=== PATIENT | female | born 1965 | race Caucasian/White ===

== ENCOUNTER → 2020-07-10 11:01 | Outpatient (BNVA) | payer OTHER, SELFPAY | PROVIDERS: PCP Internal Medicine; Visit Provider Anesthesiology | DX: M79.18 Myalgia, other site (principal); M25.519 Pain in unspecified shoulder | CPT/HCPCS: 99202; Q3014 ==

== ENCOUNTER 2021-05-22 13:10 | Outpatient (REF) | payer OTHER, SELFPAY ==
--- NOTE | ~2021-05-22 | MM_ITS ---
EXAMINATION: MM SCREENING DIGITAL BREAST TOMOSYNTHESIS, BILATERAL CLINICAL INFORMATION: Screening. Asymptomatic. The lifetime risk of breast cancer based on the Tyrer-Cuzick Model is 6%. COMPARISON: Mammography: 10/26/2018, 06/26/2016, 05/24/2015 TECHNIQUE: Digital breast tomosynthesis is performed in both the craniocaudal and mediolateral oblique views along with computer-aided detection (CAD). Synthesized 2D images are generated from the tomosynthesis. FINDINGS: The breasts are heterogeneously dense, which may obscure small masses (ACR BI-RADS breast composition Category c). There are no significant masses, abnormal calcifications, or other abnormalities. There are shifting fibroglandular densities as expected related to positioning from year to year. No developing density. The axilla and skin contours are unremarkable. MM/MM tomosynthesis screening BI IMPRESSION: No significant changes from prior exams. ASSESSMENT: BI-RADS 1: Negative RECOMMENDATION: Routine annual mammography screening. This patient's information was entered into a reminder system with a target due date for their next mammogram.
== END 2021-05-22 13:11 | disposition home or self-care (01) ==
LOC: HO.MAMMO 13:10
PROVIDERS: Visit Provider Internal Medicine
DX: Z12.31 Encounter for screening mammogram for malignant neoplasm of breast (principal)
CPT/HCPCS: 77063; 77067

== ENCOUNTER 2021-08-14 09:58 | Outpatient (REF) | payer OTHER, SELFPAY ==
[2021-08-14 11:18] LABS: MANUAL DIFF FLAG NO
[2021-08-14 11:21] LABS: Basophils Percent Auto 0.5 % (0-2); Eosinophils Absolute Auto 0.4 X10*3/uL (0.0-0.4); Eosinophils Percent Auto 4.8 % (0-4); Hematocrit 36.3 % (37.0-47.0); Hemoglobin 11.7 g/dl (12.0-16.0); Imm Gran Abs Auto 0.02 X10*3/uL (0.00-0.03); Imm Gran Pct Auto 0.2 % (0.0-0.4); Lymphocytes Absolute Auto 3.5 X10*3/uL (1.2-4.9); Lymphocytes Percent Auto 41.2 % (20-40); Mean Corpuscular HGB Conc 32.2 g/dl (31.0-35.0); Mean Corpuscular Hemoglobin 30.2 pg (27.0-33.0); Mean Corpuscular Volume 93.8 fL (80.0-98.0); Mean Platelet Volume 10.5 fL (9.4-12.3); Monocytes Absolute Auto 0.9 X10*3/uL (0.1-1.2); Monocytes Percent Auto 10.6 % (2-11); Neutrophils Absolute Auto 3.7 x10*3/uL (2.0-8.3); Neutrophils Percent Auto 42.7 % (45-73); Platelet Count 236 X10*3/uL (160-400); Red Blood Count 3.87 X10*6/uL (4.20-5.50); Red Cell Distribution Width 13.5 % (11.0-16.0); White Blood Count 8.6 X10*3/uL (4.8-10.8)
[2021-08-14 11:54] LABS: Alanine Aminotransferase 16 U/L (0-31); Alkaline Phosphatase 80 U/L (39-117); Anion Gap 10 (12-20); Aspartate Amino Transferase 17 U/L (5-31); Bilirubin Total 0.5 mg/dL (0.0-1.0); Blood Urea Nitrogen 9 mg/dL (9-16); Calcium 10.1 mg/dL (8.4-10.2); Carbon Dioxide 30 mmol/L (22-29); Chloride 106 mmol/L (96-108); Estimated Glomerular Filt Rate > 60; Glucose Random 102 mg/dL (60-115); Potassium 4.1 mmol/L (3.3-5.1); Sodium 142 mmol/L (135-145); Total Protein 7.6 g/dL (6.5-8.0)
== END 2021-08-14 09:59 | disposition home or self-care (01) ==
LOC: HO.LAB 09:58
PROVIDERS: PCP Internal Medicine; Referring Provider Internal Medicine; Visit Provider Nurse Practitioner
DX: K21.9 Gastro-esophageal reflux disease without esophagitis (principal); Z12.11 Encounter for screening for malignant neoplasm of colon; Z83.71 Family history of colonic polyps
CPT/HCPCS: 36415; 80053; 85025; 99212

== ENCOUNTER 2022-04-30 16:19 | Outpatient (REF) | payer OTHER, SELFPAY ==
--- NOTE | ~2022-04-30 | XR_ITS ---
EXAMINATION:XR foot RT min 3V, XR ankle RT min 3V VIEWS ACQUIRED: Frontal lateral and oblique CLINICAL INFORMATION: Reason for Exam INJURY COMPARISON: None available at the time of this dictation. FINDINGS: Small osseous structure near the tip of the lateral malleolus could be a chip fracture versus accessory ossicle. Distal tibia and fibula are intact, tibial plafond and ankle mortise are normal. Talar dome is intact. No dislocation.. Intertarsal, tarsometatarsal, metatarsophalangeal and interphalangeal joints are intact. Surrounding soft tissues is normal. , Small posterior calcaneal spur. XR/XR foot RT min 3V IMPRESSION: Tiny 3 mm osseous structure near the tip of the lateral malleolus could be a chip fracture from the lateral aspect of the talus, alternatively small accessory ossicle. Please correlate with area of tenderness, MRI or CT scan could be utilized for further investigation if clinically indicated. No dislocation.
--- NOTE | ~2022-04-30 | XR_ITS ---
EXAMINATION:XR foot RT min 3V, XR ankle RT min 3V VIEWS ACQUIRED: Frontal lateral and oblique CLINICAL INFORMATION: Reason for Exam INJURY COMPARISON: None available at the time of this dictation. FINDINGS: Small osseous structure near the tip of the lateral malleolus could be a chip fracture versus accessory ossicle. Distal tibia and fibula are intact, tibial plafond and ankle mortise are normal. Talar dome is intact. No dislocation.. Intertarsal, tarsometatarsal, metatarsophalangeal and interphalangeal joints are intact. Surrounding soft tissues is normal. , Small posterior calcaneal spur. XR/XR ankle RT min 3V IMPRESSION: Tiny 3 mm osseous structure near the tip of the lateral malleolus could be a chip fracture from the lateral aspect of the talus, alternatively small accessory ossicle. Please correlate with area of tenderness, MRI or CT scan could be utilized for further investigation if clinically indicated. No dislocation.
== END 2022-04-30 16:20 | disposition home or self-care (01) ==
LOC: HO.XRAY 16:19
PROVIDERS: Visit Provider Emergency Medicine
DX: S99.911A Unspecified injury of right ankle, initial encounter (principal); S99.921A Unspecified injury of right foot, initial encounter
CPT/HCPCS: 73610; 73630

== ENCOUNTER → 2022-05-21 14:57 | Outpatient (BNVA) | payer OTHER, SELFPAY | PROVIDERS: PCP Internal Medicine; Visit Provider Physician Assistant | DX: S93.401A Sprain of unspecified ligament of right ankle, initial encounter (principal) | CPT/HCPCS: 99202 ==

== ENCOUNTER 2022-05-25 11:15 | Outpatient (REF) | payer OTHER, SELFPAY ==
--- NOTE | ~2022-05-25 | MM_ITS ---
EXAMINATION: MM SCREENING DIGITAL BREAST TOMOSYNTHESIS, BILATERAL CLINICAL INFORMATION: Screening. Asymptomatic. The lifetime risk of breast cancer based on the Tyrer-Cuzick Model is 4%. COMPARISON: Mammography: 05/22/2021, 05/28/2019, 06/26/2016 TECHNIQUE: Digital breast tomosynthesis is performed in both the craniocaudal and mediolateral oblique views along with computer-aided detection (CAD). Synthesized 2D images are generated from the tomosynthesis. FINDINGS: There are scattered areas of fibroglandular density (ACR BI-RADS breast composition Category b). There are no significant masses, abnormal calcifications, or other abnormalities. Parenchymal pattern is similar to prior studies. No architectural abnormality. The axilla are unremarkable. No significant changes. MM/MM tomosynthesis screening BI IMPRESSION: No mammographic evidence of malignancy. ASSESSMENT: BI-RADS 1: Negative RECOMMENDATION: Routine annual mammography screening. This patient's information was entered into a reminder system with a target due date for their next mammogram.
== END 2022-05-25 11:16 | disposition home or self-care (01) ==
LOC: HO.MAMMO 11:15
PROVIDERS: Visit Provider Internal Medicine
DX: Z12.31 Encounter for screening mammogram for malignant neoplasm of breast (principal)
CPT/HCPCS: 77063; 77067

== ENCOUNTER 2022-07-09 11:20 | Outpatient (REF) | payer OTHER, SELFPAY ==
--- NOTE | ~2022-07-09 | XR_ITS ---
EXAMINATION: XR ANKLE, RIGHT CLINICAL INFORMATION: Pain COMPARISON: None TECHNIQUE: AP, lateral, and mortise views of the right ankle. FINDINGS: Normal bony mineralization. No fracture, dislocation, destructive process, or visible ankle capsular effusion. The ankle mortise is symmetric. No visible osteochondral lesion talar dome. Subtalar joint unremarkable. The retrocalcaneal recess is preserved. There is a small corticated ossicle adjacent to lateral talar neck just distal to the tip lateral malleolus. There is a bulky posterior calcaneal spur and borderline plantar calcaneal spur. Base fifth metatarsal intact. XR/XR ankle RT min 3V IMPRESSION: -Bulky posterior calcaneal spur. Borderline plantar calcaneal spur. -Tiny corticated ossicle adjacent to lateral talar neck just distal to lateral malleolus. -No fracture, destructive process, or visible ankle capsular effusion.
--- NOTE | ~2022-07-09 | XR_ITS ---
EXAMINATION: XR KNEE, RIGHT XR KNEE, LEFT CLINICAL INFORMATION: Bilateral knee pain COMPARISON: Left knee radiographs 05/30/2018 TECHNIQUE: Each knee is imaged in 4 views. There are a total of 8 views. FINDINGS: Right: Normal bony mineralization. No joint narrowing or erosive change or chondrocalcinosis. No suprapatellar effusion. Hoffa's fat pad appears normal. Axial patella shows no lateralization or tilting. Left: Normal bony mineralization. No joint narrowing or erosive change or chondrocalcinosis. No suprapatellar effusion. Hoffa's fat pad appears normal. Axial patella shows no lateralization or tilting. XR/XR knee LT 4V IMPRESSION: -Unremarkable bilateral knees.
--- NOTE | ~2022-07-09 | XR_ITS ---
EXAMINATION: XR WRIST, RIGHT XR WRIST, LEFT CLINICAL INFORMATION: Fall, pain COMPARISON: None TECHNIQUE: Each wrist is imaged in 4 views. There are a total of 8 views. FINDINGS: Right: No fracture, dislocation, destructive process. Ulnar variance is neutral. There is borderline dorsal bowing distal ulnar. Pronator quadratus fat pad appears normal. No joint narrowing or erosive change or chondrocalcinosis. Left: No fracture, dislocation, destructive process. Ulnar variance is neutral. Pronator quadratus fat pad appears normal. No joint narrowing or erosive change or chondrocalcinosis. XR/XR wrist LT min 3V IMPRESSION: 1. No fracture, dislocation, or arthropathy. 2. Borderline dorsal bowing right distal ulnar.
--- NOTE | ~2022-07-09 | XR_ITS ---
EXAMINATION: XR ELBOW, LEFT CLINICAL INFORMATION: Elbow pain COMPARISON: None TECHNIQUE: AP, lateral, and oblique views of the left elbow. FINDINGS: Normal bony mineralization. No fracture, dislocation, destructive process, or visible capsular effusion. There are 2 punctate ossifications adjacent to the coronoid process and small lateral epicondylar spur. No joint narrowing or erosive change. XR/XR elbow LT min 3V IMPRESSION: -Small lateral epicondylar spur. -2 punctate ossifications adjacent to coronoid process. -No joint narrowing, erosive change, or visible capsular effusion.
--- NOTE | ~2022-07-09 | XR_ITS ---
EXAMINATION: XR WRIST, RIGHT XR WRIST, LEFT CLINICAL INFORMATION: Fall, pain COMPARISON: None TECHNIQUE: Each wrist is imaged in 4 views. There are a total of 8 views. FINDINGS: Right: No fracture, dislocation, destructive process. Ulnar variance is neutral. There is borderline dorsal bowing distal ulnar. Pronator quadratus fat pad appears normal. No joint narrowing or erosive change or chondrocalcinosis. Left: No fracture, dislocation, destructive process. Ulnar variance is neutral. Pronator quadratus fat pad appears normal. No joint narrowing or erosive change or chondrocalcinosis. XR/XR wrist RT min 3V IMPRESSION: 1. No fracture, dislocation, or arthropathy. 2. Borderline dorsal bowing right distal ulnar.
--- NOTE | ~2022-07-09 | XR_ITS ---
EXAMINATION: XR KNEE, RIGHT XR KNEE, LEFT CLINICAL INFORMATION: Bilateral knee pain COMPARISON: Left knee radiographs 05/30/2018 TECHNIQUE: Each knee is imaged in 4 views. There are a total of 8 views. FINDINGS: Right: Normal bony mineralization. No joint narrowing or erosive change or chondrocalcinosis. No suprapatellar effusion. Hoffa's fat pad appears normal. Axial patella shows no lateralization or tilting. Left: Normal bony mineralization. No joint narrowing or erosive change or chondrocalcinosis. No suprapatellar effusion. Hoffa's fat pad appears normal. Axial patella shows no lateralization or tilting. XR/XR knee RT 4V IMPRESSION: -Unremarkable bilateral knees.
== END 2022-07-09 11:21 | disposition home or self-care (01) ==
LOC: HO.XRAY 11:20
PROVIDERS: PCP Internal Medicine; Visit Provider Registered Nurse
DX: M25.571 Pain in right ankle and joints of right foot (principal); M25.531 Pain in right wrist; M25.532 Pain in left wrist; M25.562 Pain in left knee; M25.561 Pain in right knee; M25.522 Pain in left elbow; W10.8XXD Fall (on) (from) other stairs and steps, subsequent encounter
CPT/HCPCS: 73080; 73110; 73564; 73610

== ENCOUNTER 2022-07-13 14:00 | Outpatient (RCR) | payer OTHER, SELFPAY ==
--- NOTE | 2022-06-23 16:17 | MHC.PT.EP ---
[facility] [place] Office [place] Office [place] Office [address] Diana Skaggs [address] [phone] F: [phone] F: [phone] F: [phone] F: [phone] Physical Therapy Plan of Care Date of Evaluation: Date of Surgery: NA Diagnosis: R ANKLE SPRAIN Assessment: Pt IS 56 YO F REFERRED TO PT FROM ORTHO ([facility]) WITH 1.5 MONTH HX OF R ANKLE SPRAIN. Pt WAS STANDING FROM SIT WITH PAIN IN L KNEE (OPP SIDE) AND R LE NUMB (BACK ISSUES) AND TWISTED R ANKLE AND FELL. XRAY NEG DISLOC BUT +SMALL(3MM) BONE CHIP ANT TO LAT MALLEOLUS. Pt PRESENTS WITH MIN GENERALIZED SWELLING R ANKLE, LIMP (NO AD OR ANKLE SUPPORT), DECREASED ANKLE ROM AND STRENGTH. SHOULD BENEFIT FROM PT TO ADDRESS THESE ISSUES. OF NOTE, Pt HAS BACK ISSUES (3 DISCS) AND HAS BEEN RECOMMENDED SURGERY. R LE PARESTHESIA Frequency and Duration: The patient will be seen 2X/WK X 8 WKS Short Term Goals: 1. INCREASED AWARENESS ANKLE CARE 2. I HEP WITH DC EX PLAN 3. IMPROVED GT PATTERN WITH LRAD/NO DEVICE Panel Edge Sealer Goals: 1. INCREASED R ANKLE ROM 5-10 DEGREES T/O 2. DECREASED R ANKLE PAIN AT LEAST 50% WITH ADLS 3. IMPROVED LEFI (0 AT SOC) Treatment Plan: Modalities to reduce pain, spasms and effusion. Manual therapy to restore motion and function. Therapeutic exercise to improve strength and flexibility. Neuromuscular re-education for posture and balance. Therapeutic activities to return to functional activities of daily living. Electronically signed by: ANNABELLE JACKMAN PT Please sign and return to therapist. Thank you for your referral.
--- NOTE | 2022-08-12 09:27 | MHC.PT.DC ---
[facility] [place] Office [place] Office [place] Office [address] Diana Skaggs [address] [phone] F: [phone] F: [phone] F: [phone] F: [phone] Physical Therapy Discharge Report Diagnosis: R ANKLE SPRAIN Date of Surgery: NA Date of Evaluation: 06/23/22 Date of Discharge: 08/12/22 Treatments to Date: 4 Cancellations to Date: 3 No Shows to Date: 2 Discharge Status: Patient Elected to Stop Recommend MD Follow-up Visit Non-compliance Discharge Summary: Pt SEEN FOR INIT EVAL AND 3 VISITS (THE LAST 07/13/22) WITHOUT SIGNIF RELIEF. Pt THEN CANCELLED NEXT 3 VISITS AWAITING XRAYS THEN NO SHOW X 2 WITHOUT FURTHER APPTS SCHEDULED. WILL DC AT THIS TIME Electronically signed by: ANNABELLE JACKMAN PT Please sign and return to therapist. Thank you for your referral.
== END 2022-08-12 09:28 | disposition home or self-care (01) ==
LOC: HO.PT 14:00
PROVIDERS: PCP Internal Medicine; Visit Provider Physician Assistant
DX: S93.401A Sprain of unspecified ligament of right ankle, initial encounter (principal)
CPT/HCPCS: 97110; 97162; 97530; 97535

== ENCOUNTER → 2022-09-09 13:38 | Outpatient (BNVA) | payer OTHER, SELFPAY | PROVIDERS: Visit Provider Physician Assistant | DX: S93.401D Sprain of unspecified ligament of right ankle, subsequent encounter (principal) | CPT/HCPCS: 99212 ==

== ENCOUNTER 2022-10-22 13:40 | Outpatient (REF) | payer OTHER, SELFPAY ==
--- NOTE | 2022-10-22 11:00 | EMG_ITS ---
Right tibial and peroneal motor studies were performed. Right sural and superficial sensory studies were performed. Tibial H-reflex was obtained, and needle examination was performed. IMPRESSION: Right lower lumbar radiculopathy. MD ARMOND Boyer/TALHA / [id number]
== END 2022-10-22 13:41 | disposition home or self-care (01) ==
LOC: HO.NEURO 13:40
PROVIDERS: PCP Internal Medicine; Visit Provider Internal Medicine
DX: M51.16 Intervertebral disc disorders with radiculopathy, lumbar region (principal)
CPT/HCPCS: 95886; 95909

== ENCOUNTER 2023-03-17 13:49 | Outpatient (AMB) | payer OTHER, SELFPAY ==
[2023-03-17 14:01] VITALS: BP 124/60; PULSE 74; RESP 14; O2SAT 98; BMI 24.0
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
== END 2023-03-17 14:23 | disposition home or self-care (01) ==
PROVIDERS: PCP Internal Medicine; Visit Provider Registered Nurse Emergency
DX: M54.16 Radiculopathy, lumbar region (principal); M47.816 Spondylosis without myelopathy or radiculopathy, lumbar region
CPT/HCPCS: 99214

== ENCOUNTER → 2023-03-17 13:49 | Outpatient (BNVA) | payer OTHER, SELFPAY | PROVIDERS: PCP Internal Medicine; Visit Provider Registered Nurse Emergency | DX: M54.16 Radiculopathy, lumbar region (principal); M47.816 Spondylosis without myelopathy or radiculopathy, lumbar region | CPT/HCPCS: 99212 ==

== ENCOUNTER 2023-05-17 12:54 | Outpatient (REF) | payer OTHER, SELFPAY | END 2023-05-17 12:55 | disposition home or self-care (01) | LOC: HO.MRI 12:54 | PROVIDERS: PCP Internal Medicine; Visit Provider Registered Nurse Emergency | DX: M54.16 Radiculopathy, lumbar region (principal); M47.816 Spondylosis without myelopathy or radiculopathy, lumbar region | CPT/HCPCS: 72148 ==

== ENCOUNTER 2023-05-31 10:19 | Outpatient (REF) | payer OTHER, SELFPAY ==
--- NOTE | ~2023-05-31 | MM_ITS ---
EXAMINATION: MM SCREENING DIGITAL BREAST TOMOSYNTHESIS, BILATERAL CLINICAL INFORMATION: Screening. Asymptomatic. COMPARISON: Mammography: This study is compared with prior exams dating back to 2016. TECHNIQUE: Digital breast tomosynthesis is performed in both the craniocaudal and mediolateral oblique views along with computer-aided detection (CAD). Synthesized 2D images are generated from the tomosynthesis. FINDINGS: There are scattered areas of fibroglandular density (ACR BI-RADS breast composition Category b). There are no significant masses, abnormal calcifications, or other abnormalities. MM/MM tomosynthesis screening BI IMPRESSION: No mammographic evidence of malignancy. ASSESSMENT: BI-RADS BI-RADS 1 - Negative RECOMMENDATION: Routine annual mammography screening. 1 year F/U This examination should not preclude the clinical evaluation of a suspicious palpable abnormality. This patient's information was entered into a reminder system with a target due date for their next mammogram.
== END 2023-05-31 10:20 | disposition home or self-care (01) ==
LOC: HO.MAMMO 10:19
PROVIDERS: PCP Internal Medicine; Visit Provider Internal Medicine
DX: Z12.31 Encounter for screening mammogram for malignant neoplasm of breast (principal)
CPT/HCPCS: 77063; 77067

== ENCOUNTER → 2023-05-31 10:45 | Outpatient (BNV) | payer OTHER, SELFPAY | PROVIDERS: PCP Internal Medicine; Visit Provider Radiology Diagnostic Radiology | DX: Z12.31 Encounter for screening mammogram for malignant neoplasm of breast (principal) | CPT/HCPCS: 77063; 77067 ==

== ENCOUNTER 2023-08-04 14:54 | Outpatient (AMB) | payer OTHER, SELFPAY ==
[2023-08-04 14:55] VITALS: BP 142/65; PULSE 97; O2SAT 97; BMI 26.9
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
== END 2023-08-04 15:27 | disposition home or self-care (01) ==
PROVIDERS: PCP Internal Medicine; Visit Provider Registered Nurse Emergency
DX: M54.16 Radiculopathy, lumbar region (principal); M47.816 Spondylosis without myelopathy or radiculopathy, lumbar region; M62.830 Muscle spasm of back
CPT/HCPCS: 99214

== ENCOUNTER → 2023-08-04 14:54 | Outpatient (BNVA) | payer OTHER, SELFPAY | PROVIDERS: PCP Internal Medicine; Visit Provider Registered Nurse Emergency | DX: M54.16 Radiculopathy, lumbar region (principal); M47.816 Spondylosis without myelopathy or radiculopathy, lumbar region; M62.830 Muscle spasm of back | CPT/HCPCS: 99212 ==

== ENCOUNTER 2023-12-12 11:55 | Emergency (ER) | payer OTHER, SELFPAY ==
--- NOTE | ~2023-12-12 | CT_ITS ---
EXAMINATION: CT head/brain wo IV con CLINICAL INFORMATION: dizziness, gait disturbance COMPARISON: Noncontrast head CT 08/15/2018. TECHNIQUE: Contiguous axial imaging was performed from the skull base to vertex without intravenous contrast. Sagittal and coronal reformatted images were obtained. This CT examination was performed using dose optimization techniques as appropriate, variously including the following: * Automated exposure control * Adjustment of mA and/or kV according to patient size (this includes techniques or standardized protocols for targeted exams where dose is matched to indication/reason for exam; i.e. extremities or head) Use of iterative reconstruction technique DLP: 637 mGy-cm FINDINGS: No acute osseous or soft tissue abnormality. The mastoid air cells and visualized portions of the paranasal sinuses are well aerated. There is no evidence of acute intracranial hemorrhage or territorial infarction. No abnormal mass effect or midline shift is seen. Salazar to white matter differentiation is well preserved. No extra-axial fluid collections are identified. No hydrocephalus. No significant volume loss. There is no abnormal attenuation within the brain parenchyma. CT/CT head/brain wo IV con IMPRESSION: No acute intracranial abnormality including hemorrhage, mass effect, hydrocephalus, or acute territorial edematous infarction.
[2023-12-12 12:20] VITALS: BP 158/77; PULSE 96; RESP 20; TEMP 36.6; O2SAT 99; BMI 26.8
--- NOTE | 2023-12-12 12:21 | ED.DIZZY ---
HPI - Dizziness General Chief Complaint: Dizziness Stated Complaint: lightheaded, blurry vision Time Seen by Provider: 12/12/23 12:53 Source: patient Mode of arrival: ambulatory Limitations: no limitations History of Present Illness HPI Narrative: 58 yo female with history of PTSD, depression, anxiety who presents to the ER for evaluation of dizziness and balance issues that started when she woke up this morning. Patient states the soon as she woke up she noticed that she was dizzy upon sitting up. She states she was walking to 1 side and swaying when she walked down the hallway. She reports symptoms are worse with ambulation and position changes. She reports intermittent blurry vision, none at present. No weakness, numbness, tingling. No nausea or vomiting. Symptoms have been waxing and waning. No history of vertigo. No headache. MD elicited complaint: dizziness Onset (ago): hour(s) Timing: sudden onset Severity: moderate Description: lightheadedness, off-balance and difficulty walking Context: change in body position Exacerbating factors: movement/ambulation, change in body position and standing Relieving factors: remaining still and lying down Associated neuro symptoms: vision changes Related Data Home Medications ?Medication ?Instructions ?Recorded ?Confirmed loratadine 10 mg tablet (Allergy 10 mg PO DAILY 07/10/20 09/09/22 Relief (loratadine)) lorazepam 0.5 mg tablet (Ativan) 0.5 mg PO BID PRN 07/10/20 09/09/22 lorazepam 1 mg/0.5 mL oral syringe 1 mg PO BID PRN 07/10/20 09/09/22 (FOR ORAL USE ONLY) naloxone 4 mg/actuation nasal 4 mg intranasal Q2M PRN 07/10/20 09/09/22 spray (Narcan) oxycodone 10 mg tablet 10 mg PO Q6H PRN 07/10/20 09/09/22 zolpidem 10 mg tablet 10 mg PO BEDTIME PRN 07/10/20 09/09/22 diclofenac sodium 1 % topical gel 1 ea topical QID 05/21/22 09/09/22 ibuprofen 400 mg tablet 800 mg PO Q8H PRN pain 05/21/22 09/09/22 zolpidem 5 mg tablet (Ambien) 5 mg PO BEDTIME PRN 05/21/22 09/09/22 Previous Rx's ?Medication ?Instructions ?Recorded tizanidine 4 mg capsule 4 mg PO TID PRN muscle spasticity 04/09/21 30 days #90 caps peg 3350-electrolytes 236 240 ml PO Q10M 1 day #4,000 mL 08/14/21 gram-22.74 gram-6.74 gram-5.86 gram solution (Golytely) lidocaine 5 % topical patch 1 patch topical DAILY pain #30 ea 03/17/23 ibuprofen 800 mg tablet 800 mg PO Q8H PRN for pain #90 tabs 06/02/23 tizanidine 2 mg tablet 2 mg PO TID PRN muscle spasticity 10/11/23 #90 tabs meclizine 50 mg tablet 50 mg PO BID PRN dizziness #14 tabs 12/12/23 Allergies Allergy/AdvReac Type Severity Reaction Status Date / Time morphine [MORPHINE] Allergy Intermediate RASH Verified 12/12/23 12:22 Review of Systems Review of Systems: Yes all other systems are reviewed and are negative [facility] Past Medical History Medical History Acute shoulder pain Anxiety Myofascial pain syndrome Surgical History H/O excision of dermoid cyst H/O shoulder surgery History of cholecystectomy History of tubal ligation Social History Social History Alcohol intake: former Smoked in Last 30 Days: No Use of substances other than those prescribed or required for medical reasons: No Advance Directives: No Advance Directives Information Provided: No Do you have a plan to hurt others: No Plan Current occupational status: disabled Current occupation: left hand Physical Exam Vital Signs: Vital Signs: Last Vital Signs Temp 98.1 F 12/12/23 15:40 Pulse 90 12/12/23 15:40 Resp 18 12/12/23 15:40 BP 117/77 12/12/23 15:40 Pulse Ox 98 12/12/23 15:40 O2 Del Method Room Air 12/12/23 15:40 BMI result Body Mass Index 26.8 Appearance: Alert. Oriented X3. No acute distress. Head: normocephalic, atraumatic. Eyes: Pupils equal, round and reactive to light. Horizontal nystagmus ENT: Pharynx normal. No tonsillar swelling or exudate. Neck: Normal inspection. Neck supple. CVS: Normal heart rate and rhythm. Pulses normal. Respiratory: No respiratory distress. Breath sounds normal. Abdomen: Soft and nontender. +BS x4 Skin: Skin warm and dry. Normal skin color. Normal skin turgor. No rashes. Extremities: No lower extremity edema. No joint swelling. Neuro/psych: Oriented X 3. No motor deficit. No sensory deficit. CN II-XII intact. Normal speech and cognition. Normal heel to jackson and finger to nose bilaterally. Course Course Course Narrative: This is an RME performed by Milena Murphy, SURVEILLANCE SYSTEMS ENGINEER: Additional HPI, ROS, PE not included below will be deferred to primary provider. Patient is a 58 y.o. old female who presents emergency department for evaluation reporting she Awoke this morning with dizziness lightheadedness and blurred vision. She states when getting out of bed she almost fell into the wall. She feels like she is having difficulty walking straight, feels as though she is being pulled to the left and right side. She reports feeling well before going to bed last night. Denies any history of similar symptoms in the past. Currently denies headache, neck pain, chest pain, shortness of breath, difficulty breathing, nausea, vomiting numbness or tingling of the extremities, symptoms. Denies any recent fall or injury. Plan: Labs, EKG Medications Administered Discontinued Medications Generic Name Dose Route Start Last Admin Trade Name Freq PRN Reason Stop Dose Admin Meclizine HCl 50 mg 12/12/23 13:46 12/12/23 14:07 Meclizine Hcl 25 Mg Tablet PO 12/12/23 13:47 50 mg ONCE ONE Administration Oxycodone HCl 10 mg 12/12/23 15:28 12/12/23 15:34 Oxycodone Hcl Immed Release 5 Mg Tablet PO 12/12/23 15:29 10 mg ONCE ONE Administration Medical Decision Making Medical Decision Making [facility] Narrative: 58-year-old female presents to the ER for evaluation of acute onset of dizziness and gait instability that started when she woke up this morning. NIH is 0 with no visual field deficits, normal cerebellar function on exam. Initial concern for posterior CVA, out of any treatment window for TNK Lab work is unremarkable. CT scan of the head is unremarkable. Orthostatics are negative. She was treated with 50 mg of meclizine with significant improvement in her symptoms. Most likely BPPV. She is on chronic oxycodone 10 mg every 6 hours, asking for her next dose. At this time patient is stable for discharge home with p.r.n. meclizine. She was given strict return precautions. Differential Diagnosis Differential Diagnoses: The differential diagnosis associated with the presentation includes BPPV, posterior CVA, orthostatic hypotension, TIA Admission/Observation Consideration of admission/observation: Escalation of care including admission/observation considered Lab Data MDM Lab Attestation statement: I reviewed the patient's lab results. no metabolic abnormality 12/12/23 12:35 12/12/23 12:35 Labs: Lab Results 12/12/23 Range/Units 12:35 WBC 7.7 (4.8-10.8) X10*3/uL RBC 4.07 L (4.20-5.50) X10*6/uL Hgb 12.4 (12.0-16.0) g/dl Hct 38.2 (37.0-47.0) % MCV 93.9 (80.0-98.0) fL MCH 30.5 (27.0-33.0) pg MCHC 32.5 (31.0-35.0) g/dl RDW 12.8 (11.0-16.0) % Plt Count 280 (160-400) X10*3/uL MPV 10.6 (9.4-12.3) fL Immature Gran % (Auto) 0.3 (0.0-0.4) % Neut % (Auto) 54.1 (45-73) % Lymph % (Auto) 34.4 (20-40) % Baxter % (Auto) 8.5 (2-11) % Eos % (Auto) 2.3 (0-4) % Baso % (Auto) 0.4 (0-2) % Lymph # (Auto) 2.6 (1.2-4.9) X10*3/uL Baxter # (Auto) 0.7 (0.1-1.2) X10*3/uL Eos # (Auto) 0.2 (0.0-0.4) X10*3/uL Baso # (Auto) 0.0 (0.0-0.2) X10*3/uL Abs Immat Gran (auto) 0.02 (0.00-0.03) X10*3/uL Absolute Neuts (auto) 4.2 (2.0-8.3) x10*3/uL Absolute Nucleated RBC 0.000 (0.0-0.012) X10*3/uL Nucleated RBC % (auto) 0.0 (0.0-0.2) /100WBC Sodium 140 (135-145) mmol/L Potassium 3.9 (3.3-5.1) mmol/L Chloride 107 (96-108) mmol/L Carbon Dioxide 25 (22-29) mmol/L Anion Gap 12 (12-20) BUN 12 (9-16) mg/dL Creatinine 0.71 (0.5-1.4) mg/dL Estim Creat Clear Calc 72.4 Estimated GFR > 60 Random Glucose 91 (60-115) mg/dL Calcium 9.6 (8.4-10.2) mg/dL Magnesium 1.9 (1.6-2.6) mg/dL Total Bilirubin 0.4 (0.0-1.0) mg/dL AST 17 (5-31) U/L ALT 14 (0-31) U/L Alkaline Phosphatase 96 (39-117) U/L Troponin I High Sens < 2.7 (<3.5-17.0) ng/L Total Protein 7.7 (6.5-8.0) g/dL Albumin 3.8 (3.5-5.0) g/dL Influenza Type A (PCR) NEGATIVE (Negative) Influenza Type B (PCR) NEGATIVE (Negative) RSV RNA Qual (PCR) NEGATIVE (Negative) SARS-CoV-2 RNA (RT-PCR) NEGATIVE (Negative) Independent Interpretation I performed an independent interpretation of an: EKG and CT Scan Interpretation: EKG with normal sinus rhythm, ventricular rate 78 beats per minute, normal CA interval, normal QTC, no ST segment elevations or depressions, no change from prior CT without acute bleed or edema Radiology Impression Discussion of test interpretation with radiology: I have reviewed the radiologist's reading. Radiologist Impression: EXAMINATION: CT head/brain wo IV con CLINICAL INFORMATION: dizziness, gait disturbance COMPARISON: Noncontrast head CT 08/15/2018. TECHNIQUE: Contiguous axial imaging was performed from the skull base to vertex without intravenous contrast. Sagittal and coronal reformatted images were obtained. This CT examination was performed using dose optimization techniques as appropriate, variously including the following: * Automated exposure control * Adjustment of mA and/or kV according to patient size (this includes techniques or standardized protocols for targeted exams where dose is matched to indication/reason for exam; i.e. extremities or head) Use of iterative reconstruction technique DLP: 637 mGy-cm FINDINGS: No acute osseous or soft tissue abnormality. The mastoid air cells and visualized portions of the paranasal sinuses are well aerated. There is no evidence of acute intracranial hemorrhage or territorial infarction. No abnormal mass effect or midline shift is seen. Salazar to white matter differentiation is well preserved. No extra-axial fluid collections are identified. No hydrocephalus. No significant volume loss. There is no abnormal attenuation within the brain parenchyma. CT/CT head/brain wo IV con IMPRESSION: No acute intracranial abnormality including hemorrhage, mass effect, hydrocephalus, or acute territorial edematous infarction. External Record Review External record reviewed: Outpatient record Tests considered The following testing was considered but not selected: Considered MRI Prescription Management I considered prescription management with: Other (Meclizine) Chronic Conditions Patient?s care impacted by: Other (Chronic pain on chronic opiates) Critical Care Time Critical Care Time Critical Care Time: No Discharge Plan Discharge Clinical Impression: Dizziness Patient Disposition: Home, Self-Care Instructions: Dizziness (ED) Additional Instructions: Your lab workup, EKG and CT head were all unremarkable today. You improved with treatment for vertigo. Take the prescribed medication as needed for ongoing dizziness. Rest and stay hydrated. When changing positions do so slowly. If you develop new or worsening symptoms call 911 or come back to the ER for further evaluation. Prescriptions: New meclizine 50 mg tablet 50 mg PO BID PRN (Reason: dizziness) Qty: 14 0RF No Action tizanidine 4 mg capsule 4 mg PO TID PRN (Reason: muscle spasticity) 30 Days Qty: 90 8RF ibuprofen 800 mg tablet 800 mg PO Q8H PRN (Reason: for pain) Qty: 90 3RF tizanidine 2 mg tablet 2 mg PO TID PRN (Reason: muscle spasticity) Qty: 90 1RF lorazepam 1 mg/0.5 mL syringe 1 mg PO BID PRN Narcan 4 mg/actuation spray,non-aerosol 4 mg intranasal Q2M PRN Rx Instructions: spray 1 dose into ONE nostril; alternate nostrils w each dose until help arrives oxycodone 10 mg tablet 10 mg PO Q6H PRN lorazepam [Ativan] 0.5 mg tablet 0.5 mg PO BID PRN zolpidem 10 mg tablet 10 mg PO BEDTIME PRN loratadine [Allergy Relief (loratadine)] 10 mg tablet 10 mg PO DAILY peg 3350-electrolytes [Golytely] 236-22.74-6.74 -5.86 gram recon soln 240 ml PO Q10M 1 Days Qty: 4000 0RF Rx Instructions: until fecal effluent is clear; do not exceed a total volume of 2,000 mL diclofenac sodium 1 % gel 1 ea topical QID zolpidem [Ambien] 5 mg tablet 5 mg PO BEDTIME PRN ibuprofen 400 mg tablet 800 mg PO Q8H PRN (Reason: pain) lidocaine 5 % adhesive patch,medicated 1 patch topical DAILY Qty: 30 0RF Rx Instructions: leave on most painful area for up to 12 hrs Referrals: Laney Kirkpatrick MD [Primary Care Provider] - Interventions: ED Discharge Assessment Last Done: 12/12/23 15:40 Discharge Date/Time: 12/12/23 15:54 Print Language: Albanian
--- NOTE | 2023-12-12 12:23 | ECG_ITS ---
Test Reason : DIZZINESS Blood Pressure : / mmHG Vent. Rate : 078 BPM Atrial Rate : 078 BPM P-R Int : 136 ms QRS Dur : 090 ms QT Int : 366 ms P-R-T Axes : 049 022 026 degrees QTc Int : 417 ms Normal sinus rhythm Normal ECG When compared with ECG of 17-DEC-2015 13:06, No significant change was found Referred By: Raina Murphy Electronically Signed By:Samy Dye
[2023-12-12 12:50] LABS: MANUAL DIFF FLAG NO
[2023-12-12 12:52] LABS: Basophils Percent Auto 0.4 % (0-2); Eosinophils Absolute Auto 0.2 X10*3/uL (0.0-0.4); Eosinophils Percent Auto 2.3 % (0-4); Hematocrit 38.2 % (37.0-47.0); Hemoglobin 12.4 g/dl (12.0-16.0); Imm Gran Abs Auto 0.02 X10*3/uL (0.00-0.03); Imm Gran Pct Auto 0.3 % (0.0-0.4); Lymphocytes Absolute Auto 2.6 X10*3/uL (1.2-4.9); Lymphocytes Percent Auto 34.4 % (20-40); Mean Corpuscular HGB Conc 32.5 g/dl (31.0-35.0); Mean Corpuscular Hemoglobin 30.5 pg (27.0-33.0); Mean Corpuscular Volume 93.9 fL (80.0-98.0); Mean Platelet Volume 10.6 fL (9.4-12.3); Monocytes Absolute Auto 0.7 X10*3/uL (0.1-1.2); Monocytes Percent Auto 8.5 % (2-11); Neutrophils Absolute Auto 4.2 x10*3/uL (2.0-8.3); Neutrophils Percent Auto 54.1 % (45-73); Platelet Count 280 X10*3/uL (160-400); Red Blood Count 4.07 X10*6/uL (4.20-5.50); Red Cell Distribution Width 12.8 % (11.0-16.0); White Blood Count 7.7 X10*3/uL (4.8-10.8)
[2023-12-12 13:04] VITALS: BP 112/79; PULSE 70; RESP 18; TEMP 36.7; O2SAT 99
[2023-12-12 13:13] LABS: Alanine Aminotransferase 14 U/L (0-31); Albumin Level 3.8 g/dL (3.5-5.0); Alkaline Phosphatase 96 U/L (39-117); Anion Gap 12 (12-20); Aspartate Amino Transferase 17 U/L (5-31); Bilirubin Total 0.4 mg/dL (0.0-1.0); Blood Urea Nitrogen 12 mg/dL (9-16); Calcium 9.6 mg/dL (8.4-10.2); Carbon Dioxide 25 mmol/L (22-29); Chloride 107 mmol/L (96-108); Creatinine Clr Calc Pharmacy 72.4; Estimated Glomerular Filt Rate > 60; Glucose Random 91 mg/dL (60-115); Magnesium 1.9 mg/dL (1.6-2.6); Potassium 3.9 mmol/L (3.3-5.1); Sodium 140 mmol/L (135-145); Total Protein 7.7 g/dL (6.5-8.0)
[2023-12-12 13:29] LABS: Troponin-I High Sensitivity < 2.7 ng/L (<3.5-17.0)
[2023-12-12 13:41] VITALS: BP 116/77; PULSE 80
[2023-12-12 13:44] LABS: Influenza A PCR NEGATIVE (Negative); Influenza B PCR NEGATIVE (Negative); Resp Syncy Virus RNA Qual PCR NEGATIVE (Negative); SARS COV2 PCR INHOUSE NEGATIVE (Negative)
[2023-12-12 13:46] VITALS: BP 119/76; PULSE 80
[2023-12-12 13:47] VITALS: BP 117/77; PULSE 81
[2023-12-12] MEDS: Meclizine HCl 25 MG TABLET 50 MG PO (14:07)
[2023-12-12] MEDS: oxyCODONE HCl Immed Release 5 MG TABLET 10 MG PO (15:34)
[2023-12-12 15:40] VITALS: BP 117/77; PULSE 90; RESP 18; TEMP 36.7; O2SAT 98
== END 2023-12-12 15:54 | disposition home or self-care (01) ==
PROVIDERS: Nurse Practitioner Family; Emergency Provider Emergency Medicine; PCP Internal Medicine
DX: R42 Dizziness and giddiness (principal); Z03.818 Encounter for observation for suspected exposure to other biological agents ruled out
CPT/HCPCS: 0241U; 36415; 70450; 80053; 83735; 84484; 85025; 93005; 99284; 99285

== ENCOUNTER → 2023-12-12 12:23 | Outpatient (BNV) | payer OTHER, SELFPAY | PROVIDERS: Emergency Provider Emergency Medicine; PCP Internal Medicine; Visit Provider Internal Medicine Cardiovascular Disease | DX: R42 Dizziness and giddiness (principal) | CPT/HCPCS: 93010 ==

== ENCOUNTER 2024-04-13 13:12 | Outpatient (REF) | payer OTHER, SELFPAY ==
[2024-04-13 16:50] LABS: Alanine Aminotransferase 24 U/L (0-31); Albumin Level 3.9 g/dL (3.5-5.0); Alkaline Phosphatase 99 U/L (39-117); Aspartate Amino Transferase 29 U/L (5-31); Bilirubin Direct 0.2 mg/dL (0.0-0.5); Bilirubin Total 0.5 mg/dL (0.0-1.0); Total Protein 7.8 g/dL (6.5-8.0)
[2024-04-13 17:07] LABS: TSH reflex Free T4 0.98 uIU/mL (0.32-4.0)
[2024-04-14 10:37] LABS: Syphilis Screen Nonreactive (Nonreactive)
[2024-04-14 11:16] LABS: HBS Num1 > 1000.00 mIU/mL (0-7.99); HBc Num1 5.13 S/CO (0.00-0.79); HBsAGNum1 0.23 S/CO (0.00-0.99); HIV AB/AG Nonreactive (Nonreactive); HIV Num 1 0.05 S/CO (0.00-0.99); Hepatitis A Antibody IgM 0.19 Index (0-0.79); Hepatitis B Surface Antigen Negative (Negative); ~HepC Num1 0.14 S/CO (0.00-0.79); ~Hepatitis A Antibody IgM Nonreactive (Nonreactive); ~Hepatitis B Surface Antibody REACTIVE (Nonreactive); ~Hepatitis C Antibody Nonreactive (Nonreactive)
[2024-04-14 14:15] LABS: HBc Num2 5.19 S/CO; Hepatitis B Core Antibody Reactive (Nonreactive)
== END 2024-04-13 13:13 | disposition home or self-care (01) ==
LOC: HO.HHCL 13:12
PROVIDERS: Visit Provider Internal Medicine
DX: F41.0 Panic disorder [episodic paroxysmal anxiety] (principal); M51.16 Intervertebral disc disorders with radiculopathy, lumbar region; E55.9 Vitamin D deficiency, unspecified
CPT/HCPCS: 36415; 80076; 82306; 84443; 86704; 86705; 86706; 86709; 86780; 86803; 87340; 87389

== ENCOUNTER 2024-05-03 13:38 | Outpatient (AMB) | payer OTHER, SELFPAY ==
[2024-05-03 13:58] VITALS: BP 115/55; PULSE 90; O2SAT 97
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
== END 2024-05-03 14:15 | disposition home or self-care (01) ==
PROVIDERS: PCP Internal Medicine; Visit Provider Registered Nurse Emergency
DX: M54.16 Radiculopathy, lumbar region (principal); M47.816 Spondylosis without myelopathy or radiculopathy, lumbar region; M62.830 Muscle spasm of back
CPT/HCPCS: 99214; G2211

== ENCOUNTER → 2024-05-03 13:38 | Outpatient (BNVA) | payer OTHER, SELFPAY | PROVIDERS: PCP Internal Medicine; Visit Provider Registered Nurse Emergency | DX: M54.16 Radiculopathy, lumbar region (principal); M47.816 Spondylosis without myelopathy or radiculopathy, lumbar region; M62.830 Muscle spasm of back | CPT/HCPCS: 99212 ==

== ENCOUNTER 2024-05-18 09:50 | Outpatient (REF) | payer OTHER, SELFPAY ==
[2024-05-22 07:37] LABS: RPR Rapid Plasma Reagin NON-REACTIVE (NON-REACTIVE)
== END 2024-05-18 09:51 | disposition home or self-care (01) ==
LOC: HO.HHCL 09:50
PROVIDERS: Visit Provider Family Medicine
DX: L30.9 Dermatitis, unspecified (principal)
CPT/HCPCS: 36415; 86592; 87255

== ENCOUNTER 2024-06-05 12:44 | Outpatient (REF) | payer OTHER, SELFPAY ==
--- NOTE | ~2024-06-05 | MM_ITS ---
EXAMINATION: MM SCREENING DIGITAL BREAST TOMOSYNTHESIS, BILATERAL CLINICAL INFORMATION: Screening. Asymptomatic. COMPARISON: Mammography: Comparison is made with available priors TECHNIQUE: Digital breast mammography with tomosynthesis is performed in both the craniocaudal and mediolateral oblique views along with computer-aided detection (CAD). FINDINGS: The breasts are heterogeneously dense, which may obscure small masses (ACR BI-RADS breast composition Category c). There are no significant masses, abnormal calcifications, or other abnormalities. MM/MM tomosynthesis screening BI IMPRESSION: No mammographic evidence of malignancy. ASSESSMENT: BI-RADS BI-RADS 1 - Negative RECOMMENDATION: Routine annual mammography screening. 1 year F/U This examination should not preclude the clinical evaluation of a suspicious palpable abnormality. This patient's information was entered into a reminder system with a target due date for their next mammogram. Electronically signed by: Eva Rosales DO 06/13/2024 03:09 PM [facility]MAN
== END 2024-06-05 12:45 | disposition home or self-care (01) ==
LOC: HO.MAMMO 12:44
PROVIDERS: PCP Internal Medicine; Visit Provider Internal Medicine
DX: Z12.31 Encounter for screening mammogram for malignant neoplasm of breast (principal)
CPT/HCPCS: 77063; 77067

== ENCOUNTER → 2024-06-05 13:00 | Outpatient (BNV) | payer OTHER, SELFPAY | PROVIDERS: PCP Internal Medicine; Visit Provider Internal Medicine | DX: Z12.31 Encounter for screening mammogram for malignant neoplasm of breast (principal) | CPT/HCPCS: 77063; 77067 ==

== ENCOUNTER 2024-10-18 13:23 | Outpatient (AMB) | payer OTHER, SELFPAY ==
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
[2024-10-18 13:42] VITALS: BP 150/70; PULSE 93; RESP 16; O2SAT 99; BMI 30.4
--- OUTSIDE RECORDS SUMMARY | 2024-10-18 15:44 | XMS_ITS | Encounter Summary ---
Author Organization [employer] Address [address] [facility] 7t [place] [address] Care Team Providers Care Hair Worker Name Role Phone Laney Kirkpatrick MD Primary Care Provider + Reason for Visit * Reason Comments Consult Encounter Details Date Type Department Care Team (Latest Contact Info) Description 09/20/2024 1:30 PM EST Office Visit [facility] [address] [place], [place] [phone] Pawel Pate DDS [address] [place] [address] Chronic periodontitis (Primary Dx); Dental abscess; Retained dental root Social History Tobacco Use Types Packs/Day Years Used Date Smoking Tobacco: Never Passive Smoke Exposure: Never Smokeless Tobacco: Never Alcohol Use Standard Drinks/Week Comments Never 0 (1 standard drink = 0.6 oz pur e alcohol) Depression Answer Date Recorded Patient Health Questionnaire-9 Score 7 11/09/2022 Housing Stability Answer Date Recorded What is your housing situation today? I have dionicio penningtno 09/04/[address] you li ve. Do you have problems with any of the following? None of the above 09/04/2024 Food Insecurity Answer Date Recorded Within the past 12 months, y ou worried that your food would run out before you got money to buy more: Never True 09/04/2024 Within the past 12 months,th e food you bought just didn't last and you didn't have enough money to get more: Never True Transportation Answer Date Recorded In the past 12 months, has l ack of transportation kept you from medical appts, meetings, work or from getting things needed for daily living? No 09/04/2024 Utilities Answer Date Recorded In the past 12 months, has t he electric, gas, oil or water company threatened to shut off services in your home? No 09/04/2024 Depression Answer Date Recorded Patient Health Questionnaire-2 Score 3 11/09/2022 Internet Access Answer Date Recorded Internet Access Q1 Yes 09/04/2024 Internet Access Q2 Not on file 09/04/2024 Comments No Sex and Gender Information Value Date Recorded Sex Assigned at Female 06/08/2022 10:15 AM EDT Legal Sex Female 10:15 AM EDT Gender Identity Female 06/08/2022 10:15 AM EDT Sexual Orientation Straight 06/08/2022 10 :15 AM EDT documented as of this encounter Last Filed Vital Signs Vital Sign Reading Time Taken Comments Blood Pressure 140/80 09/20/2024 1:36 PM EST Pulse - - Temperature - - Respiratory Rate - - Oxygen Saturation - - Inhaled Oxygen Concentration - - Weight - - Height - - Body Mass Index - - documented in this encounter Progress Notes * Pawel Pate DDS - 09/20/2024 1:30 PM EST Dental procedures in this visit [id number] - LIMITED ORAL EVALUATION - PROBLEM FOCUSED (Completed) Service provider: Pawel Pate DDS Billing provider: Pawel Pate DDS [id number] - ADJUNCTIVE GENERAL SERVICES - PROFESSIONAL VISITS - CASE PRESENTATION, SUBSEQUENT TO DETAILED AND EXTENSIVE TREATMENT PLANNING (Completed) Service provider: Pawel Pate DDS Billing provider: Pawel Pate DDS Patient ID: Ivett Carlson is a 59 y.o. female. Time Out: Timeout Date: 09/20/24, Timeout Time: 1337 (time out for consult) Location: [facility] Tooth: #18 and #20 Procedure: Emergency Verified the above with patient, tiler's assistant, and provider. Confirmed via patient's chart, intraorally and by radiographs. Special Education Case Manager: not applicable Chief Complaint Patient presents with Consult Medical Hx: Vitals: Blood pressure (!) 140/80. Past Medical History: Diagnosis Date Anxiety Diabetes mellitus ([facility]) Medications: Outpatient Encounter Medications as of 09/20/2024 Medication Sig Dispense Refill Blood Pressure Monitor kit Use as directed 3x/week 1 kit 0 chlorhexidine (Peridex) 0.12 % solution SWISH 15 ML MORNING AND NIGHT FOR 1 MINUTE. SPIT, DO NOT SWALLOW. DO NOT EAT OR DRINK FOR 30 MINUTES FOLLOWING USE. 473 mL 0 cyclobenzaprine (Flexeril) 10 MG tablet TAKE 1 TABLET BY MOUTH TWICE A DAY IF NEEDED FOR MUSCLE SPASMS 60 tablet 0 Diclofenac Sodium 1 % gel APPLY 2 GRAMS TO AFFECTED AREA 3 TIMES A DAY 100 g 0 diphenhydrAMINE (BENADryl) 25 MG capsule TAKE 1 TO 2 CAPSULES BY MOUTH EVERY 4 TO 6 HOURS [id number] capsule 0 DULoxetine (Cymbalta) [address] capsule TAKE 1 CAPSULE BY MOUTH EVERY DAY. DO NOT CRUSH OR CHEW. 30 capsule 2 loratadine (Claritin) 10 MG tablet TAKE 1 TABLET BY MOUTH EVERY DAY IN THE MORNING 90 tablet 1 LORazepam (Ativan) 0.5 MG tablet TAKE 1 TABLET BY MOUTH TWICE A DAY NEEDED IN THE MORNING AND ATBEDTIME FOR ANXIETY Do not start before September 05, 2024. 14 tablet 0 Misc. Devices (Pulse Oximeter Deluxe) misc use daily mometasone (Elocon) 0.1 % ointment Apply twice daily x 2 weeks 15 g 0 naloxone (Narcan) 4 mg/0.1 mL nasal spray Administer 1 spray (4 mg) into affected nostril(s) if needed for opioid reversal. 2 each 2 ondansetron (Zofran) 4 MG tablet Take 1 tablet by mouth in the morning and 1 tablet at noon and 1 tablet in the evening and 1 tablet before bedtime. oxyCODONE (Roxicodone) 10 MG immediate release tablet Take 1 tablet (10 mg) by mouth every 6 (six) hours if needed for severe pain for up to 28 days. Do not start before September 13, 2024. 112 tablet 0 Spacer/Aero-Holding Chambers (AeroChamber Mini Chamber) device use as directed triamcinolone (Kenalog) 0.1 % cream Apply topically if needed in the morning and at bedtime (pain and swelling). 30 g 2 zolpidem (Ambien) 10 MG tablet TAKE 1 TABLET BY MOUTH EVERYDAY AT BEDTIME 28 tablet 0 [DISCONTINUED] Acetaminophen Extra Strength 500 MG tablet TAKE 1 TABLET BY MOUTH EVERY 8 HOURS NEEDED FOR MILD PAIN 90 tablet 1 No facility-administered encounter medications on file as of 09/20/2024. Subjective: Pain: constant Duration: > 5 days Objective: Tooth: #18 and #20 Radiographs Taken: No Radiographic Findings: Decay, Fractured/Broken Tooth, Root Tip, and Dental abscess Clinical Findings: Mild Inflammation intra and extraoral Swelling: Extraoral swelling, Tenderness, and Intraoral swelling Endo Testing: N/A Perio: N/A Other Findings: Pt wants procedure under general anesthesia Diagnosis: Dental abscess Assessment/Plan: EOE Referral to [facility] Return for impressions after healed Prescriptions: Sent to [facility] on file Pt tolerated procedure well, all questions answered. Dismissed in good condition. NV: MATILDA Certified Genetic Counselor: Maliha Quintero Dentist: Pawel Pate DDS documented in this encounter Plan of Treatment Upcoming Encounters Date Type Department Care Team (Late st Contact Info) Description 11/08/2024 2:15 PM EDT Office Visit [facility] [address] [place] [phone] Laney Kirkpatrick MD [address] [place] [phone] 11/10/2024 1:30 PM EDT Office Visit [facility] [address] [place] [phone] Danis Yanez MD [address] [place] [address] 11/23/2024 10:00 AM EDT Office Visit [facility] OPTOM[facility]RY [address] [place] [phone] Ashley Espinal OD [address] [place] [address] 01/08/2025 1:00 PM EDT Clinical Support [facility] [address] [place] [phone] Marysol Tovar RN Scheduled Orders Name Type Priority Associated Diagnoses Orde r Schedule 2 2 EXTRACTION, ERUPTED TOOTH OR EXPOSED ROOT (ELEVATION AND/OR FORCEPS REMOVAL) Dental Routine 1 Occurrences s tarting 09/20/2024 3 3 EXTRACTION, ERUPTED TOOTH OR EXPOSED ROOT (ELEVATION AND/OR FORCEPS REMOVAL) Dental Routine 1 Occurrences s tarting 09/20/2024 4 4 EXTRACTION, ERUPTED TOOTH OR EXPOSED ROOT (ELEVATION AND/OR FORCEPS REMOVAL) Dental Routine 1 Occurrences s tarting 09/20/2024 5 5 EXTRACTION, ERUPTED TOOTH OR EXPOSED ROOT (ELEVATION AND/OR FORCEPS REMOVAL) Dental Routine 1 Occurrences s tarting 09/20/2024 8 8 EXTRACTION, ERUPTED TOOTH OR EXPOSED ROOT (ELEVATION AND/OR FORCEPS REMOVAL) Dental Routine 1 Occurrences s tarting 09/20/2024 9 9 EXTRACTION, ERUPTED TOOTH OR EXPOSED ROOT (ELEVATION AND/OR FORCEPS REMOVAL) Dental Routine 1 Occurrences s tarting 09/20/2024 29 29 EXTRACTION, ERUPTED TOOTH OR EXPOSED ROOT (ELEVATION AND/OR FORCEPS REMOVAL) Dental Routine 1 Occurrences s tarting 09/20/2024 28 28 EXTRACTION, ERUPTED TOOTH OR EXPOSED ROOT (ELEVATION AND/OR FORCEPS REMOVAL) Dental Routine 1 Occurrences s tarting 09/20/2024 13 13 EXTRACTION, ERUPTED TOOTH OR EXPOSED ROOT (ELEVATION AND/OR FORCEPS REMOVAL) Dental Routine 1 Occurrences s tarting 09/20/2024 14 14 EXTRACTION, ERUPTED TOOTH OR EXPOSED ROOT (ELEVATION AND/OR FORCEPS REMOVAL) Dental Routine 1 Occurrences s tarting 09/20/2024 15 15 EXTRACTION, ERUPTED TOOTH OR EXPOSED ROOT (ELEVATION AND/OR FORCEPS REMOVAL) Dental Routine 1 Occurrences s tarting 09/20/2024 18 18 EXTRACTION, ERUPTED TOOTH OR EXPOSED ROOT (ELEVATION AND/OR FORCEPS REMOVAL) Dental Routine 1 Occurrences s tarting 09/20/2024 20 20 EXTRACTION, ERUPTED TOOTH OR EXPOSED ROOT (ELEVATION AND/OR FORCEPS REMOVAL) Dental Routine 1 Occurrences s tarting 09/20/2024 21 21 EXTRACTION, ERUPTED TOOTH OR EXPOSED ROOT (ELEVATION AND/OR FORCEPS REMOVAL) Dental Routine 1 Occurrences s tarting 09/20/2024 22 22 EXTRACTION, ERUPTED TOOTH OR EXPOSED ROOT (ELEVATION AND/OR FORCEPS REMOVAL) Dental Routine 1 Occurrences s tarting 09/20/2024 23 23 EXTRACTION, ERUPTED TOOTH OR EXPOSED ROOT (ELEVATION AND/OR FORCEPS REMOVAL) Dental Routine 1 Occurrences s tarting 09/20/2024 24 24 EXTRACTION, ERUPTED TOOTH OR EXPOSED ROOT (ELEVATION AND/OR FORCEPS REMOVAL) Dental Routine 1 Occurrences s tarting 09/20/2024 25 25 EXTRACTION, ERUPTED TOOTH OR EXPOSED ROOT (ELEVATION AND/OR FORCEPS REMOVAL) Dental Routine 1 Occurrences s tarting 09/20/2024 26 26 EXTRACTION, ERUPTED TOOTH OR EXPOSED ROOT (ELEVATION AND/OR FORCEPS REMOVAL) Dental Routine 1 Occurrences s tarting 09/20/2024 27 27 EXTRACTION, ERUPTED TOOTH OR EXPOSED ROOT (ELEVATION AND/OR FORCEPS REMOVAL) Dental Routine 1 Occurrences s tarting 09/20/2024 documented as of this encounter Procedures Procedure Name Priority Date/Time Associated Diagnosis Comments LIMITED ORAL EVALUATION - PROBLEM FOCUSED Routine 09/20/2024 1:30 PM EST CASE PRESENTATION, DETAILED AND EXTENSIVE TREATMENT PLANNING Routine 09/20/2024 1:30 PM EST documented in this encounter Visit Diagnoses Diagnosis Chronic periodontitis- Primary Chronic periodontitis, unspecified Dental abscess Periapical abscess without sinus Retained dental root documented in this encounter Additional Health Concerns Assessment Noted Time PHQ-9 Depression Total Score: 7 11/10/19 23 3:56 PM EDT documented as of this encounter Care Teams Hair Worker Relationship Specialty Start Date End Date Laney Kirkpatrick MD [address] [place] [phone] PCP - General Family Medicine 11/25/17 documented as of this encounter
--- OUTSIDE RECORDS SUMMARY | 2024-10-18 15:44 | XMS_ITS | Encounter Summary ---
Author Organization [employer] Address [address] [facility] 7t [place] [address] Care Team Providers Care Quality Assurance Calibrator Name Role Phone Laney Kirkpatrick MD Primary Care Provider + Reason for Visit * Reason Onset Date Comments Med Refill 09/06/2024 Encounter Details Date Type Department Care Team ([facility] Contact Info) Description 09/06/2024 Telephone [facility] [address] [place], [place] [phone] Laney Kirkpatrick MD [address] [place], [place] [phone] Med Refill Social History Tobacco Use Types Packs/Day Years Used Date Smoking Tobacco: Never Passive Smoke Exposure: Never Smokeless Tobacco: Never Alcohol Use Standard Drinks/Week Comments Never 0 (1 standard drink = 0.6 oz pur e alcohol) Depression Answer Date Recorded Patient Health Questionnaire-9 Score 7 11/09/2022 Housing Stability Answer Date Recorded What is your housing situation today? I have dionicio pennington 09/04/[address] you li [...] AM EDT documented as of this encounter Miscellaneous Notes * Telephone Encounter - Shadia Perodmo LPN - 09/06/2024 9:36 AM EST Medication should have 2 refills left. * Telephone Encounter - Reny Olvera - 09/06/2024 9:31 AM EST TC from pt requesting medication refill. Medications needing refill : naloxone (Narcan) 4 mg/0.1 mL nasal spray To be sent to: [facility]/pharmacy #[id number] [place] [address] documented in this encounter Plan of Treatment Upcoming Encounters Date Type Department Care Team (Late st Contact Info) Description 11/08/2024 2:15 PM EDT Office Visit [facility] [address] [place] [address] [phone] Laney Kirkpatrick MD [address] [place], [place] [phone] 11/10/2024 1:30 PM EDT Office Visit [facility] [address] [place] [address] [phone] Danis Yanez MD [address] [place], [place] [phone] 11/23/2024 10:00 AM EDT Office Visit [facility] OPTOMETRY [address] [place] [address] Ashley Espinal, OD [address] [place] [address] 01/08/2025 1:00 PM EDT Clinical Support [facility] [address] [place] [address] Marysol Tovar, HAWK documented as of this encounter Visit Diagnoses Diagnosis Cervical radiculopathy due to degenerative joint disease of spine documented in this encounter Additional Health Concerns Assessment Noted Time PHQ-9 Depression Total Score: 7 11/10/19 23 3:56 PM EDT documented as of this encounter Care Teams Quality Assurance Calibrator Relationship Specialty Start Date End Date Laney Kirkpatrick MD [address] [place] [address] PCP - General Family Medicine 11/25/17 documented as of this encounter
--- OUTSIDE RECORDS SUMMARY | 2024-10-18 15:44 | XMS_ITS | Encounter Summary ---
Author Organization [email or web address] Address [address] [place] [address] 7t [place] [address] Care Team Providers Care National Dedicated Truck Driver Name Role Phone Laney Kirkpatrick MD Primary Care Provider + Encounter Details Date Type Department Care Team ([facility] Contact Info) Description 03/12/2023 Orders Only [facility] MED[facility] [address] [place] [address] [phone] Laney Kirkpatrick MD [address] [place] [address] [phone] Social History Tobacco Use Types Packs/Day Years Used Date Smoking Tobacco: Never Passive Smoke Exposure: Never Smokeless Tobacco: Never Alcohol Use Standard Drinks/Week Comments Never 0 (1 standard drink = 0.6 oz pur e alcohol) Depression Answer Date Recorded Patient Health Questionnaire-9 Score 7 11/09/2022 Depression Answer Date Recorded Patient Health Questionnaire-2 Score 3 11/09/2022 Comments Unknown Sex and Gender Information Value Date Recorded Sex Assigned at Female 06/08/2022 10:15 AM EDT Legal Sex Female 10:15 AM EDT Gender Identity Female 06/08/2022 10:15 AM EDT Sexual Orientation Straight 06/08/2022 10 :15 AM EDT documented as of this encounter Plan of Treatment Upcoming Encounters Date Type Department Care Team ([facility] Contact Info) Description 11/08/2024 2:15 PM EDT Office Visit [facility] [address] [place] [address] [phone] Laney Kirkpatrick MD [address] [place] [address] [phone] 11/10/2024 1:30 PM EDT Office Visit [facility] [address] [place] [address] Danis Yanez MD [address] [place] [address] 11/23/2024 10:00 AM EDT Office Visit [facility] OPT[facility] [address] [place] [address] Ashley Espinal, OD [address] [place] [address] 01/08/2025 1:00 PM EDT Clinical Support [facility] [address] [place] [address] Marysol Tovar, HAWK documented as of this encounter Visit Diagnoses Not on filedocumented in this encounter Additional Health Concerns Assessment Noted Time PHQ-9 Depression Total Score: 7 11/10/19 23 3:56 PM EDT documented as of this encounter Care Teams National Dedicated Truck Driver Relationship Specialty Start Date End Date Laney Kirkpatrick MD [address] [place] [address] [phone] PCP - General Family Medicine 11/25/17 documented as of this encounter
--- OUTSIDE RECORDS SUMMARY | 2024-10-18 15:44 | XMS_ITS | Encounter Summary ---
Author Organization [facility] Address [address] [facility] 7t [place] [address] Care Team Providers Care Line Ordering Clinician Name Role Phone Laney Kirkpatrick MD Primary Care Provider + Encounter Details Date Type Department Care Team ([facility] Contact Info) Description 12/18/2022 Orders Only [facility] MED[facility] [address] [place] [phone] Laney Kirkpatrick MD [address] [place] [phone] Social History Tobacco Use Types Packs/Day Years [...] Orientation Straight 06/08/2022 10 :15 AM EDT COVID-19 Exposure Response Date Recorded In the last 10 days, have yo u been in contact with someone who was confirmed or suspected to have Coronavirus/COVID-19? No / Unsure 12/16/2022 2:00 PM EDT documented as of this encounter Plan of Treatment Upcoming Encounters Date Type Department Care Team ([facility] Contact Info) Description 11/08/2024 2:15 PM EDT Office Visit [facility] [address] [place] [phone] Laney Kirkpatrick MD [address] [place] [address] 11/10/2024 1:30 PM EDT Office Visit [facility] [address] [place] [address] Danis Yanez MD [address] [place] [address] 11/23/2024 10:00 AM EDT Office Visit [facility] OPTOMETRY [address] [place] [address] Ashley Espinal OD [address] [place] [address] 01/08/2025 1:00 PM EDT Clinical Support [facility] [address] [place] [phone] Marysol Tovar, RN documented as of this encounter Visit Diagnoses Not on filedocumented in this encounter Additional Health Concerns Assessment Noted Time PHQ-9 Depression Total Score: 7 11/10/19 23 3:56 PM EDT documented as of this encounter Care Teams Line Ordering Clinician Relationship Specialty Start Date End Date Laney Kirkpatrick MD [address] [place] [phone] PCP - General Family Medicine 11/25/17 documented as of this encounter
--- OUTSIDE RECORDS SUMMARY | 2024-10-18 15:44 | XMS_ITS | Encounter Summary ---
Author Organization [employer] Address [address] [facility] 7t [place] [address] Care Team Providers Care Water Quality Control Engineer Name Role Phone Laney Kirkpatrick MD Primary Care Provider + Reason for Visit * Reason Onset Date Comments Med Refill 01/14/2023 Encounter Details Date Type Department Care Team ([facility] Contact Info) Description 01/14/2023 Telephone [facility] [address] [place], [place] [phone] Laney Kirkpatrick MD [address] [place] [address] Med Refill Social History Tobacco Use Types [...] PM EDT documented as of this encounter Miscellaneous Notes * Telephone Encounter - Melissa Moya - 01/14/2023 10:07 AM EDT Tc from pt requesting med refill for medication oxyCODONE (Roxicodone) 10 MG immediate release tablet. documented in this encounter Plan of Treatment Upcoming Encounters Date Type Department Care Team (Late st Contact Info) Description 11/08/2024 2:15 PM EDT Office Visit [facility] [address] [place] [address] Laney Kirkpatrick MD [address] [place] [address] 11/10/2024 1:30 PM EDT Office Visit [facility] [address] [place] [address] Danis Yanez MD [address] [place] [address] 11/23/2024 10:00 AM EDT Office Visit [facility] OPTOMETRY [address] [place] [address] Ashley Espinal, OD [address] [place] [address] 01/08/2025 1:00 PM EDT Clinical Support [facility] [address] [place] [address] Marysol Tovar, RN documented as of this encounter Visit Diagnoses Not on filedocumented in this encounter Additional Health Concerns Assessment Noted Time PHQ-9 Depression Total Score: 7 11/10/19 23 3:56 PM EDT documented as of this encounter Care Teams Water Quality Control Engineer Relationship Specialty Start Date End Date Laney Kirkpatrick MD [address] [place] [address] PCP - General Family Medicine 11/25/17 documented as of this encounter
--- OUTSIDE RECORDS SUMMARY | 2024-10-18 15:44 | XMS_ITS | Encounter Summary ---
Author Organization [employer] [facility] Address [address] [place] [address] 7 [place] [address] Care Team Providers Care Tuckpointer Cleaner Caulker Name Role Phone Laney Kirkpatrick MD Primary Care Provider + Reason for Visit * Reason Comments Med Refill Encounter Details Date Type Department Care Team ([facility] Contact Info) Description 03/11/[address] [facility] [address] [place] [address] [phone] Laney Kirkpatrick MD [address] [place] [address] [phone] Anxiety state Social History Tobacco Use Types Packs/Day Years [...] Upcoming Encounters Date Type Department Care Team ([facility] Contact Info) Description 11/08/2024 2:15 PM EDT Office Visit [facility] [address] [place] [phone] Laney Kirkpatrick MD [address] [place] [address] [phone] 11/10/2024 1:30 PM EDT Office Visit [facility] [address] [place] [address] Danis Yanez MD [address] [place], [place] 11/23/2024 10:00 AM EDT Office Visit [facility] OPTOMETRY [address] [place], [place] [phone] Ashley Espinal, OD [address] [place] [address] 01/08/2025 1:00 PM EDT Clinical Support [facility] [address] [place] [phone] Marysol Tovar, HAWK documented as of this encounter Visit Diagnoses Diagnosis Anxiety state Anxiety state, unspecified documented in this encounter Additional Health Concerns Assessment Noted Time PHQ-9 Depression Total Score: 7 11/10/19 23 3:56 PM EDT documented as of this encounter Care Teams Tuckpointer Cleaner Caulker Relationship Specialty Start Date End Date Laney Kirkpatrick MD [address] [place] [address] [phone] PCP - General Family Medicine 11/25/17 documented as of this encounter
--- OUTSIDE RECORDS SUMMARY | 2024-10-18 15:44 | XMS_ITS | Encounter Summary ---
Author Organization [employer] [facility] Address [address] [place] [address] [address]t [place] [address] Care Team Providers Care Recharger Name Role Phone Laney Kirkpatrick MD Primary Care Provider + Reason for Visit * Reason Comments Med Refill Encounter Details Date Type Department Care Team ([facility] Contact Info) Description 03/12/[address] [facility] MED[facility]INE [address] [place] [address] [phone] Laney Kirkpatrick MD [address] [place], [place] [phone] Cervical radiculopathy due to degenerative joint disease of spine; Anxiety state Social History Tobacco Use Types [...] Upcoming Encounters Date Type Department Care Team ([facility] Contact Info) Description 11/08/2024 2:15 PM EDT Office Visit [facility] MED[facility]INE [address] [place] [address] [phone] Laney Kirkpatrick MD [address] [place] [address] 11/10/2024 1:30 PM EDT Office Visit [facility] [address] [place] [address] Danis Yanez MD [address] [place] [address] 11/23/2024 10:00 AM EDT Office Visit [facility] OPTOMETRY [address] [place] [address] Ashley Espinal, OD [address] [place] [address] 01/08/2025 1:00 PM EDT Clinical Support [facility]INE [address] [place] [address] Marysol Tovar RN documented as of this encounter Visit Diagnoses Diagnosis Cervical radiculopathy due to degenerative joint disease of spine Anxiety state Anxiety state, unspecified documented in this encounter Additional Health Concerns Assessment Noted Time PHQ-9 Depression Total Score: 7 11/10/19 23 3:56 PM EDT documented as of this encounter Care Teams Recharger Relationship Specialty Start Date End Date Laney Kirkpatrick MD [address] [place] [phone] PCP - General Family Medicine 11/25/17 documented as of this encounter
--- OUTSIDE RECORDS SUMMARY | 2024-10-18 15:44 | XMS_ITS | Encounter Summary ---
Author Organization [employer] [facility] Address [address] [place] [address] 7t [place] [address] Care Team Providers Care Workers Compensation Adjuster Name Role Phone Laney Kirkpatrick MD Primary Care Provider + Reason for Visit * Reason Comments Med Refill Encounter Details Date Type Department Care Team ([facility] Contact Info) Description 03/02/2023 Refill [facility] [address] [place] [address] [phone] Adrienne Hernandez MD [address] [place] [address] [phone] Anxiety state Social History Tobacco Use Types [...] Upcoming Encounters Date Type Department Care Team ([facility] Contact Info) Description 11/08/2024 2:15 PM EDT Office Visit [facility] [address] [place] [address] [phone] Laney Kirkpatrick MD [address] [place], [place] [phone] 11/10/2024 1:30 PM EDT Office Visit [facility] [address] [place] [address] Danis Yanez MD [address] [place] [address] 11/23/2024 10:00 AM EDT Office Visit [facility] OPTOMETRY [address] [place] [address] Ashley Espinal, OD [address] [place] [address] 01/08/2025 1:00 PM EDT Clinical Support [facility] [address] [place] [address] Marysol Tovar, HAWK documented as of this encounter Visit Diagnoses Diagnosis Anxiety state Anxiety state, unspecified documented in this encounter Additional Health Concerns Assessment Noted Time PHQ-9 Depression Total Score: 7 11/10/19 23 3:56 PM EDT documented as of this encounter Care Teams Workers Compensation Adjuster Relationship Specialty Start Date End Date Laney Kirkpatrick MD [address] [place] [id number] PCP - General Family Medicine 11/25/17 documented as of this encounter
--- OUTSIDE RECORDS SUMMARY | 2024-10-18 15:44 | XMS_ITS | Encounter Summary ---
Author Organization [employer] Address [address] [place] [address] Care Team Providers Care [employer] Developer Name Role Phone Laney Kirkpatrick MD Primary Care Provider + Reason for Visit * Reason Onset Date Comments Med Refill 08/07/2024 Encounter Details Date Type Department Care Team ([facility] Contact Info) Description 08/07/2024 Telephone [facility] [address] [place], [place] [phone] Laney Kirkpatrick MD [address] [place] [address] Med Refill Social History Tobacco Use Types Packs/Day Years Used Date Smoking Tobacco: Never Passive Smoke Exposure: Never Smokeless Tobacco: Never Alcohol Use Standard Drinks/Week Comments Never 0 (1 standard drink = 0.6 oz pur e alcohol) Depression Answer Date Recorded Patient Health Questionnaire-9 Score 7 11/09/2022 Housing Stability Answer Date Recorded What is your housing situation today? I have dionic[place] 05/27/[address] you li ve. Do you have problems with any of the following? None of the above 05/27/2023 Food Insecurity Answer Date Recorded Within the past 12 months, y ou worried that your food would run out before you got money to buy more: Never True 05/27/2023 Within the past 12 months,th e food you bought just didn't last and you didn't have enough money to get more: Never True Transportation Answer Date Recorded In the past 12 months, has l ack of transportation kept you from medical appts, meetings, work or from getting things needed for daily living? No 05/27/2023 Utilities Answer Date Recorded In the past 12 months, has t he electric, gas, oil or water company threatened to shut off services in your home? No 05/27/2023 Depression Answer Date Recorded Patient Health Questionnaire-2 Score 3 11/09/2022 Comments No Sex and Gender Information Value Date Recorded Sex Assigned at Female 06/08/2022 10:15 AM EDT Legal Sex Female 10:15 AM EDT Gender Identity Female 06/08/2022 10:15 AM EDT Sexual Orientation Straight 06/08/2022 10 :15 AM EDT documented as of this encounter Miscellaneous Notes * Telephone Encounter - Shadia Perdomo LPN - 08/07/2024 2:44 PM EST Medication pended to PCP. * Telephone Encounter - Viridiana Ambrose - 08/07/2024 2:30 PM EST TC from pt requesting medication refill. Medications needing refill : cyclobenzaprine (Flexeril) 10 MG tablet To be sent to: [facility]/pharmacy #[id number] [place] [address] - [address] [place] [address] documented in this encounter Plan of Treatment Upcoming Encounters Date Type Department Care Team (Late st Contact Info) Description 11/08/2024 2:15 PM EDT Office Visit [facility] [address] [place] [address] Laney Kirkpatrick MD [address] [place] [address] 11/10/2024 1:30 PM EDT Office Visit [facility] [address] [place] [address] Danis Yanez MD [address] [place] [address] 11/23/2024 10:00 AM EDT Office Visit [facility] OPTOMETRY [address] [place] [phone] Ashley Espinal, OD [address] [place] [address] 01/08/2025 1:00 PM EDT Clinical Support [facility] [address] [place] [address] Marysol Tovar RN documented as of this encounter Visit Diagnoses Not on filedocumented in this encounter Additional Health Concerns Assessment Noted Time PHQ-9 Depression Total Score: 7 11/10/19 23 3:56 PM EDT documented as of this encounter Care Teams [employer] Developer Relationship Specialty Start Date End Date Laney Kirkpatrick MD [address] [place] [address] PCP - General Family Medicine 11/25/17 documented as of this encounter
--- OUTSIDE RECORDS SUMMARY | 2024-10-18 15:45 | XMS_ITS | Clinical Summary ---
Author Organization [employer] Address [address] [place] [address] Care Team Providers Care Insurance Manager Name Role Phone Laney Kirkpatrick MD Primary Care Provider + Allergies Active Allergy Reactions Criticality Noted Date Comments Morphine Rash Low 05/02/2013 Other reaction(s): vomiting Medications Misc. Devices (Pulse Oximeter Deluxe) misc use daily 04/29/20 20 Active Spacer/Aero-Hold ing Chambers (AeroChamber Mini Chamber) device use as directed 04/29/20 20 Active ondansetron (Zofran) 4 MG tablet Take 1 tablet by mouth in the morning and 1 tablet at noon and 1 tablet in the evening and 1 tablet before bedtime. 04/19/20 18 Active Blood Pressure Monitor kitIndications:B lood pressure elevated without history of HTN Use as directed 3x/week 1 kit 11/10/19 23 Active Diclofenac Sodium 1 % gelIndications:P ain APPLY 2 GRAMS TO AFFECTED AREA 3 TIMES A DAY 100 g 03/21/20 24 Active chlorhexidine (Peridex) 0.12 % solution SWISH 15 ML MORNING AND NIGHT FOR 1 MINUTE. SPIT, DO NOT SWALLOW. DO NOT EAT OR DRINK FOR 30 MINUTES FOLLOWING USE. 473 mL 03/20/20 24 Active triamcinolone (Kenalog) 0.1 % cream Apply topically if needed in the morning and at bedtime (pain and swelling). 30 g 2 04/13/20 24 Active mometasone (Elocon) 0.1 % ointmentIndicati ons:Hand dermatitis Apply twice daily x 2 weeks 15 g 05/05/20 24 Active DULoxetine (Cymbalta) [address] capsuleIndicatio ns:Panic disorder without agoraphobia TAKE 1 CAPSULE BY MOUTH EVERY DAY. DO NOT CRUSH OR CHEW. 30 capsule 2 06/14/20 24 Active naloxone (Narcan) 4 mg/0.1 mL nasal sprayIndications :Cervical radiculopathy due to degenerative joint disease of spine Administer 1 spray (4 mg) into affected nostril(s) if needed for opioid reversal. 2 each 2 06/14/20 24 Active diphenhydrAMINE (BENADryl) 25 MG capsule TAKE 1 TO 2 CAPSULES BY MOUTH EVERY 4 TO 6 HOURS NEEDED 30 capsule 09/04/19 25 Active LORazepam (Ativan) 0.5 MG tabletIndication s:Anxiety state TAKE 1 TABLET BY MOUTH TWICE A DAY NEEDED IN THE MORNING AND AT BEDTIME FOR ANXIETY Do not start before September 05, 2024. 14 tablet 09/05/19 25 Active acetaminophen (Tylenol) 500 MG tabletIndication s:Chronic periodontitis,De ntal abscess,Retained dental root Take 1 tablet (500 mg) by mouth every 6 (six) hours if needed for mild pain for up to 20 doses. 20 tablet 09/20/19 25 Active ibuprofen 600 MG tabletIndication s:Chronic periodontitis,De ntal abscess,Retained dental root Take 1 tablet (600 mg) by mouth every 6 (six) hours if needed for mild pain for up to 20 doses. 20 tablet 09/20/19 25 Active loratadine (Claritin) 10 MG tabletIndication s:Chronic rhinitis Take 1 tablet (10 mg) by mouth in the morning. 90 tablet 1 09/21/19 25 Active zolpidem (Ambien) 10 MG tabletIndication s:Other insomnia TAKE 1 TABLET BY MOUTH EVERYDAY AT BEDTIME 28 tablet 10/06/19 25 Active oxyCODONE (Roxicodone) 10 MG immediate release tabletIndication s:Cervical radiculopathy due to degenerative joint disease of spine Take 1 tablet (10 mg) by mouth every 6 (six) hours if needed for severe pain for up to 28 days. Do not start before October 11, 2024. 112 tablet 10/12/19 25 2024 Active cyclobenzaprine (Flexeril) 10 MG tabletIndication s:Left arm pain,Right hip pain TAKE 1 TABLET BY MOUTH TWICE A DAY IF NEEDED FOR MUSCLE SPASMS 60 tablet 10/11/19 25 Active Acetaminophen Extra Strength 500 MG tabletIndication s:Lumbar disc disease with radiculopathy TAKE 1 TABLET BY MOUTH EVERY 8 HOURS NEEDED FOR MILD PAIN 90 tablet 1 06/14/20 24 2024 Discontinued loratadine (Claritin) 10 MG tabletIndication s:Chronic rhinitis TAKE 1 TABLET BY MOUTH EVERY DAY IN THE MORNING 90 tablet 1 07/04/20 24 2024 Discontinued(R eorder (will not trigger notification to Pharmacy)) zolpidem (Ambien) 10 MG tabletIndication s:Other insomnia TAKE 1 TABLET BY MOUTH EVERYDAY AT BEDTIME 28 tablet 09/04/19 25 2024 Discontinued(R eorder (will not trigger notification to Pharmacy)) cyclobenzaprine (Flexeril) 10 MG tabletIndication s:Left arm pain,Right hip pain TAKE 1 TABLET BY MOUTH TWICE A DAY IF NEEDED FOR MUSCLE SPASMS 60 tablet 09/04/19 25 2024 Discontinued oxyCODONE (Roxicodone) 10 MG immediate release tabletIndication s:Cervical radiculopathy due to degenerative joint disease of spine Take 1 tablet (10 mg) by mouth every 6 (six) hours if needed for severe pain for up to 28 days. Do not start before September 13, 2024. 112 tablet 09/13/19 25 2024 Discontinued(R eorder (will not trigger notification to Pharmacy)) amoxicillin (Amoxil) 500 MG capsuleIndicatio ns:Chronic periodontitis,De ntal abscess,Retained dental root Take 1 capsule (500 mg) by mouth every 8 (eight) hours for 7 days. 21 capsule 09/20/19 25 2024 Active Problems Problem Noted Date Diagnosed Date Chronic periodontitis 09/20/2024 Dental abscess 09/20/2024 Hand dermatitis 05/18/2024 Assessment & Plan (05/18/2024 9:42 AM EDT): Reports rash x1 month. Has been seen twice for this rash on right palmar hand. Treated with Mometasone and Triamcinolone with reoccurrence. -ordered labs and sent culture 05/18/24 -referred to Dermatology 05/18/24 Flexural eczema 04/13/2024 Assessment & Plan (04/13/2024 2:04 PM EDT): On right hand. Use Triamcinolone BID. Retained dental root 03/16/2024 Open fracture of tooth 03/16/2024 Periodontal disease 03/16/2024 Severe dental caries 03/16/2024 Fall (on)(from) sidewalk curb, initial encounter 08/16/2023 Decreased vision in both eyes 03/24/2023 Screening for colorectal cancer 03/23/2023 Assessment & Plan (04/13/2024 2:05 PM EDT): Pt declined to be referred to Colonoscopy, agreed to Cologuard. Drug-induced constipation 03/23/2023 Other insomnia 03/23/2023 Pure hypercholesterolemia 11/09/2022 Assessment & Plan (11/09/2022 4:33 PM EDT): We discussed re rx options. She wants to be more strict with life style modifications. Recommended moderate amount of exercise and increased consumption of fruit, vegetables, fish and high fiber foods. We discussed about avoiding consumption of highly saturated fats or trans fats. Repeat lipids in 6 months Blood pressure elevated without history of HTN 0 11/09/2022 Assessment & Plan (11/09/2022 4:32 PM EDT): Check BP at home TIW and FU with me in 4 weeks. Counseled re low salt diet/increase moderate physical activity. Check home BP BIW and prn CP/WISE/SYKES Non smoking patient. Calcaneal spur of foot, right 09/23/2022 Assessment & Plan (09/23/2022 11:59 AM EST): They seem to be asymptomatic at this time. Will FU at this time. Overweight (BMI 25.0-29.9) 09/23/2022 Assessment & Plan (09/23/2022 11:57 AM EST): Order labs. Acute pain 07/09/2022 Arthritis of knee 07/09/2022 Fall 07/09/2022 Assessment & Plan (09/23/2022 11:58 AM EST): Most likely related to OA of spine and knees. R/O neuropathy, ordered NCS. Discussed with her regarding sedation properties of narcotics. Pt has DME suplies at home to prevent falls, including shower chair and hand rails in the bathroom. Grief 07/09/2022 Pneumonia of both lungs due to infectious organi sm 07/09/2022 Primary osteoarthritis of right hip 07/09/2022 Primary osteoarthritis of right shoulder 022 Tendinitis of left rotator cuff 07/09/2022 Visual impairment 07/09/2022 Allergic reaction 07/09/2022 Encounter for other screenin g for malignant neoplasm of breast 07/09/2022 Arachnoid cyst 09/09/2018 Cervical spondylosis without myelopathy 09/09/19 19 Spinal stenosis of lumbar region 02/11/2018 Assessment & Plan (11/09/2022 4:36 PM EDT): lumbar radiculopathy and claudication refer to pain clinic continue oxycodone and start duloxetine IFG (impaired fasting glucose) 12/08/2017 Assessment & Plan (11/09/2022 4:34 PM EDT): A1C is at goal. I have discussed with patient regarding increasing physicial activity and decrease calorie intake I'll check FBS with next set of labs. To check RBS at next visit. FU in 6 months Vitamin D deficiency 12/08/2017 Assessment & Plan (04/13/2024 2:03 PM EDT): Completed Vitamin D supplementation last year, recheck Vitamin D. Assessment & Plan (11/09/2022 4:37 PM EDT): Start vit D supplementation and FU levels in 6 months Lumbar disc disease with radiculopathy 8 Assessment & Plan (04/13/2024 2:03 PM EDT): Refer again to [facility] pain clinic. Continue Oxycodone 10 mg Q 6 hrs prn pain, advised to increase dose. We have done [employer] education re opiate side effects including dizziness, somnolence, constipation, urinary retention, dependance, etc. Patient is aware of the importance of avoiding any activity that requires vigilance while taking these meds including driving. We have discussed re avoiding diversion of medication, including giving pills to relatives. Patient is to keep medications in a safe place and is aware that rx will not be replaced if lost or stolen. Follow up with [employer] nurse, she is do for Oxycodone refill next week. 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 triggered by recent falls Order Xrays Take tylenol _+ flexeril, declined PT now, can reconsult prn and I will refer to PT FU in 3m Assessment & Plan (09/23/2022 11:57 AM EST): Pt has known disc disease of the spine. R/o neuropathy, order NCS. We have done [employer] education re opiate side effects including dizziness, somnolence, constipation, urinary retention, dependance, etc. Patient is aware of the importance of avoiding any activity that requires vigilance while taking these meds including driving. We have discussed re avoiding diversion of medication, including giving pills to relatives. Patient is to keep medications in a safe place and is aware that rx will not be replaced if lost or stolen. Depressive disorder 03/02/2012 Panic disorder without agoraphobia 03/02/2012 Assessment & Plan (06/14/2024 1:01 PM EST): Better controlled, pretty stable. Continue Duloxetine and lorazepam same dose. We discuss re side effects of lorazepam including sedation, altered MS (shouldn't drive or perform activities that require vigilance), respiratory depression etc. She feels safe at home and is able to reach out for safety FU in 6m Assessment & Plan (04/13/2024 2:05 PM EDT): Very controlled, however she continues to use Lorazepam daily, likely related to dependency. Discuss with Pt the importance of starting Duloxetine daily, follow up with me in 2 months. Assessment & Plan (11/09/2022 4:35 PM EDT): Exacerbated by not having lorazepam recently. I called pharmacy and they have it ready for her. No need for a new prescription Start duloxetine which will also help with pain and FU in 4 weeks. Hip pain 12/23/2011 Assessment & Plan (11/25/2023 10:18 AM EDT): It could be related to L-spine disease above vs hip OA or bursitis. Use tylenol tid x 5d then prn Take flexeril at bedtime x 5d then prn Order Xray and fu in 4-6w, she can call back prn if she wants to be referred to PT, declined at this time. Disorder of skeletal muscle 12/23/2011 Posttraumatic stress disorder 12/23/2011 Thoracic and lumbosacral neuritis 12/23/2011 Resolved Problems Problem Noted Date Diagnosed Date Resolved Date Lumbosacral radiculopathy 07/09/2022 Backache 07/09/2022 07/09/2022 Anxiety state 12/23/2011 04/13/2024 Assessment & Plan (09/23/2022 11:59 AM EST): Pt seems to be management well with family support, routines at home. She is able to reach out for safety and has crisis numbers Use lorazepam daily. Encounters Date Type Department Care Team Description 10/10/2024 Refill [facility] [address] [place] [address] Laney Kirkpatrick MD Left arm pain; Right hip pain 10/06/2024 Refill [facility] [address] [place] [address] Laney Kirkpatrick MD Other insomnia 10/06/2024 Refill [facility] [address], [place] [phone] Laney Kirkpatrick MD Cervical radiculopathy due to degenerative joint disease of spine 09/21/2024 9:30 AM EST Clinical Support [facility] [address] [facility] [place] [address] Marysol Tovar RN Chronic low back pain with sciatica, sciatica laterality unspecified, unspecified back pain laterality (Primary Dx) 09/21/2024 Refill [facility] [address] [place] [address] Marysol Tovar RN Chronic rhinitis 09/21/2024 Travel 09/20/2024 1:30 PM EST Office Visit [facility] [address] [place] [address] Pawel Pate DDS Chronic periodontitis (Primary Dx); Dental abscess; Retained dental root 09/15/2024 Telephone [facility] [address] [place] [address] Laney Kirkpatrick MD No Show 09/11/2024 Refill [facility] [address] [place] [phone] Laney Kirkpatrick MD Cervical radiculopathy due to degenerative joint disease of spine 09/06/2024 Telephone [facility] [address] [place] [phone] Laney Kirkpatrick MD Med Refill 09/04/2024 Refill [facility] [address] [place] [address] Laney Kirkpatrick MD Other insomnia; Left arm pain; Right hip pain 09/04/2024 Refill [facility] [address] [place] [address] Laney Kirkpatrick MD Cervical radiculopathy due to degenerative joint disease of spine; Anxiety state 09/04/2024 Patient Outreach [facility] [address] [place] [address] Laney Kirkpatrick MD Pre-visit Planning (SDOH screening negative and Tobacco screening negative) 08/16/2024 Telephone [facility] [address] [place] [phone] Laney Kirkpatrick MD Nurse Triage 08/07/2024 Telephone [facility] [address] [place] [phone] Laney Kirkpatrick MD Med Refill 08/07/2024 Refill [facility] [address] [place] [phone] Laney Kirkpatrick MD Other insomnia; Anxiety state 08/07/2024 Refill [facility] [address] [place] [address] Laney Kirkpatrick MD Cervical radiculopathy due to degenerative joint disease of spine; Left arm pain; Right hip pain 07/20/2024 Telephone [facility] [address] [place] [address] Marysol Tovar, RN NCNS [facility] [facility] RV today 07/20/2024 Telephone [facility] [address] [place] [address] Marysol Tovar RN Recommend [employer] Tier 2 from Last 3 Months Immunizations Name Administration Dates Next Due Pfizer Covid-19 Vaccine 12+ 12/25/2020, 1 TD (adult), 2 Lf tetanus tox oid, preservative free, adsorbed 12/07/2005 Tdap 05/23/2019 Social History Tobacco Use Types Packs/Day Years Used Date Smoking Tobacco: Never Passive Smoke Exposure: Never Smokeless Tobacco: Never Tobacco Cessation:Counseling Given: Not Answered Alcohol Use Standard Drinks/Week Comments Never 0 [...] Orientation Straight 06/08/2022 10 :15 AM EDT Last Filed Vital Signs Vital Sign Reading Time Taken Comments Blood Pressure 140/80 09/20/2024 1:36 PM EST Pulse 74 05/18/2024 9:30 AM EDT Temperature 36.1 ??C (97 ??F) 05/18/2024 9:30 AM EDT Respiratory Rate 18 05/18/2024 9:30 AM EDT Oxygen Saturation 99% 05/18/2024 9:30 AM EDT Inhaled Oxygen Concentration - - Weight 69.9 kg (154 lb) 05/18/2024 9:30 AM EDT Height 157.5 cm (5' 2 ) 05/18/2024 9:30 AM EDT Body Mass Index 28.17 05/18/2024 9:30 AM EDT Plan of Treatment Upcoming Encounters Date Type Department Care Team (Late st Contact Info) Description 11/08/2024 2:15 PM EDT Office Visit [facility] [address] [place] [address] Laney Kirkpatrick MD [address] [place] [address] 11/10/2024 1:30 PM EDT Office Visit [facility] [address] [place] [address] Danis Yanez MD [address] [place] [address] 11/23/2024 10:00 AM EDT Office Visit [facility] [address] [place] [address] Ashley Espinal, OD [address] [place] [address] 01/08/2025 1:00 PM EDT Clinical Support [address] [address] Marysol Tovar, RN Health Maintenance Due Date Last Done Comments CT Colonography 1965 Colonoscopy 1965 Colorectal Cancer Screening 1965 FIT DNA/Cologuard 1965 FIT 1965 FOBT 1965 Sigmoidoscopy 1965 Alcohol/Substance Use Screening 1975 Dental Oral Exam 08/26/2013 02/22/2013, , 07/10/2009 Dental Prophylaxis 09/03/2013 03/02/2013, 08/24/2012 Pneumococcal Vaccine: 50+ Years (1 of 1 - PCV) 2013 Zoster Vaccines (1 of 2) 2013 Dental X-Ray: Bitewings 02/23/2014 02/23/20 13, 06/22/2011, 07/10/2009, Additional history exists Depression Screening 11/10/2023 11/09/2022, 11/10/19 23 COVID-19 Vaccine ( season) 2024 12/25/2020, 12/04/2020 Influenza Vaccine (#1) 2024 Mammogram 06/05/2025 06/05/2024, 05/10, 05/25/2022, Additional history exists SDOH Screening 09/04/2025 09/04/2024 Tobacco Screening 09/20/2025 09/20/2024 HPV/Cotest 05/28/2026 05/28/2021 Pap Smear 05/28/2026 05/28/2021 Dental X-Ray: Full Mouth 03/17/2027 03/16/2024, 06/09 DTaP/Tdap/Td Vaccines (2 - Td or Tdap) 05/23/2029 05/23/2019, 12/07/2005 RSV Patients and Patients Aged 60 years or older (1 - 1-dose 75+ series) 2038 HIV Screening Completed 04/13/2024 Hepatitis C Screening Completed 04/13/2024 HIB Vaccines Aged Out No longer eligi ble based on patient's age to complete this topic HPV Vaccines Aged Out No longer eligi ble based on patient's age to complete this topic Hepatitis A Vaccines Aged Out No long er eligible based on patient's age to complete this topic Hepatitis B Vaccines Aged Out No long er eligible based on patient's age to complete this topic IPV Vaccines Aged Out No longer eligi ble based on patient's age to complete this topic Meningococcal Vaccine Aged Out No kirk joycelyn eligible based on patient's age to complete this topic RSV under 20 months Aged Out No longe r eligible based on patient's age to complete this topic Rotavirus Vaccines Aged Out No longer eligible based on patient's age to complete this topic Procedures Procedure Name Priority Date/Time Associated Diagnosis Comments POCT BAUDILIO-14 URINE DRUG SCREEN Routine 09/21/2024 9:53 AM EST Chronic low back pain with sciatica, sciatica laterality unspecified, unspecified back pain laterality CASE PRESENTATION, DETAILED AND EXTENSIVE TREATMENT PLANNING Routine 09/20/2024 1:30 PM EST LIMITED ORAL EVALUATION - PROBLEM FOCUSED Routine 09/20/2024 1:30 PM EST BI MAMMOGRAM SCREENING TOMOSYNTHESIS BILATERAL Routine 06/05/2024 1:00 PM EDT HEPATITIS PANEL, GENERAL Routine 04/13/2024 1:15 PM EDT Panic disorder without agoraphobia HIV 1/2 ANTIGEN/ANTIBODY, FOURTH GENERATION W/RFL Routine 04/13/2024 1:15 PM EDT Panic disorder without agoraphobia PANORAMIC RADIOGRAPHIC IMAGE Routine 03/16/2024 1:00 PM EDT THINPREP IMAGING PAP AND HPV MRNA E6/E7, WITH CT/NG, TRICHOMONAS Routine 05/28/2021 12:00 AM EDT PROPHYLAXIS - ADULT Routine 03/02/2013 1 2:00 AM EDT BITEWINGS - 4 RADIOGRAPHIC IMAGES Routine 02/22/2013 12:00 AM EDT PERIODIC ORAL EVALUATION - ESTABLISHED PATIENT Routine 02/22/2013 12:00 AM EDT from Last 3 Months or Most Recently Relevant to Health Maintenance Results * POCT BAUDILIO-14 Urine Drug Screen (09/21/2024 9:53 AM EST) Benzodiazepines Screen, Urine Positive TCA, Urine Positive Oxycodone Screen, Urine Positive Urine Urine specimen obtained by clean catch procedure / Unknown 09/21/2024 9:53 AM EST Narrative Eric Tovarelle, RN - 09/21/2024 9:53 AM EST UTOX cup Lot#[id number] Exp. 03/28/26 Internal Pass Control us Laney Kirkpatrick MD POINT OF CARE TEST ENTER /EDIT ORDERABLES Final Result * BI Mammogram Screening Tomosynthesis Bilateral (06/05/2024 1:00 PM EDT) Anatomical Region Laterality Modality Breast Bilateral Mammography 06/05/2024 1:00 PM EDT Narrative 06/13/2024 3:12 PM EST ? [facility] [place] ? [address] ?[place] [id number] ? Mammography Report ? Signed ? Patient: Aldo,Ivett Y ?MR#: [id number] ?? [id number] ? : 1965 ?Acct:[id number] ? Age/Sex: 58 / F ?ADM Date: //24 ? Loc: HO.MAMMO ? Attending Dr: Laney Kirkpatrick MD ? Ordering Physician: Laney Kirkpatrick MD ?Results: 1Ne ?? gative ? Date of Service: 06/05/24 ?Follow Up: 1 Year From Orig ?? inal Mammogram ? Procedure(s): MM tomosynthesis screening BI ?? Accession Number(s): [id number] ? cc: Laney Kirkpatrick MD ? EXAMINATION: ?? MM SCREENING DIGITAL BREAST TOMOSYNTHESIS, BILATERAL ? CLINICAL INFORMATION: ? Screening. Asymptomatic. ? COMPARISON: ?? Mammography: Comparison is made with available priors ? TECHNIQUE: ?? Digital breast mammography with tomosynthesis is performed in both the ?? craniocaudal and mediolateral oblique views along with computer-aided ?? detection (CAD). ? FINDINGS: ?? The breasts are heterogeneously dense, which may obscure small masses ?? (ACR BI-RADS breast composition Category c). ? There are no significant masses, abnormal calcifications, or other ?? abnormalities. ? MM/MM tomosynthesis screening BI ?? IMPRESSION: ?? No mammographic evidence of malignancy. ? ASSESSMENT: ? BI-RADS BI-RADS 1 - Negative ? RECOMMENDATION: ?? Routine annual mammography screening. ? 1 year F/U ? This examination should not preclude the clinical evaluation of a ?? suspicious palpable abnormality. ? This patient's information was entered into a reminder system with a ?? target due date for their next mammogram. ? Electronically signed by: ??Eva Rosales DO ??06/13/2024 03:09 PM EST ? Dictated By: ?Eva Rosales DO ? Signed By: ?<Electronically signed by Eva Rosales, DO in OV> ? 06/13/24 1509 ? DD/ 1300 ? TD/TT: 06/05/24 1315 ? Cath Laboratory Technician: ? Procedure Note Jerica Chin - 06/13/2024 [facility] [address] [place] [address] [place] [id number] Mammography Report Signed Patient: Ivett Carlson YMR#: [id number] : 1965Acct:[id number] Age/Sex: 58 / FADM Date: 06/05/24 Loc: HO.MAMMO Attending Dr: Laney Kirkpatrick MD Ordering Physician: Laney Kirkpatrick MDResults: 1Ne gatsmitha Date of Service: 06/05/24Follow Up: 1 Year From [facility]a Mammogram Procedure(s): MM tomosynthesis screening BI Accession Number(s): [id number] cc: Laney Kirkpatrick MD EXAMINATION: MM SCREENING DIGITAL BREAST TOMOSYNTHESIS, BILATERAL CLINICAL INFORMATION: Screening. Asymptomatic. COMPARISON: Mammography: Comparison is made with available priors TECHNIQUE: Digital breast mammography with tomosynthesis is performed in both the craniocaudal and mediolateral oblique views along with computer-aided detection (CAD). FINDINGS: The breasts are heterogeneously dense, which may obscure small masses (ACR BI-RADS breast composition Category c). There are no significant masses, abnormal calcifications, or other abnormalities. MM/MM tomosynthesis screening BI IMPRESSION: No mammographic evidence of malignancy. ASSESSMENT: BI-RADS BI-RADS 1 - Negative RECOMMENDATION: Routine annual mammography screening. 1 year F/U This examination should not preclude the clinical evaluation of a suspicious palpable abnormality. This patient's information was entered into a reminder system with a target due date for their next mammogram. Electronically signed by: Eva Rosales DO 06/13/2024 03:09 PM [facility] Dictated By: Eva Rosales DO Signed By: <Electronically signed by Eva Rosales DO in OV> 06/13/24 1509 DD/ 1300 TD/TT: 06/05/24 1315 Cath Laboratory Technician: us Laney Kirkpatrick MD IMG BI PROCEDURES Final Result * Hepatitis Panel, General (04/13/2024 1:15 PM EDT) Hepatitis A IgM Nonreactive Nonreactive [facility] Comment:IgM antibodies to WISE V not detected; does not exclude earlyacute or recovered HAV infection. ~Hepatitis B Surface Antibody REACTIVE Nonreactive [facility] Comment:REACTIVE: > 11.99 mI U/mL Hepatitis B Core Antibody Reactive Nonreactive [facility] Comment:Presumptive evidence of anti-HBc. Hepatitis C Antibody Nonreactive Nonreactive [facility] Comment:Antibodies to HCV no t detected; does not exclude early acuteHCV infection. Hepatitis B Surface Ag Negative Negative [facility] Blood 04/13/2024 1:15 PM EDT 04/13/2024 4:22 PM EDT Laney Kirkpatrick MD LAB BLOOD ORDERABLES Fin al Result Performing Organization Address [facility]/ZIP Co de Phone Number [facility] [address] [place] [address] [phone] * HIV-1/2 Antigen and Antibodies, Fourth Generation, with Reflexes (04/13/2024 1:15 PM EDT) HIV AB/AG Nonreactive Nonreactive [facility] Comment:HIV-1 p24 Ag and/or HIV-1/HIV-2 Ab not detected.A test result that is nonreactive does not exclude thepossibility of exposure to or infection with HIV-1 and/orHIV-2. Nonreactive results in this assay for individualswith prior exposure to HIV-1 and/or HIV-2 may be due toantigen and antibody levels that are below the limit ofdetection of this assay.The [employer] HIV Ag/Ab Combo assay result andsupplemental assay results should be interpreted inconjunction with the patient's clinical presentation,history and other laboratory results. If the results areinconsistent with clinical evidence, additional testing issuggested to confirm the result. Blood Venous blood specimen / Unknown 04/13/2024 1:15 PM EDT 04/13/2024 4:22 PM EDT Laney Kirkpatrick MD LAB BLOOD ORDERABLES Fin al Result Performing Organization Address [facility]/ZIP Co de Phone Number [facility] [address] [place] [address] [phone] * THINPREP TIS PAP AND HPV mRNA E6/E7, CT/NG, TRICH (05/28/2021 12:00 AM EDT) Chlamydia trachomatis RNA, TMA, Urogenital NOT DETECTED NOT DETECTED [facility] Clinical Information: None given [facility] COMMENT SEE COMMENT [facility] Comment: The analytical performance characteristics of this assay, when used to test SurePath(TM) specimens have been determined by [employer]. The modifications have not been cleared or approved by the FDA. This assay has been validated pursuant to the CLIA regulations and is used for clinical purposes. ?? For additional information, please refer to https://[employer].PromoteU/faq/HDG600 (This link is being provided for information/ educational purposes only.) ?? COMMENT SEE COMMENT [facility] Comment: EXPLANATORY NOTE: ? The Pap is a screening test for cervical cancer. It is ?? not a diagnostic test and is subject to false negative ?? and false positive results. It is most reliable when a ?? satisfactory sample, regularly obtained, is submitted ?? with relevant clinical findings and history, and when ?? the Pap result is evaluated along with historic and ?? current clinical information. ?? COMMENT: This Pap test has been evaluated with computer assisted technology. [facility] Industrial Equipment Wirer: SEE COMMENT [facility] Comment: RMKARISHMA Howard(ASCP) CT screening location: [address] ??[id number] HPV nRNA E6/E7 Not Detected Not Detected [facility] Comment: Methodology: Finishing Range Operator-Mediated Amplification This assay detects E6/E7 viral messenger RNA (mRNA) from 14 high-risk HPV types (16,18,31,33,35,39,45,51,52,56,58,59,66,68). ? The analytical performance characteristics of this assay have been determined by [employer]. The modifications have not been cleared or approved by the FDA. This assay has been validated pursuant to the CLIA regulations and is used for clinical purposes. ?? For additional information, please refer to http://[employer].PromoteU/faq/IME491o6 (This link if provided for information/ educational purposes only.) Interpretation/Res ult: SEE COMMENT [facility] Comment: Negative for intraepithelial lesion or malignancy. Atrophic pattern; predominantly parabasal cells LMP: NONE GIVEN [facility] Neisseria gonorrhoeae RNA, TMA, Urogenital NOT DETECTED NOT DETECTED [facility] Prev. BX: NONE GIVEN [facility] Prev. PAP: NONE GIVEN [facility] SOURCE: None given [facility] Statement Of Adequacy: SATISFACTORY FOR EVALUATION Partially obscuring inflammation [facility] Trichomonas vaginalis, QL, TMA, PAP Vial NOT DETECTED NOT DETECTED [facility] Comment: The analytical performance characteristics of this assay have been determined by [employer]. The modifications have not been cleared or approved by the FDA. This assay has been validated pursuant to the CLIA regulations and is used for clinical purposes. ?? For additional information, please refer to http://education.PromoteU/ faq/Trichomonastma (This link is being provided for information/ educational purposes only.) ?? 05/28/2021 Laney Kirkpatrick MD LAB PATHOLOGY ORDERABLES Final Result [facility] [address] from Last 3 Months or Most Recently Relevant to Health Maintenance Insurance [facility] Care Teams Insurance Manager Relationship Specialty Start Date End Date Laney Kirkpatrick MD [address] [place] [phone] PCP - General Family Medicine 11/25/17
--- OUTSIDE RECORDS SUMMARY | 2024-10-18 15:45 | XMS_ITS | Encounter Summary ---
Author Organization [employer] Address [address] [facility] 7t [place] [address] Care Team Providers Care Art Preparator Name Role Phone Laney Kirkpatrick MD Primary Care Provider + Encounter Details Date Type Department Care Team (Latest Contact Info) Description 09/21/2024 Travel Social History Tobacco Use Types Packs/Day Years Used Date Smoking Tobacco: Never Passive Smoke Exposure: Never Smokeless Tobacco: Never Alcohol Use Standard Drinks/Week Comments Never 0 (1 standard drink = 0.6 oz pur e alcohol) Depression Answer Date Recorded Patient Health Questionnaire-9 Score 7 11/09/2022 Housing Stability Answer Date Recorded What is your housing situation today? I have dionicioisaiah pennington 09/04/[address] you [...] Description 11/08/2024 2:15 PM EDT Office Visit [facility] [address] [place] [address] Laney Kirkpatrick MD [address] [place] [address] 11/10/2024 1:30 PM EDT Office Visit [facility] [address] [place] [phone] Danis Yanez MD [address] [place] [address] 11/23/2024 10:00 AM EDT Office Visit [facility] OPTOMETRY [address] [place] [address] Ashley Espinal OD [address] [place] [address] 01/08/2025 1:00 PM EDT Clinical Support [facility] [address] [place] [phone] Marysol Tovar RN documented as of this encounter Visit Diagnoses Not on filedocumented in this encounter Additional Health Concerns Assessment Noted Time PHQ-9 Depression Total Score: 7 11/10/19 23 3:56 PM EDT documented as of this encounter Care Teams Art Preparator Relationship Specialty Start Date End Date Laney Kirkpatrick MD [address] [place] [phone] PCP - General Family Medicine 11/25/17 documented as of this encounter
--- OUTSIDE RECORDS SUMMARY | 2024-10-18 15:45 | XMS_ITS | Encounter Summary ---
Author Organization [employer] Address [address] [facility] [address] 7t [place] [address] Care Team Providers Care Trackmobile Operator Name Role Phone Laney Kirkpatrick MD Primary Care Provider + Reason for Visit * Reason Onset Date Comments Med Refill 09/21/2024 BPI & BETTYE Scoring 09/21/2024 Encounter Details Date Type Department Care Team (Late st Contact Info) Description 09/21/2024 Refill [facility] [address] [place] [phone] Marysol Tovar RN Chronic rhinitis Social History Tobacco Use Types Packs/Day Years Used Date Smoking Tobacco: Never Passive Smoke Exposure: Never Smokeless Tobacco: Never Alcohol Use Standard Drinks/Week Comments Never 0 (1 standard drink = 0.6 oz pur e alcohol) Depression Answer Date Recorded Patient Health Questionnaire-9 Score 7 11/09/2022 Housing Stability Answer Date Recorded What is your housing situation today? I have dionicio aditi 09/04/[address] you li [...] the past 12 months, has t he [employer], gas, oil or water company threatened to [...] encounter Miscellaneous Notes * Telephone Encounter - Marysol Tovar RN - 09/21/2024 10:57 AM EST Pt had APPLIED PSYCHOLOGY TEACHER RV appt today Pt had 75 oxycodone pills at this time, 79 at least expected. Pt states she has taken 5 doses a daywhen her pain is more severe. Reviewed oxycodone order. Reminded she should only take 4 doses in a day and that if she takes more she will run out before her refill. Reminded to speak with her PCPbefore she takes her medication differently than ordered. BPI Pain severity score of 8.8, activity interference score of 9.9. Previous BPI completed 01/20/24 with pain severity score of 8, activity interference score of 10. BETTYE-7 pt scored a 5, previous BETTYE-7 completed 01/20/24 with a score of 4. Pt also requesting refill of her loratadine and would like her benadryl discontinued since she doesn't like to use it. documented in this encounter Plan of Treatment Upcoming Encounters Date Type Department Care Team (Late st Contact Info) Description 11/08/2024 2:15 PM EDT Office Visit [facility] [address] [place] [address] Laney Kirkpatrick MD [address] [place] [address] 11/10/2024 1:30 PM EDT Office Visit [facility]INE [address] [place] [phone] Danis Yanez MD [address] [place] [address] 11/23/2024 10:00 AM EDT Office Visit [facility] OPTOMETRY [address] [place] [address] Ashley Espinal, OD [address] [place] [address] 01/08/2025 1:00 PM EDT Clinical Support [facility] [address] [place] [address] Marysol Tovar RN documented as of this encounter Visit Diagnoses Diagnosis Chronic rhinitis documented in this encounter Additional Health Concerns Assessment Noted Time PHQ-9 Depression Total Score: 7 11/10/19 23 3:56 PM EDT documented as of this encounter Care Teams Trackmobile Operator Relationship Specialty Start Date End Date Laney Kirkpatrick MD [address] [place] [phone] PCP - General Family Medicine 11/25/17 documented as of this encounter
--- OUTSIDE RECORDS SUMMARY | 2024-10-18 15:45 | XMS_ITS | Encounter Summary ---
Author Organization [employer] Address [address] [facility] 7t [place] [address] Care Team Providers Care Land Sales Agent Name Role Phone Laney Kirkpatrick MD Primary Care Provider + Reason for Visit * Reason Comments Med Refill Encounter Details Date Type Department Care Team ([facility] st Contact Info) Description 10/10/2024 Refill [facility] [address] [place], [place] [phone] Laney Kirkpatrick MD [address] [place] [address] Left arm pain; Right hip pain Social History Tobacco Use Types Packs/Day Years Used Date Smoking Tobacco: Never Passive Smoke Exposure: Never Smokeless Tobacco: Never Alcohol Use Standard Drinks/Week Comments Never 0 (1 standard drink = 0.6 oz pur e alcohol) Depression Answer Date Recorded Patient Health Questionnaire-9 Score 7 11/09/2022 Housing Stability Answer Date Recorded What is your housing situation today? I have dioincio pennington 09/04/[address] you [...] Description 11/08/2024 2:15 PM EDT Office Visit [facility] [address] [place] [phone] Laney Kirkpatrick MD [address] [place] [phone] 11/10/2024 1:30 PM EDT Office Visit [facility] [address] [place] [phone] Danis Yanez MD [address] [place] [address] 11/23/2024 10:00 AM EDT Office Visit [facility] OPTOMETRY [address] [place] [address] Ashley Espinal OD [address] [place] [address] 01/08/2025 1:00 PM EDT Clinical Support [facility] [address] [place] [address] Marysol Tovar RN documented as of this encounter Visit Diagnoses Diagnosis Left arm pain Pain in soft tissues of limb Right hip pain Pain in joint, pelvic region and thigh documented in this encounter Additional Health Concerns Assessment Noted Time PHQ-9 Depression Total Score: 7 11/10/19 23 3:56 PM EDT documented as of this encounter Care Teams Land Sales Agent Relationship Specialty Start Date End Date Laney Kirkpatrick MD [address] [place] [address] PCP - General Family Medicine 11/25/17 documented as of this encounter
--- OUTSIDE RECORDS SUMMARY | 2024-10-18 15:45 | XMS_ITS | Encounter Summary ---
Author Organization [employer] [facility] Address [address] [place] [address] 7t [place] [address] Care Team Providers Care Business Process Specialist Name Role Phone Laney Kirkpatrick MD Primary Care Provider + Reason for Visit * Reason Comments Med Change Request Encounter Details Date Type Department Care Team ([facility] Contact Info) Description 04/08/2023 Refill [facility] [address] [place] [address] [phone] Laney Kirkpatrick MD [address] [place] [address] [phone] Lumbar disc disease with radiculopathy Social History Tobacco Use Types Packs/Day Years [...] Upcoming Encounters Date Type Department Care Team ([facility] Contact Info) Description 11/08/2024 2:15 PM EDT Office Visit [facility] [address] [place] [address] [phone] Laney Kirkpatrick MD [address] [place] [address] [phone] 11/10/2024 1:30 PM EDT Office Visit [facility] [address] [place] [address] Danis Yanez MD [address] [place] [address] 11/23/2024 10:00 AM EDT Office Visit [facility] OPTOMETRY [address] [place] [address] Ashley Espinal, OD [address] [place] [address] 01/08/2025 1:00 PM EDT Clinical Support [facility] [address] [place] [address] Marysol Tovar RN documented as of this encounter Visit Diagnoses Diagnosis Lumbar disc disease with radiculopathy documented in this encounter Additional Health Concerns Assessment Noted Time PHQ-9 Depression Total Score: 7 11/10/19 23 3:56 PM EDT documented as of this encounter Care Teams Business Process Specialist Relationship Specialty Start Date End Date Laney Kirkpatrick MD [address] [place] [phone] PCP - General Family Medicine 11/25/17 documented as of this encounter
--- OUTSIDE RECORDS SUMMARY | 2024-10-18 15:45 | XMS_ITS | Encounter Summary ---
Author Organization [employer] Address [address] [facility] 7t [place] [address] Care Team Providers Care Physical Education Department Chair Name Role Phone Laney Kirkpatrick MD Primary Care Provider + Reason for Visit * Reason Onset Date Comments Med Refill 10/06/2024 Encounter Details Date Type Department Care Team ([facility] st Contact Info) Description 10/06/2024 Refill [facility] [address] [place] [address] Laney Kirkpatrick MD [address] [place] [address] Cervical radiculopathy due to degenerative joint disease of spine Social History Tobacco Use Types Packs/Day Years [...] encounter Miscellaneous Notes * Telephone Encounter - Nery Lim RN - 10/06/2024 1:15 PM EST Medication refill too early. Patient last p/u medication on 09/13/24 for a 28 day supply. Medication is not due until 10/11/24. * Telephone Encounter - Reny Olvera - 10/06/2024 12:57 PM EST TC from pt requesting medication refill. Medications needing refill : oxyCODONE (Roxicodone) 10 MG immediate release tablet To be sent to: [facility]/pharmacy #[id number] documented in this encounter Plan of Treatment Upcoming Encounters Date Type Department Care Team (Late st Contact Info) Description 11/08/2024 2:15 PM EDT Office Visit [facility] [address] [place] [address] [phone] Laney Kirkpatrick MD [address] [place] [phone] 11/10/2024 1:30 PM EDT Office Visit [facility] [address] [place] [address] Danis Yanez MD [address] [place] [address] 11/23/2024 10:00 AM EDT Office Visit [facility] OPTOMETRY [address] [place] [address] Ashley Espinal, OD [address] [place] [address] 01/08/2025 1:00 PM EDT Clinical Support [facility] [address] [place] [address] Marysol Tovar RN documented as of this encounter Visit Diagnoses Diagnosis Cervical radiculopathy due to degenerative joint disease of spine documented in this encounter Additional Health Concerns Assessment Noted Time PHQ-9 Depression Total Score: 7 11/10/19 23 3:56 PM EDT documented as of this encounter Care Teams Physical Education Department Chair Relationship Specialty Start Date End Date Laney Kirkpatrick MD [address] [place] [phone] PCP - General Family Medicine 11/25/17 documented as of this encounter
--- OUTSIDE RECORDS SUMMARY | 2024-10-18 15:45 | XMS_ITS | Encounter Summary ---
Author Organization [employer] [facility] Address [address] [facility] 7t [place] [address] Care Team Providers Care Chair And Couch Maker Name Role Phone Laney Kirkpatrick MD Primary Care Provider + Encounter Details Date Type Department Care Team (Late st Contact Info) Description 07/09/2022 Abstract [facility] MEDICINE [address] [place] [phone] ProviderDina MD Social History Tobacco Use Types Packs/Day Years Used Date Smoking Tobacco: Never Assessed Comments Unknown Sex and Gender Information Value [...] suspected to have Coronavirus/COVID-19? No / Unsure 07/09/2022 9:23 AM EST documented as of this encounter Plan of Treatment Upcoming Encounters Date Type Department Care Team (Late st Contact Info) Description 11/08/2024 2:15 PM EDT Office Visit [facility] MED[facility]INE [address] [place] [phone] Laney Kirkpatrick MD [address] [place] [address] 11/10/2024 1:30 PM EDT Office Visit [facility] MED[facility]INE [address] [place] [address] Danis Yanez MD [address] [place] [address] [place] [address] 11/23/2024 10:00 AM EDT Office Visit [facility] OPTOMETRY [address] [place], [place] [phone] Ashley Espinal, OD [address] [place] [address] 01/08/2025 1:00 PM EDT Clinical Support [facility] MEDICINE [address] [place] [address] Marysol Tovar, HAWK documented as of this encounter Visit Diagnoses Not on filedocumented in this encounter Care Teams Chair And Couch Maker Relationship Specialty Start Date End Date Laney Kirkpatrick MD [address] [place] [address] [phone] PCP - General Family Medicine 11/25/17 documented as of this encounter
--- OUTSIDE RECORDS SUMMARY | 2024-10-18 15:45 | XMS_ITS | Encounter Summary ---
Author Organization [employer] [facility] Address [address] [facility] 7t [place] [address] Care Team Providers Care Sports Nutritionist Name Role Phone Laney Kirkpatrick MD Primary Care Provider + Encounter Details Date Type Department Care Team (Late st Contact Info) Description 07/09/2022 Abstract [facility] MED[facility]INE [address] [place] [phone] ProviderDina MD Social History Tobacco Use Types [...] Description 11/08/2024 2:15 PM EDT Office Visit [facility] [address] [place] [address] Laney Kirkpatrick MD [address] [place] [address] 11/10/2024 1:30 PM EDT Office Visit [facility] [address] [place] [phone] Danis Yanez MD [address] [place] [address] [place] [address] 11/23/2024 10:00 AM EDT Office Visit [facility] OPTOMETRY [address] [place], [place] [phone] Ashley Espinal, OD [address] [place] [address] 01/08/2025 1:00 PM EDT Clinical Support [facility] [address] [place] [address] Marysol Tovar, HAWK documented as of this encounter Visit Diagnoses Not on filedocumented in this encounter Care Teams Sports Nutritionist Relationship Specialty Start Date End Date Laney Kirkpatrick MD [address] [place] [address] [phone] PCP - General Family Medicine 11/25/17 documented as of this encounter
--- OUTSIDE RECORDS SUMMARY | 2024-10-18 15:45 | XMS_ITS | Encounter Summary ---
Author Organization [employer] Address [address] [facility] 7t [place] [address] Care Team Providers Care Paid Search Specialist Name Role Phone Laney Kirkpatrick MD Primary Care Provider + Reason for Visit * Reason Comments Med Change Request Encounter Details Date Type Department Care Team ([facility] st Contact Info) Description 07/18/2023 Refill [facility] [address] [place], [place] [phone] Shadia Nieves DO [address] [place] [address] Panic disorder without agoraphobia Social History Tobacco Use Types Packs/Day Years Used Date Smoking Tobacco: Never Passive Smoke Exposure: Never Smokeless Tobacco: Never Alcohol Use Standard Drinks/Week Comments Never 0 (1 standard drink = 0.6 oz pur e alcohol) Depression Answer Date Recorded Patient Health Questionnaire-9 Score 7 11/09/2022 Housing Stability Answer Date Recorded What is your housing situation today? I have idonicio pennington 05/27/[address] you [...] EDT Office Visit [facility] [address] [place] [address] Laney Kirkpatrick MD [address] [place] [address] 11/10/2024 1:30 PM EDT Office Visit [facility] [address] [place] [phone] Danis Yanez MD [address] [place] [address] 11/23/2024 10:00 AM EDT Office Visit [facility] OPTOMETRY [address] [place] [address] Ashley Espinal, OD [address] [place] [address] 01/08/2025 1:00 PM EDT Clinical Support [facility] [address] [place] [phone] Marysol Tovar RN documented as of this encounter Visit Diagnoses Diagnosis Panic disorder without agoraphobia documented in this encounter Additional Health Concerns Assessment Noted Time PHQ-9 Depression Total Score: 7 11/10/19 23 3:56 PM EDT documented as of this encounter Care Teams Paid Search Specialist Relationship Specialty Start Date End Date Laney Kirkpatrick MD [address] [place] [phone] PCP - General Family Medicine 11/25/17 documented as of this encounter
--- OUTSIDE RECORDS SUMMARY | 2024-10-18 15:45 | XMS_ITS | Encounter Summary ---
Author Organization [employer] Address [address] [facility] 7t [place] [address] Care Team Providers Care Analytics Architect Name Role Phone Laney Kirkpatrick MD Primary Care Provider + Reason for Visit * Reason Onset Date Comments Med Refill 07/09/2022 Encounter Details Date Type Department Care Team ([facility] Contact Info) Description 07/09/2022 Telephone [facility] MED[facility]INE [address] [place], [place] [phone] Laney Kirkpatrick MD [address] [place] [address] Med Refill Social History Tobacco Use Types [...] AM EST documented as of this encounter Miscellaneous Notes * Telephone Encounter - Mame De Guzman - 07/09/2022 1:19 PM EST TC from pt requesting a refill for Oxycodone [address] Kirkpatrick documented in this encounter Plan of Treatment Upcoming Encounters Date Type Department Care Team (Late st Contact Info) Description 11/08/2024 2:15 PM EDT Office Visit [facility] MED[facility] [address] [place] [address] Laney Kirkpatrick MD [address] [place] [address] 11/10/2024 1:30 PM EDT Office Visit [facility] MED[facility]INE [address] [place] [address] Danis Yanez MD [address] [place] [address] 11/23/2024 10:00 AM EDT Office Visit [facility] OPTOMETRY [address] [place] [address] Ashley Espinal, OD [address] [place] [address] 01/08/2025 1:00 PM EDT Clinical Support [facility] MED[facility]INE [address] [place] [address] Marysol Tovar, HAWK documented as of this encounter Visit Diagnoses Not on filedocumented in this encounter Care Teams Analytics Architect Relationship Specialty Start Date End Date Laney Kirkpatrick MD [address] [place] [phone] PCP - General Family Medicine 11/25/17 documented as of this encounter
--- OUTSIDE RECORDS SUMMARY | 2024-10-18 15:45 | XMS_ITS | Encounter Summary ---
Author Organization [employer] Address [address] [facility] 7t [place] [address] Care Team Providers Care Speed Reading Teacher Name Role Phone Laney Kirkpatrick MD Primary Care Provider + Reason for Visit * Reason Onset Date Comments Med Refill 10/06/2024 Encounter Details Date Type Department Care Team ([facility] st Contact Info) Description 10/06/2024 Refill [facility] [address] [place] [address] Laney Kirkpatrick MD [address] [place] [address] Other insomnia Social History Tobacco Use Types Packs/Day Years [...] Telephone Encounter - Shadia Perdomo LPN - 10/06/2024 1:03 PM EST ELECTRICIAN MACHINE SHOP checked on 10/06/24. Next appointment 11/08/24. * Telephone Encounter - Reny Olvera - 10/06/2024 12:59 PM EST TC from pt requesting medication refill. Medications needing refill : Zolpidem (Ambien) 10 MG tablet To be sent to: [facility]/pharmacy #[id number] documented in this encounter Plan of Treatment Upcoming Encounters Date Type Department Care Team (Late st Contact Info) Description 11/08/2024 2:15 PM EDT Office Visit [facility] [address] [place] [phone] Laney Kirkpatrick MD [address] [place] [address] 11/10/2024 1:30 PM EDT Office Visit [facility] [address] [place] [address] Danis Yanez MD [address] [place] [address] 11/23/2024 10:00 AM EDT Office Visit [facility] [address] [place] [address] Ashley Espinal, OD [address] [place] [address] 01/08/2025 1:00 PM EDT Clinical Support [facility] [address] [place] [address] Marysol Tovar, HAWK documented as of this encounter Visit Diagnoses Diagnosis Other insomnia documented in this encounter Additional Health Concerns Assessment Noted Time PHQ-9 Depression Total Score: 7 11/10/19 23 3:56 PM EDT documented as of this encounter Care Teams Speed Reading Teacher Relationship Specialty Start Date End Date Laney Kirkpatrick MD [address] [place] [address] PCP - General Family Medicine 11/25/17 documented as of this encounter
--- OUTSIDE RECORDS SUMMARY | 2024-10-18 15:45 | XMS_ITS | Encounter Summary ---
Author Organization [employer] Address [address] [facility] 7t [place] [address] Care Team Providers Care Incident Handler Name Role Phone Laney Kirkpatrick MD Primary Care Provider + Reason for Visit * Reason Comments CHIEF INSPECTOR RV CHIEF INSPECTOR RV Encounter Details Date Type Department Care Team (Latest Contact Info) Description 09/21/2024 9:30 AM EST Clinical Support [facility] [address] [place] [address] Marysol Tovar RN Chronic low back pain with sciatica, sciatica laterality unspecified, unspecified back pain laterality (Primary Dx) Social History Tobacco Use Types Packs/Day Years [...] t he electric, gas, oil or water [employer] threatened to shut off services in your [...] AM EDT documented as of this encounter Progress Notes * Marysol Tovar RN - 09/21/2024 9:30 AM EST S: Pt here for CHIEF INSPECTOR Revisit. Prescribed Oxycodone 10mg Q6hr PRN & Lorazepam 0.5mg BID PRN. States she has been taking medications as prescribed, last dose taken for both was this morning at 6am. Denies smoking cigarettes, ETOH use, Illicit drug use and marijuana use. Currently rates her pain an 8 and states medication is 75% effective at alleviating her pain. Current pain sites are her back, right hip, right leg down to her right ankle and her right shoulder. She feels like her Lorazepam does help with her anxiety. Continues to state that she does not sleep well at all. Denies speaking with a therapist and declines a referral. O: CHIEF INSPECTOR Tier 3. Pt currently prescribed Oxycodone 10mg Q6hr PRN & Lorazepam 0.5mg BID PRN. MECHANICAL SPREADER OPERATOR'sverified today. Oxycodone Rx last filled on 09/13/24. Pill count performed. Pt has 75 pills at this time, 79 at least expected. Pt states she has taken 5 doses a day when her pain is more severe. Reviewed oxycodone order. Reminded she should only take 4 doses in a day and that if she takes more she wi ll run out before her refill. Reminded to speak with her PCP if she feels her medication isnt helping well enough before she takes differently than ordered. Lorazepam Rx last filled on 09/05/24. Pill count performed. Pt has 14 lorazepam remaining, anticipated 0. UTOX completed. Positive for BZO, OXY& TCA, Negative for AMP, BAR, BUP, PARISH, FTY, MDMA, MET, MOP, MTD, PCP, THC. UTOX as expected. BP I & BETTYE-7 updated today. BPI Pain severity score of 8.8, activity interference score of 9.9. Previous BPI completed 01/20/24 with pain severity score of 8, activity interference score of 10. BETTYE-7pt scored a 5, previous BETTYE-7 completed 01/20/24 with a score of 4. Pt also requesting refill of herloratadine and would like her benadryl discontinued since she doesn't like to use it. Will update PCP with BPI & BETTYE scoring, oxycodone use and loratadine/benadryl concern. Last PCP visit was 06/14/24. A: CHIEF INSPECTOR Contract Revisit: Chronic Opioid use related to pain & Chronic BZO use r/t anxiety. P: Pt to continue taking medication only as prescribed; Next CHIEF INSPECTOR RV appointment scheduled for 01/08/25 @ 1pm. F/U sooner PRN. Appointment reminder given. Pt verbalized understanding and agreed to plan. documented in this encounter Plan of Treatment Upcoming Encounters Date Type Department Care Team (Late st Contact Info) Description 11/08/2024 2:15 PM EDT Office Visit [facility] MED[facility] [address] [place] [address] Laney Kirkpatrick MD [address] [place] [address] 11/10/2024 1:30 PM EDT Office Visit [facility] [address] [place] [address] Danis Yanez MD [address] [place] [address] 11/23/2024 10:00 AM EDT Office Visit [facility] OPTOMETRY [address] [place] [address] Ashley Espinal, OD [address] [place] [address] 01/08/2025 1:00 PM EDT Clinical Support [facility] [address] [place] [address] Marysol Tovar, RN documented as of this encounter Procedures Procedure Name Priority Date/Time Associated Diagnosis Comments POCT BAUDILIO-14 URINE DRUG SCREEN Routine 09/21/2024 9:53 AM EST Chronic low back pain with sciatica, sciatica laterality unspecified, unspecified back pain laterality documented in this encounter Results * POCT BAUDILIO-14 Urine Drug Screen (09/21/2024 9:53 AM EST) Benzodiazepines Screen, Urine Positive TCA, Urine Positive Oxycodone Screen, Urine Positive Urine Urine specimen obtained by clean catch procedure / Unknown 09/21/2024 9:53 AM EST Narrative Marysol Tovar RN - 09/21/2024 9:53 AM EST UTOX cup Lot#[id number] Exp. 03/28/26 Internal Pass Control Laney Kirkpatrick MD POINT OF CARE TEST ENTER /EDIT ORDERABLES Final Result documented in this encounter Visit Diagnoses Diagnosis Chronic low back pain with sciatica, sciatica laterality unspecified, unspecified back pain laterality- Primary documented in this encounter Additional Health Concerns Assessment Noted Time PHQ-9 Depression Total Score: 7 11/10/19 23 3:56 PM EDT documented as of this encounter Care Teams Incident Handler Relationship Specialty Start Date End Date Laney Kirkpatrick MD [address] [place] [address] PCP - General Family Medicine 11/25/17 documented as of this encounter
--- OUTSIDE RECORDS SUMMARY | 2024-10-18 15:45 | XMS_ITS | Encounter Summary ---
Author Organization [employer] Address [address] [facility] [address] 7[address] [place] [address] Care Team Providers Care Ad Terminal Makeup Operator Name Role Phone Laney Kirkpatrick MD Primary Care Provider + Reason for Visit * Reason Comments Med Refill Encounter Details Date Type Department Care Team ([facility] st Contact Info) Description 03/20/2024 Refill [facility] [address] [place] [address] Pawel Pate DDS [address] [place] [address] Social History Tobacco Use Types Packs/Day Years [...] encounter Miscellaneous Notes * Telephone Encounter - Basil Francois DMD - 03/20/2024 3:08 PM EDT Approving, but needs appt for additional refills. documented in this encounter Plan of Treatment Upcoming Encounters Date Type Department Care Team (Late st Contact Info) Description 11/08/2024 2:15 PM EDT Office Visit [facility] [address] [place] [phone] Laeny Kirkpatrick MD [address] [place] [address] 11/10/2024 1:30 PM EDT Office Visit [facility] [address] [place] [address] Danis Yanez MD [address] [place] [address] 11/23/2024 10:00 AM EDT Office Visit [facility] OPTOMETRY [address] [place] [address] Ashley Espinal OD [address] [place] [address] 01/08/2025 1:00 PM EDT Clinical Support [facility] [address] [place] [address] Marysol Tovar RN documented as of this encounter Visit Diagnoses Not on filedocumented in this encounter Additional Health Concerns Assessment Noted Time PHQ-9 Depression Total Score: 7 11/10/19 23 3:56 PM EDT documented as of this encounter Care Teams Ad Terminal Makeup Operator Relationship Specialty Start Date End Date Laney Kirkpatrick MD [address] [place] [phone] PCP - General Family Medicine 11/25/17 documented as of this encounter
--- OUTSIDE RECORDS SUMMARY | 2024-10-18 15:45 | XMS_ITS | Encounter Summary ---
Author Organization [employer] [facility] Address [address] [place] [address] 7 [place] [address] Care Team Providers Care Host/Hostess Name Role Phone Laney Kirkpatrick MD Primary Care Provider + Reason for Visit * Reason Comments Med Refill Encounter Details Date Type Department Care Team ([facility] Contact Info) Description 04/21/2023 Refill [facility] MED[facility] [address] [place] [address] [phone] Laney Kirkpatrick MD [address] [place] [address] [phone] Anxiety state Social History Tobacco Use Types [...] Upcoming Encounters Date Type Department Care Team ([facility] Contact Info) Description 11/08/2024 2:15 PM EDT Office Visit [facility] MED[facility] [address] [place] [phone] Laney Kirkpatrick MD [address] [place] [address] [phone] 11/10/2024 1:30 PM EDT Office Visit [facility] MED[facility] [address] [place] [address] Danis Yanez MD [address] [place] 11/23/2024 10:00 AM EDT Office Visit [facility] OPTOMETRY [address] [place], [place] [phone] Ashley Espinal, OD [address] [place] [address] 01/08/2025 1:00 PM EDT Clinical Support [facility] [address] [place] [phone] Marysol Tovar, HAWK documented as of this encounter Visit Diagnoses Diagnosis Anxiety state Anxiety state, unspecified documented in this encounter Additional Health Concerns Assessment Noted Time PHQ-9 Depression Total Score: 7 11/10/19 23 3:56 PM EDT documented as of this encounter Care Teams Host/Hostess Relationship Specialty Start Date End Date Laney Kirkpatrick MD [address] [place] [address] [phone] PCP - General Family Medicine 11/25/17 documented as of this encounter
--- OUTSIDE RECORDS SUMMARY | 2024-10-18 15:45 | XMS_ITS | Encounter Summary ---
Author Organization [employer] [facility] Address [address] [place] [address] 7 [place] [address] Care Team Providers Care Restaurant Service Manager Name Role Phone Laney Kirkpatrick MD Primary Care Provider + Reason for Visit * Reason Comments Med Refill Encounter Details Date Type Department Care Team ([facility] Contact Info) Description 04/21/2023 Refill [facility] MED[facility] [address] [place] [address] [phone] Laney Kirkpatrick MD [address] [place] [address] [phone] Other insomnia Social History Tobacco Use Types [...] Upcoming Encounters Date Type Department Care Team ([facility] Contact Info) Description 11/08/2024 2:15 PM EDT Office Visit [facility] MED[facility] [address] [place] [address] Laney Kirkpatrick MD [address] [place] [address] [phone] 11/10/2024 1:30 PM EDT Office Visit [facility] MED[facility] [address] [place], [place] [phone] Danis Yanez MD [address] [place], [place] 11/23/2024 10:00 AM EDT Office Visit [facility] OPTOMETRY [address] [place], [place] [phone] Ashley Espinal, OD [address] [place], [place] [phone] 01/08/2025 1:00 PM EDT Clinical Support [facility] MEDICINE [address] [place] [address] [phone] Marysol Tovar, HAWK documented as of this encounter Visit Diagnoses Diagnosis Other insomnia documented in this encounter Additional Health Concerns Assessment Noted Time PHQ-9 Depression Total Score: 7 11/10/19 23 3:56 PM EDT documented as of this encounter Care Teams Restaurant Service Manager Relationship Specialty Start Date End Date Laney Kirkpatrick MD [address] [place] [address] [phone] PCP - General Family Medicine 11/25/17 documented as of this encounter
--- OUTSIDE RECORDS SUMMARY | 2024-10-18 15:45 | XMS_ITS | Encounter Summary ---
Author Organization [employer] Address [address] [facility] 7t [place] [address] Care Team Providers Care Security Vehicle Patrol Officer Name Role Phone Laney Kirkpatrick MD Primary Care Provider + Reason for Visit * Reason Comments Med Refill Encounter Details Date Type Department Care Team ([facility] st Contact Info) Description 09/02/2022 Refill [facility] [address] [place], [place] [phone] Laney Kirkpatrick MD [address] [place], [place] [phone] Other insomnia Social History Tobacco Use Types [...] Telephone Encounter - Marysol Tovar RN - 09/10/2022 3:28 PM EST FYI: Pt had MANAGER COMBINATION RV today. Oxycodone count was 69, anticipated her to have 87. She's been taking 5 tablets instead of 4 d/t increased c/o pain. States she had another fall recently. Instructed her to speak with you prior to changing her dose of Oxy. She is scheduled to see you for increased c/o painon 09/23/22. documented in this encounter Plan of Treatment Upcoming Encounters Date Type Department Care Team (Late st Contact Info) Description 11/08/2024 2:15 PM EDT Office Visit [facility] [address] [place] [phone] Laney Kirkpatrick MD [address] [place] [address] 11/10/2024 1:30 PM EDT Office Visit [facility] [address] [place] [address] Danis Yanez MD [address] [place] [address] 11/23/2024 10:00 AM EDT Office Visit [facility] OPTOMET[facility] [address] [place] [address] Ashley Espinal, OD [address] [place] [address] 01/08/2025 1:00 PM EDT Clinical Support [facility] [address] [place] [address] Marysol Tovar, HAWK documented as of this encounter Visit Diagnoses Diagnosis Other insomnia documented in this encounter Care Teams Security Vehicle Patrol Officer Relationship Specialty Start Date End Date Laney Kirkpatrick MD [address] [place] [phone] PCP - General Family Medicine 11/25/17 documented as of this encounter
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
--- OUTSIDE RECORDS SUMMARY | 2024-10-18 15:46 | XMS_ITS | Encounter Summary ---
Author Organization [employer] Address [address] [place] [address] Care Team Providers Care Ball Shagger Name Role Phone Laney Kirkpatrick MD Primary Care Provider + Reason for Visit * Reason Comments Med Refill Encounter Details Date Type Department Care Team ([facility] st Contact Info) Description 04/26/2024 Refill [facility] ADULT DENTAL [address] [place] [address] Basil Francois, YASH [address] [place] [address] Social History Tobacco Use Types Packs/Day Years Used Date Smoking Tobacco: Never Passive Smoke Exposure: Never Smokeless Tobacco: Never Alcohol Use Standard Drinks/Week Comments Never 0 (1 standard drink = 0.6 oz pur e alcohol) Depression Answer Date Recorded Patient Health Questionnaire-9 Score 7 11/09/2022 Housing Stability Answer Date Recorded What is your housing situation today? I have dionicio penningotn 05/27/[address] you li [...] Telephone Encounter - Basil Francois DMD - 04/26/2024 1:00 PM EDT Please follow up with Dr. Francis documented in this encounter Plan of Treatment Upcoming Encounters Date Type Department Care Team (Late st Contact Info) Description 11/08/2024 2:15 PM EDT Office Visit [facility] MEDICINE [address] [place] [phone] Laney Kirkpatrick MD [address] [place] [address] 11/10/2024 1:30 PM EDT Office Visit [facility] MEDICINE [address] [place] [address] Danis Yanez MD [address] [place] [address] 11/23/2024 10:00 AM EDT Office Visit [facility] OPTOMETRY [address] [place] [address] Ashley Espinal, SARAH [address] [place] [address] 01/08/2025 1:00 PM EDT Clinical Support [facility] MEDICINE [address] [place] [address] Marysol Tovar RN documented as of this encounter Visit Diagnoses Not on filedocumented in this encounter Additional Health Concerns Assessment Noted Time PHQ-9 Depression Total Score: 7 04/03/20 23 3:56 PM EDT documented as of this encounter Care Teams Ball Shagger Relationship Specialty Start Date End Date Laney Kirkpatrick MD [address] [place] [phone] PCP - General Family Medicine 11/25/17 documented as of this encounter
--- OUTSIDE RECORDS SUMMARY | 2024-10-18 15:46 | XMS_ITS | Encounter Summary ---
Author Organization [employer] Address [address] [facility] [address] [place] [address] Care Team Providers Care Truck Dock Material Mover Name Role Phone Laney Kirkpatrick MD Primary Care Provider + Reason for Visit * Reason Comments Med Refill Encounter Details Date Type Department Care Team ([facility] st Contact Info) Description 04/26/2024 Refill [facility] ADULT DENTAL [address] [place] [address] Heath Francis DDS [address] [place] [address] Social History Tobacco Use Types Packs/Day Years [...] 2:15 PM EDT Office Visit [facility] MEDICINE [address] [place] [address] Laney Kirkpatrick MD [address] [place] [address] 11/10/2024 1:30 PM EDT Office Visit [facility] MEDICINE [address] [place] [address] Danis Yanez MD [address] [place] [address] 11/23/2024 10:00 AM EDT Office Visit [facility] OPTOMETRY [address] [place] [address] Ashley Espinal OD [address] [place] [address] 01/08/2025 1:00 PM EDT Clinical Support [facility] MEDICINE [address] [place] [address] Marysol Tovar RN documented as of this encounter Visit Diagnoses Not on filedocumented in this encounter Additional Health Concerns Assessment Noted Time PHQ-9 Depression Total Score: 7 11/10/19 23 3:56 PM EDT documented as of this encounter Care Teams Truck Dock Material Mover Relationship Specialty Start Date End Date Laney Kirkpatrick MD [address] [place] [phone] PCP - General Family Medicine 11/25/17 documented as of this encounter
== END 2024-10-18 14:03 | disposition home or self-care (01) ==
LOC: HO.PMC 13:24
PROVIDERS: PCP Internal Medicine; Visit Provider Registered Nurse Emergency
DX: M54.16 Radiculopathy, lumbar region (principal); M47.816 Spondylosis without myelopathy or radiculopathy, lumbar region; M62.830 Muscle spasm of back
CPT/HCPCS: 99213; G2211

== ENCOUNTER → 2024-10-18 13:23 | Outpatient (BNVA) | payer OTHER, SELFPAY | PROVIDERS: PCP Internal Medicine; Visit Provider Registered Nurse Emergency | DX: M54.16 Radiculopathy, lumbar region (principal); M47.816 Spondylosis without myelopathy or radiculopathy, lumbar region; M62.830 Muscle spasm of back | CPT/HCPCS: 99212 ==

== ENCOUNTER 2024-11-08 14:42 | Outpatient (REF) | payer OTHER, SELFPAY ==
--- NOTE | ~2024-11-08 | XR_ITS ---
EXAMINATION: XR ANKLE, RIGHT CLINICAL INFORMATION: sp fall/ right ankle pain/ ? sprain COMPARISON: 07/09/2022. TECHNIQUE: AP, lateral, and mortise views of the right ankle. FINDINGS: No fracture, dislocation, or suspicious bone lesion. Normal bone mineralization. Normal alignment. Joint spaces are preserved. Mild degenerative changes in the ankle joint. A corticated small ossicle subjacent to the lateral malleolus is present, possibly sequela of old trauma. The talar dome is normal/intact. The ankle mortise is preserved. There is a small plantar and small to moderate size dorsal calcaneal spur. The subtalar joints and imaged mid foot appear normal. No significant ankle joint effusion. Soft tissues appear normal. XR/XR ankle RT min 3V IMPRESSION: 1. No acute fracture or dislocation. Electronically signed by: Spike Melgar MD 11/08/2024 03:05 PM EDT
--- OUTSIDE RECORDS SUMMARY | 2024-11-08 17:19 | XMS_ITS | Encounter Summary ---
Author Organization [employer] Address [address] [facility] 7t [place] [address] Care Team Providers Care Finished Hardware Erector Name Role Phone Laney Kirkpatrick MD Primary Care Provider + Reason for Visit * Reason Onset Date Comments Med Refill 11/07/2024 Encounter Details Date Type Department Care Team ([facility] st Contact Info) Description 11/07/2024 Refill [facility] MEDICINE [address] [place] [address] Laney Kirkpatrick MD [address] [place] [address] Cervical radiculopathy due to degenerative joint disease [...] Answer Date Recorded Patient Health Questionnaire-2 Score 2 11/08/2024 Internet Access Answer Date Recorded Internet Access [...] encounter Miscellaneous Notes * Telephone Encounter - Anabella Casey RN - 11/08/2024 8:59 AM EDT Tavo reviewed, pt. Last picked up 28 day supply oxycodone 10/11/24, due today 11/08/24 * Telephone Encounter - Viridiana Ambrose - 11/07/2024 2:16 PM EDT TC from pt requesting medication refill. Medications needing refill : oxyCODONE (Roxicodone) 10 MG immediate release tablet To be sent to: [facility]/pharmacy #[id number] [place], [place] - [address] [place] [address] documented in this encounter Plan of Treatment Upcoming Encounters Date Type Department Care Team (Late st Contact Info) Description 11/10/2024 1:30 PM EDT Office Visit [facility] MEDICINE [address] [place], [place] [phone] Danis Yanez MD [address] [place], [place] [phone] 11/23/2024 10:00 AM EDT Office Visit [facility] OPTOMETRY [address] [place], [place] [phone] Ashley Espinal, OD [address] [place] [address] 12/25/2024 2:15 PM EDT Office Visit [address] [address] Laney Kirkpatrick MD [address] [place] [address] 01/08/2025 1:00 PM EDT Clinical Support [address] [address] Marysol Tovar RN documented as of this encounter Visit Diagnoses Diagnosis Cervical radiculopathy due to degenerative joint disease of spine documented in this encounter Additional Health Concerns Assessment Noted Time PHQ-9 Depression Total Score: 7 11/10/19 23 3:56 PM EDT documented as of this encounter Care Teams Finished Hardware Erector Relationship Specialty Start Date End Date Laney Kirkpatrick MD [address] [place] [phone] PCP - General Family Medicine 11/25/17 documented as of this encounter
--- OUTSIDE RECORDS SUMMARY | 2024-11-08 17:19 | XMS_ITS | Encounter Summary ---
Author Organization [employer] Address [address] [facility] 7t [place] [address] Care Team Providers Care Director Targeted Marketing Name Role Phone Laney Kirkpatrick MD Primary Care Provider + Reason for Visit * Reason Onset Date Comments Chart prep 11/07/2024 Encounter Details Date Type Department Care Team ([facility] Contact Info) Description 11/07/2024 Telephone [facility] MEDICINE [address] [place], [place] [phone] Laney Kirkpatrick MD [address] [place], [place] [phone] Chart prep Social History Tobacco Use Types Packs/Day Years [...] encounter Miscellaneous Notes * Telephone Encounter - Faye Perez MA - 11/07/2024 1:43 PM EDT Chart Prep Labs: done Images: done Vaccines due: yes Referrals: complete Screenings: colonoscopy Overdue care gaps: PHQ-9 documented in this encounter Plan of Treatment Upcoming Encounters Date Type Department Care Team (Late st Contact Info) Description 11/10/2024 1:30 PM EDT Office Visit [facility] MEDICINE [address] [place] [address] Danis Yanez MD [address] [place] [address] 11/23/2024 10:00 AM EDT Office Visit [facility] OPTOMETRY [address] [place] [address] Ashley Espinal, OD [address] [place] [address] 12/25/2024 2:15 PM EDT Office Visit [facility] MED[facility]INE [address] [place] [address] Laney Kirkpatrick MD [address] [place] [address] 01/08/2025 1:00 PM EDT Clinical Support [facility] [address] [place] [address] Marysol Tovar RN documented as of this encounter Visit Diagnoses Not on filedocumented in this encounter Additional Health Concerns Assessment Noted Time PHQ-9 Depression Total Score: 7 11/10/19 23 3:56 PM EDT documented as of this encounter Care Teams Director Targeted Marketing Relationship Specialty Start Date End Date Laney Kirkpatrick MD [address] [place] [address] PCP - General Family Medicine 11/25/17 documented as of this encounter
--- OUTSIDE RECORDS SUMMARY | 2024-11-08 17:19 | XMS_ITS | Encounter Summary ---
Author Organization [facility] Address [address] [place] [address] 7t [place] [address] Care Team Providers Care Mechanical Press Operator Name Role Phone Laney Kirkpatrick MD Primary Care Provider + Reason for Visit * Reason Comments Med Change Request Encounter Details Date Type Department Care Team ([facility] Contact Info) Description 04/08/2023 Refill [facility] [address] [place] [address] [phone] Laney Kirkpatrick MD [address] [place] [address] [phone] Lumbar disc disease with radiculopathy Social History [...] Upcoming Encounters Date Type Department Care Team ([facility] Contact Info) Description 11/10/2024 1:30 PM EDT Office Visit [facility] [address] [place] [address] [phone] Danis Yanez MD [address] [place] [address] 11/23/2024 10:00 AM EDT Office Visit [facility] OPTOMETRY [address] [place] [address] Ashley Espinal OD [address] [place] [address] 12/25/2024 2:15 PM EDT Office Visit [facility] [address] [place] [address] Laney Kirkpatrick MD [address] [place] [address] 01/08/2025 1:00 PM EDT Clinical Support [facility] [address] [place] [address] Marysol Tovar RN documented as of this encounter Visit Diagnoses Diagnosis Lumbar disc disease with radiculopathy documented in this encounter Additional Health Concerns Assessment Noted Time PHQ-9 Depression Total Score: 7 11/10/19 23 3:56 PM EDT documented as of this encounter Care Teams Mechanical Press Operator Relationship Specialty Start Date End Date Laney Kirkpatrick MD [address] [place] [phone] PCP - General Family Medicine 11/25/17 documented as of this encounter
--- OUTSIDE RECORDS SUMMARY | 2024-11-08 17:19 | XMS_ITS | Encounter Summary ---
Author Organization [facility] Address [address] [place] [address] 7t [place] [address] Care Team Providers Care Mask Layout Designer Name Role Phone Laney Kirkpatrick MD Primary Care Provider + Reason for Visit * Reason Comments Med Refill Encounter Details Date Type Department Care Team ([facility] Contact Info) Description 03/12/2023 Refill [facility] MED[facility]INE [address] [place] [address] [phone] Laney Kirkpatrick MD [address] [place] [address] [phone] Cervical radiculopathy due to degenerative joint disease [...] Upcoming Encounters Date Type Department Care Team ([facility] Contact Info) Description 11/10/2024 1:30 PM EDT Office Visit [facility] MED[facility] [address] [place] [address] Danis Yanez MD [address] [place] [address] [place] [address] 11/23/2024 10:00 AM EDT Office Visit [facility] OPTOMETRY [address] [place] [address] Ashley Espinal, OD [address] [place] [address] 12/25/2024 2:15 PM EDT Office Visit [facility] MED[facility] [address] [place] [address] Laney Kirkpatrick MD [address] [place] [address] 01/08/2025 1:00 PM EDT Clinical Support [facility] [address] [place] [address] [phone] Marysol Tovar RN documented as of this encounter Visit Diagnoses Diagnosis Cervical radiculopathy due to degenerative joint disease of spine Anxiety state Anxiety state, unspecified documented in this encounter Additional Health Concerns Assessment Noted Time PHQ-9 Depression Total Score: 7 11/10/19 23 3:56 PM EDT documented as of this encounter Care Teams Mask Layout Designer Relationship Specialty Start Date End Date Laney Kirkpatrick MD [address] [place] [address] [phone] PCP - General Family Medicine 11/25/17 documented as of this encounter
--- OUTSIDE RECORDS SUMMARY | 2024-11-08 17:19 | XMS_ITS | Encounter Summary ---
Author Organization [employer] Address 75 [facility] 7t [place] [address] Care Team Providers Care Inside Sales Representative Name Role Phone Laney Kirkpatrick MD Primary Care Provider + Reason for Visit * Reason Onset Date Comments Med Refill 09/06/2024 Encounter Details Date Type Department Care Team ([facility] Contact Info) Description 09/06/2024 Telephone [facility] MED[facility]INE 230 [place], [place] [phone] Laney Kirkpatrick MD [address] [place], [place] [phone] Med Refill Social History Tobacco Use Types [...] Telephone Encounter - Shadia Perdomo LPN - 09/06/2024 9:36 AM EST Medication should have 2 refills left. * Telephone Encounter - Reny Olvera - 09/06/2024 9:31 AM EST TC from pt requesting medication refill. Medications needing refill : naloxone (Narcan) 4 mg/0.1 mL nasal spray To be sent to: [facility]/pharmacy #[id number] [place] [address] documented in this encounter Plan of Treatment Upcoming Encounters Date Type Department Care Team (Late st Contact Info) Description 11/10/2024 1:30 PM EDT Office Visit [facility] MEDICINE [address] [place], [place] [phone] Danis Yanez MD [address] [place], [place] [phone] 11/23/2024 10:00 AM EDT Office Visit [facility] OPTOMETRY [address] [place], [place] [phone] Ashley Espinal, OD [address] [place], [place] [phone] 12/25/2024 2:15 PM EDT Office Visit [facility] MEDICINE [address] [place] [address] Laney Kirkpatrick MD [address] [place] [address] 01/08/2025 1:00 PM EDT Clinical Support [facility] [address] [place] [phone] Marysol Tovar, HAWK documented as of this encounter Visit Diagnoses Diagnosis Cervical radiculopathy due to degenerative joint disease of spine documented in this encounter Additional Health Concerns Assessment Noted Time PHQ-9 Depression Total Score: 7 11/10/19 23 3:56 PM EDT documented as of this encounter Care Teams Inside Sales Representative Relationship Specialty Start Date End Date Laney Kirkpatrick MD [address] [place] [phone] PCP - General Family Medicine 11/25/17 documented as of this encounter
--- OUTSIDE RECORDS SUMMARY | 2024-11-08 17:19 | XMS_ITS | Encounter Summary ---
Author Organization [employer] Address 75 [facility] 7t [place] [address] Care Team Providers Care Air Pollution Inspector Name Role Phone Laney Kirkpatrick MD Primary Care Provider + Reason for Visit * Reason Comments Med Refill Encounter Details Date Type Department Care Team ([facility] st Contact Info) Description 04/26/2024 Refill [facility] ADULT DENTAL [address] [place] [address] Heath Francis DDS [address] [place] [address] Social History Tobacco Use Types Packs/Day Years [...] EDT Office Visit [facility] MEDICINE [address] [place] [address] Danis Yanez MD 230 [place] [address] 11/23/2024 10:00 AM EDT Office Visit [facility] OPTOMETRY [address] [place] [address] Ashley Espinal, OD [address] [place] [address] 12/25/2024 2:15 PM EDT Office Visit [facility] MEDICINE [address] [place] [address] Laney Kirkpatrick MD [address] [place] [address] 01/08/2025 1:00 PM EDT Clinical Support [address] [address] Marysol Tovar RN documented as of this encounter Visit Diagnoses Not on filedocumented in this encounter Additional Health Concerns Assessment Noted Time PHQ-9 Depression Total Score: 7 11/10/19 23 3:56 PM EDT documented as of this encounter Care Teams Air Pollution Inspector Relationship Specialty Start Date End Date Laney Kirkpatrick MD [address] [place] [phone] PCP - General Family Medicine 11/25/17 documented as of this encounter
--- OUTSIDE RECORDS SUMMARY | 2024-11-08 17:19 | XMS_ITS | Encounter Summary ---
Author Organization [employer] Address [address] [facility] [address] 7t [place] [address] Care Team Providers Care Certified Rehabilitation Counselor Name Role Phone Laney Kirkpatrick MD Primary Care Provider + Encounter Details Date Type Department Care Team (Latest Contact Info) Description 11/08/2024 Travel Social History Tobacco Use Types Packs/Day [...] Description 11/10/2024 1:30 PM EDT Office Visit [facility] MEDICINE 230 [place] [address] Danis Yanez MD [address] [place] [address] 11/23/2024 10:00 AM EDT Office Visit [facility] OPTOMETRY 267 [place] [address] Ashley Espinal OD [address] [place] [address] 12/25/2024 2:15 PM EDT Office Visit [facility] MED[facility] [address] [place] [address] Laney Kirkpatrick MD [address] [place] [address] 01/08/2025 1:00 PM EDT Clinical Support [facility] [address] [place] [address] Marysol Tovar RN documented as of this encounter Visit Diagnoses Not on filedocumented in this encounter Additional Health Concerns Assessment Noted Time PHQ-9 Depression Total Score: 7 11/10/19 23 3:56 PM EDT documented as of this encounter Care Teams Certified Rehabilitation Counselor Relationship Specialty Start Date End Date Laney Kirkpatrick MD [address] [place] [address] PCP - General Family Medicine 11/25/17 documented as of this encounter
--- OUTSIDE RECORDS SUMMARY | 2024-11-08 17:19 | XMS_ITS | Encounter Summary ---
Author Organization [employer] Address [address] [facility] [address] 7t [place] [address] Care Team Providers Care Client Finance Analyst Name Role Phone Laney Kirkpatrick MD Primary Care Provider + Encounter Details Date Type Department Care Team ([facility] st Contact Info) Description 11/08/2024 Telephone [facility] 230 [place] [address] Laney Kirkpatrick MD [address] [place] [address] Social History Tobacco Use Types Packs/Day Years Used Date Smoking Tobacco: Never Passive Smoke Exposure: Never Smokeless Tobacco: Never Alcohol Use Standard Drinks/Week Comments Never 0 (1 standard drink = 0.6 oz pur e alcohol) Depression Answer Date Recorded Patient Health Questionnaire-9 Score 7 11/09/2022 Housing Stability Answer Date Recorded What is your housing situation today? I have dionicio sing 09/04/[address] you li [...] Telephone Encounter - Faye Perez MA - 11/08/2024 2:38 PM EDT Tc to pt to have pt picker / packer exercise documents PCP has left for her. documented in this encounter Plan of Treatment Upcoming Encounters Date Type Department Care Team (Late st Contact Info) Description 11/10/2024 1:30 PM EDT Office Visit [facility] [address] [place] [address] Danis Yanez MD [address] [place] [address] 11/23/2024 10:00 AM EDT Office Visit [facility] OPTOM[facility] [address] [place] [address] Ashley Espinal, OD [address] [place] [address] 12/25/2024 2:15 PM EDT Office Visit [facility] [address] [place] [address] Laney Kirkpatrick MD [address] [place] [address] 01/08/2025 1:00 PM EDT Clinical Support [facility] [address] [place] [address] Marysol Tovar, RN documented as of this encounter Visit Diagnoses Not on filedocumented in this encounter Additional Health Concerns Assessment Noted Time PHQ-9 Depression Total Score: 7 11/10/19 23 3:56 PM EDT documented as of this encounter Care Teams Client Finance Analyst Relationship Specialty Start Date End Date Laney Kirkpatrick MD [address] [place] [address] PCP - General Family Medicine 11/25/17 documented as of this encounter
--- OUTSIDE RECORDS SUMMARY | 2024-11-08 17:19 | XMS_ITS | Encounter Summary ---
Author Organization [employer] Address [address] [facility] 7t [place] [address] Care Team Providers Care Snack Bar Cashier Name Role Phone Laney Kirkpatrick MD Primary Care Provider + Reason for Visit * Reason Onset Date Comments Med Refill 01/14/2023 Encounter Details Date Type Department Care Team ([facility] Contact Info) Description 01/14/2023 Telephone [facility] MEDICINE [address] [place], [place] [phone] Laney Kirkpatrick MD [address] [place] [address] Med Refill Social History Tobacco Use Types [...] 1:30 PM EDT Office Visit [facility] MED[facility] [address] [place] [address] Danis Yanez MD [address] [place] [address] 11/23/2024 10:00 AM EDT Office Visit [facility] OPTOMETRY [address] [place] [address] Ashley Espinal, OD [address] [place] [address] 12/25/2024 2:15 PM EDT Office Visit [facility] MED[facility]INE [address] [place] [address] Laney Kirkpatrick MD [address] [place] [address] 01/08/2025 1:00 PM EDT Clinical Support [facility] MED[facility]INE [address] [place] [address] Marysol Tovar, RN documented as of this encounter Visit Diagnoses Not on filedocumented in this encounter Additional Health Concerns Assessment Noted Time PHQ-9 Depression Total Score: 7 11/10/19 23 3:56 PM EDT documented as of this encounter Care Teams Snack Bar Cashier Relationship Specialty Start Date End Date Laney Kirkpatrick MD [address] [place] [phone] PCP - General Family Medicine 11/25/17 documented as of this encounter
--- OUTSIDE RECORDS SUMMARY | 2024-11-08 17:19 | XMS_ITS | Clinical Summary ---
Author Organization [employer] Address [address] [facility] 7t [place] [address] Care Team Providers Care Category Director Name Role Phone Laney Kirkpatrick MD Primary [...] HOURS NEEDED 30 capsule 09/04/19 25 Active acetaminophen (Tylenol) 500 MG tabletIndication [...] morning. 90 tablet 1 09/21/19 25 Active cyclobenzaprine (Flexeril) 10 MG tabletIndication s:Left arm pain,Right hip pain TAKE 1 TABLET BY MOUTH TWICE A DAY IF NEEDED FOR MUSCLE SPASMS 60 tablet 10/11/19 25 Active LORazepam (Ativan) 0.5 MG tabletIndication s:Anxiety state TAKE 1 TABLET BY MOUTH TWICE A DAY NEEDED IN THE MORNING AND AT BEDTIME FOR ANXIETY 56 tablet 10/26/19 25 Active zolpidem (Ambien) 10 MG tabletIndication s:Other insomnia TAKE 1 TABLET BY MOUTH EVERYDAY AT BEDTIME 28 tablet 11/08/19 25 Active oxyCODONE (Roxicodone) 10 MG immediate release tabletIndication s:Cervical radiculopathy due to degenerative joint disease of spine Take 1 tablet (10 mg) by mouth every 6 (six) hours if needed for severe pain for up to 28 days. 112 tablet 11/09/19 25 2024 Active cyclobenzaprine (Flexeril) 10 MG tabletIndication s:Left arm pain,Right hip pain TAKE 1 TABLET BY MOUTH TWICE A DAY IF NEEDED FOR MUSCLE SPASMS 60 tablet 09/04/19 25 2024 Discontinued LORazepam (Ativan) 0.5 MG tabletIndication s:Anxiety state TAKE 1 TABLET BY MOUTH TWICE A DAY NEEDED IN THE MORNING AND AT BEDTIME FOR ANXIETY Do not start before September 05, 2024. 14 tablet 09/05/19 25 2024 Discontinued(R eorder (will not trigger notification to Pharmacy)) zolpidem (Ambien) 10 MG tabletIndication s:Other insomnia TAKE 1 TABLET BY MOUTH EVERYDAY AT BEDTIME 28 tablet 10/06/19 25 2024 Discontinued(R eorder (will not trigger notification to Pharmacy)) oxyCODONE (Roxicodone) 10 MG immediate release tabletIndication s:Cervical radiculopathy due to degenerative joint disease of spine Take 1 tablet (10 mg) by mouth every 6 (six) hours if needed for severe pain for up to 28 days. Do not start before October 11, 2024. 112 tablet 10/12/19 25 2024 Discontinued(R eorder (will not trigger notification to Pharmacy)) Active Problems Problem Noted Date Diagnosed Date Sprain of anterior talofibular ligament of right ankle 11/08/2024 Assessment & Plan (11/08/2024 4:32 PM EDT): Advised to use ankle brace to complete 2 to 4 weeks especially for ambulation and use her cane. I gave her information regarding stretching and exercises for her right ankle. Advised to put ice prior to exercises and take Tylenol or meloxicam as needed. She continue oxycodone same dose. Reconsult as needed if symptoms do not improve after 4 weeks Poor appetite 11/08/2024 Assessment & Plan (11/08/2024 4:34 PM EDT): She has gained weight . It is unclear if related to depression or other GI conditions. She declines to be referred her to GI for EGD or colonoscopy. We discussed about having a small unfractioned meals with protein portion on each meal. She agreed for nutrition referral Order labs and remind her to get Cologuard and follow-up with me in 2 to 3 months Chronic periodontitis 09/20/2024 Dental abscess 09/20/2024 Hand [...] to be referred to Colonoscopy, agreed to Cologfransisco. Drug-induced constipation 03/23/2023 Other insomnia 03/23/2023 Pure [...] time. Will FU at this time. Overweight 09/23/2022 Assessment & Plan (11/08/2024 4:35 PM EDT): Discussed re weight reduction options including exercise, life style modifications, diet. Recommended to decrease soda and sugary beverage consumption, increase protein intake with meals (at least 1 portion of protein with each meal) to assist with satiety, increase dietary fiber Recommended at least 150 min/week of moderate intensity exercise. Refer to dietitian Assessment & Plan (09/23/2022 11:57 AM EST): [...] (impaired fasting glucose) 12/08/2017 Assessment & Plan (11/08/2024 4:34 PM EDT): Check labs I have discussed with patient regarding increasing physicial activity and decrease calorie intake. Refer to dietitian FU in 6 months Assessment & Plan (11/09/2022 4:34 PM EDT): [...] (04/13/2024 2:03 PM EDT): Refer again to [facility] pain clinic. Continue Oxycodone 10 mg [...] if lost or stolen. Follow up with [employer] nurse, she is do for Oxycodone refill next week. 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 triggered by recent falls Order Xrays Take tylenol _+ flexeril, declined PT now, can reconsult prn and I will refer to PT FU in Assessment & Plan (09/23/2022 11:57 AM EST): [...] Encounters Date Type Department Care Team Description 11/08/2024 2:15 PM EDT Office Visit [facility] [address] [facility] [place] [address] Laney Kirkpatrick MD Poor appetite (Primary Dx); Sprain of anterior talofibular ligament of right ankle, initial encounter; Overweight; IFG (impaired fasting glucose); Dietary counseling; Exercise counseling; Screening for colon cancer 11/08/2024 Telephone [facility] [address] [facility] [place] [address] Laney Kirkpatrick MD 11/08/2024 Travel 11/07/2024 Refill [facility] [address] [place] [address] Laney Kirkpatrick MD Other insomnia 11/07/2024 Refill [facility] [address] [facility] [address] Laney Kirkpatrick MD Cervical radiculopathy due to degenerative joint disease of spine 11/07/2024 Telephone [facility] [address] [facility] [place] [address] Laney Kirkpatrick MD Chart prep 10/24/2024 Refill [facility] [address] [place] [address] Laney Kirkpatrick MD Anxiety state 10/10/2024 Refill [facility] [address] [place] [address] Laney Kirkpatrick MD Left arm pain; Right hip pain 10/06/2024 Refill [facility] [address] [facility] [place] [address] Laney Kirkpatrick MD Other insomnia 10/06/2024 Refill [facility] [address] [place] [address] Laney Kirkpatrick MD Cervical radiculopathy due to degenerative joint disease of spine 09/21/2024 9:30 AM EST Clinical Support [facility] [address] [place] [address] Marysol Tovar, executive casino host low back pain with sciatica, sciatica laterality unspecified, unspecified back pain laterality (Primary Dx) 09/21/2024 Refill [facility] [address] [place] [address] Marysol Tovar RN Chronic rhinitis 09/21/2024 Travel 09/20/2024 1:30 PM EST Office Visit [facility] [address] [place] [phone] Pawel Pate DDS Chronic periodontitis (Primary Dx); Dental abscess; Retained dental root 09/15/2024 Telephone [facility] [address] [place] [phone] Laney Kirkpatrick MD No Show 09/11/2024 Refill [facility] [address] [place] [phone] Laney Kirkpatrick MD Cervical radiculopathy due to degenerative joint disease of spine 09/06/2024 Telephone [facility] [address] [place] [phone] Laney Kirkpatrick MD Med Refill 09/04/2024 Refill [facility] [address] [place] [phone] Laney Kirkpatrick MD Other insomnia; Left arm pain; Right hip pain 09/04/2024 Refill [facility] [address] [place] [phone] Laney Kirkpatrick MD Cervical radiculopathy due to degenerative joint disease of spine; Anxiety state 09/04/2024 Patient Outreach [facility] [address] [place] [phone] Laney Kirkpatrick MD Pre-visit Planning (SDOH screening negative and Tobacco screening negative) 08/16/2024 Telephone [facility] [address] [place] [phone] Laney Kirkpatrick MD Nurse Triage from Last 3 Months Immunizations Name Administration [...] Sign Reading Time Taken Comments Blood Pressure 128/79 11/08/2024 2:03 PM EDT Pulse 100 11/08/2024 2:03 PM EDT Temperature 35.7 ??C (96.2 ??F) 11/08/2024 2:03 PM ED T Respiratory Rate 20 11/08/2024 2:03 PM EDT Oxygen Saturation 100% 11/08/2024 2:03 PM EDT Inhaled Oxygen Concentration - - Weight 74.1 kg (163 lb 6 oz) 11/08/2024 2:03 PM EDT Height 157.5 cm (5' 2 ) 11/08/2024 2:03 PM EDT Body Mass Index 29.88 11/08/2024 2:03 PM EDT Plan of Treatment Upcoming Encounters Date Type Department Care Team (Late st Contact Info) Description 11/10/2024 1:30 PM EDT Office Visit [facility] [address] [place] [phone] Danis Yanez MD [address] [place] [phone] 11/23/2024 10:00 AM EDT Office Visit [facility] OPTOM[facility] [address] [place] [address] Ashley Espinal, OD [address] [place] [address] 12/25/2024 2:15 PM EDT Office Visit [facility] [address] [place] [phone] Laney Kirkpatrick MD [address] [place] [phone] 01/08/2025 1:00 PM EDT Clinical Support [facility] [address] [place] [phone] Marysol Tovar, HAWK Health Maintenance Due Date Last Done Comments [...] 02/23/20 13, 06/22/2011, 07/10/2009, Additional history exists COVID-19 Vaccine ( season) 2024 12/25/2020, 12/04/2020 Influenza Vaccine (#1) 2024 Mammogram 06/05/2025 06/05/2024, 05/10, 05/25/2022, Additional history exists SDOH Screening 09/04/2025 09/04/2024 Depression Screening 11/08/2025 11/08/2024, 11/10/19 Tobacco Screening 11/08/2025 11/08/2024 HPV/Cotest 05/28/2026 05/28/2021 Pap Smear 05/28/2026 05/28/2021 [...] Procedure Name Priority Date/Time Associated Diagnosis Comments XR ANKLE 3+ VIEWS RIGHT Routine 11/08/2024 2:43 PM EDT Sprain of anterior talofibular ligament of right ankle, initial encounter POCT BAUDILIO-14 URINE DRUG SCREEN Routine 09/21/2024 [...] Recently Relevant to Health Maintenance Results * XR Ankle 3+ Views Right (11/08/2024 2:43 PM EDT) Anatomical Region Laterality Modality Lower Extremities, Ankle Right Radiogr aphic Imaging 11/08/2024 2:43 PM EDT Narrative 11/08/2024 3:07 PM EDT ?[facility] [facility] ?[address] ?[place] [address] ?XRay Report ? Signed ? Patient: Aldo,Ivett Y ?MR#: [id number] ?? [id number] ? : 1965 ?Acct:[id number] ? Age/Sex: 59 / F ?ADM Date: 11/08/24 ? Loc: HO.HHCX ? Attending Dr: Laney Kirkpatrick MD ? Ordering Physician: Laney Kirkpatrick MD ?? Date of Service: 11/08/24 ?? Procedure(s): XR ankle RT min 3V ?? Accession Number(s): [id number] ? cc: Laney Kirkpatrick MD ? EXAMINATION: ?? XR ANKLE, RIGHT ? CLINICAL INFORMATION: ?? sp fall/ right ankle pain/ ? sprain ? COMPARISON: ?? 07/09/2022. ? TECHNIQUE: ?? AP, lateral, and mortise views of the right ankle. ? FINDINGS: ?? No fracture, dislocation, or suspicious bone lesion. Normal bone ?? mineralization. ?? Normal alignment. ?? Joint spaces are preserved. Mild degenerative changes in the ankle ?? joint. ?? A corticated small ossicle subjacent to the lateral malleolus is ?? present, possibly sequela of old trauma. ?? The talar dome is normal/intact. The ankle mortise is preserved. ?? There is a small plantar and small to moderate size dorsal calcaneal ?? spur. ?? The subtalar joints and imaged mid foot appear normal. ? No significant ankle joint effusion. ? Soft tissues appear normal. ? XR/XR ankle RT min 3V ?? IMPRESSION: ?? 1. No acute fracture or dislocation. ? Electronically signed by: ??Spike Melgar MD ??11/08/2024 03:05 PM EDT RP ? Dictated By: ?Spike Melgar MD ? Signed By: ?<Electronically signed by Spike Melgar MD in OV> ?11/08/24 1505 ? DD/ 1443 ? TD/TT: 11/08/24 1453 ? Multicut Line Operator: ? Procedure Note Jerica Chin - 11/08/2024 [facility] [address] [place] [address] XRay Report Signed Patient: Ivett Carlson YMR#: [id number] 729 : 1965Acct:[id number] Age/Sex: 59 / FADM Date: 11/08/24 Loc: HO.HHCX Attending Dr: Laney Kirkpatrick MD Ordering Physician: Laney Kirkpatrick MD Date of Service: 11/08/24 Procedure(s): XR ankle RT min 3V Accession Number(s): [id number] cc: Laney Kirkpatrick MD EXAMINATION: XR ANKLE, RIGHT CLINICAL INFORMATION: sp fall/ right ankle pain/ ? sprain COMPARISON: 07/09/2022. TECHNIQUE: AP, lateral, and mortise views of the right ankle. FINDINGS: No fracture, dislocation, or suspicious bone lesion. Normal bone mineralization. Normal alignment. Joint spaces are preserved. Mild degenerative changes in the ankle joint. A corticated small ossicle subjacent to the lateral malleolus is present, possibly sequela of old trauma. The talar dome is normal/intact. The ankle mortise is preserved. There is a small plantar and small to moderate size dorsal calcaneal spur. The subtalar joints and imaged mid foot appear normal. No significant ankle joint effusion. Soft tissues appear normal. XR/XR ankle RT min 3V IMPRESSION: 1. No acute fracture or dislocation. Electronically signed by: pSike Melgar MD 11/08/2024 03:05 PM EDT Dictated By: Spike Melgar MD Signed By: <Electronically signed by Spike Melgar MD in OV> 11/08/24 1505 DD/ 1443 TD/TT: 11/08/24 1453 Multicut Line Operator: us Laney Kirkpatrick MD IMG XR PROCEDURES Final Result * POCT BAUDILIO-14 Urine Drug Screen (09/21/2024 9:53 AM EST) Benzodiazepines Screen, Urine Positive TCA, Urine Positive Oxycodone Screen, Urine Positive Urine Urine specimen obtained by clean catch procedure / Unknown 09/21/2024 9:53 AM EST Narrative Marysol Tovar RN - 09/21/2024 9:53 AM EST UTOX cup Lot#[id number] Exp. 03/28/26 Internal Pass Control us Laney Kirkpatrick MD POINT OF CARE TEST ENTER /EDIT ORDERABLES Final Result * BI Mammogram Screening Tomosynthesis Bilateral (06/05/2024 1:00 PM EDT) Anatomical Region Laterality Modality Breast Bilateral Mammography 06/05/2024 1:00 PM EDT Narrative 06/13/2024 3:12 PM EST ? [facility] ? [address] ?[place], [place] [address] ? Mammography Report ? Signed ? Patient: Aldo,Ivett Y ?MR#: [id number] ?? [id number] ? : 1965 ?Acct:[id number] ? Age/Sex: 58 / F ?ADM Date: 06/05/24 ? Loc: HO.MAMMO ? Attending Dr: Laney Kirkpatrick MD ? Ordering Physician: Laney Kirkpatrick MD ?Results: 1Ne ?? gative ? Date of Service: 06/05/24 ?Follow Up: 1 Year From Orig ?? inal Mammogram ? Procedure(s): MM tomosynthesis screening BI ?? Accession Number(s): [id number] ? cc: Laney Kirkpatrick MD ? EXAMINATION: [...] DD/ 1300 ? TD/TT: 06/05/24 1315 ? Multicut Line Operator: ? Procedure Note Elsy, Jerica - 06/13/2024 [facility] [address] [place] [address] [place] [address] Mammography Report Signed Patient: Ivett Carlson YMR#: [id number] 729 : 1965Acct:[id number] Age/Sex: 58 / FADM Date: 06/05/24 Loc: FRANCIS Attending Dr: Laney Kirkpatrick MD Ordering Physician: Laney Kirkpatrickesults: 1Ne gative Date of Service: 06/05/24Follow Up: 1 Year From Orig inal Mammogram Procedure(s): MM tomosynthesis screening BI Accession Number(s): [id number] cc: Laney Kirkpatrick MD EXAMINATION: MM SCREENING [...] by: Eva Rosales DO 06/13/2024 03:09 PM [facility] Dictated By: Eva Rosales DO Signed By: <Electronically signed by Eva Rosales DO in OV> 06/13/24 1509 DD/ 1300 TD/TT: 06/05/24 1315 Multicut Line Operator: Laney Kirkpatrick MD IMG BI PROCEDURES Final Result * Hepatitis Panel, General (04/13/2024 1:15 PM EDT) Hepatitis A IgM Nonreactive Nonreactive [facility] Comment:IgM antibodies to WISE V not detected; does not exclude earlyacute or recovered HAV infection. ~Hepatitis B Surface Antibody REACTIVE Nonreactive [facility] Comment:REACTIVE: > 11.99 mI U/mL Hepatitis B Core Antibody Reactive Nonreactive [facility] Comment:Presumptive evidence of anti-HBc. Hepatitis C Antibody Nonreactive Nonreactive [facility] Comment:Antibodies to HCV no t detected; does not exclude early acuteHCV infection. Hepatitis B Surface Ag Negative Negative [facility] Blood 04/13/2024 1:15 PM EDT 04/13/2024 4:22 PM EDT Laney Kirkpatrick MD LAB BLOOD ORDERABLES Fin al Result Performing Organization Address [facility] [employer] Phone Number [facility] [address] [place] [phone] * HIV-1/2 Antigen and Antibodies, Fourth Generation, with Reflexes (04/13/2024 1:15 PM EDT) HIV AB/AG Nonreactive Nonreactive [facility] Comment:HIV-1 p24 Ag and/or HIV-1/HIV-2 Ab not detected.A test result that is nonreactive does not exclude thepossibility of exposure to or infection with HIV-1 and/orHIV-2. Nonreactive results in this assay for individualswith prior exposure to HIV-1 and/or HIV-2 may be due toantigen and antibody levels that are below the limit ofdetection of this assay.The [employer] HIV Ag/Ab Combo assay result andsupplemental assay results should be interpreted inconjunction with the patient's clinical presentation,history and other laboratory results. If the results areinconsistent with clinical evidence, additional testing issuggested to confirm the result. Blood Venous blood specimen / Unknown 04/13/2024 1:15 PM EDT 04/13/2024 4:22 PM EDT Laney Kirkpatrick MD LAB BLOOD ORDERABLES Fin al Result Performing Organization Address [facility] [employer] Phone Number [facility] [address] [place] [phone] * THINPREP TIS PAP AND HPV mRNA E6/E7, CT/NG, TRICH (05/28/2021 12:00 AM EDT) Pathologist [facility] Chlamydia trachomatis RNA, TMA, Urogenital NOT DETECTED NOT DETECTED [facility] Clinical Information: None given [facility] COMMENT SEE COMMENT [facility] Comment: The analytical performance characteristics of this assay, when used to test SurePath(TM) specimens have been determined by [employer]. The modifications have not been cleared or approved by the FDA. This assay has been validated pursuant to the CLIA regulations and is used for clinical purposes. ?? For additional information, please refer to https://Syrenaica.FinanzCheck/faq/XZI977 (This link is being provided for information/ [...] has been evaluated with computer assisted technology. [facility] Fish Net Stringer: SEE COMMENT [facility] Comment: RMM, CT(ASCP) CT screening location: [address] ??[phone] HPV nRNA E6/E7 Not Detected Not Detected [facility] Comment: Methodology: Treating And Pumping Supervisor-Mediated Amplification This assay detects E6/E7 viral messenger RNA (mRNA) from 14 high-risk HPV types (16,18,31,33,35,39,45,51,52,56,58,59,66,68). ? The analytical performance characteristics of this assay have been determined by [employer]. The modifications have not been cleared or approved by the FDA. This assay has been validated pursuant to the CLIA regulations and is used for clinical purposes. ?? For additional information, please refer to http://[employer].FinanzCheck/faq/QPX087h7 (This link if provided for information/ educational purposes only.) Interpretation/Res ult: SEE COMMENT [facility] Comment: Negative for intraepithelial lesion [...] TMA, PAP Vial NOT DETECTED NOT DETECTED [facility] Comment: The analytical performance characteristics of this assay have been determined by [employer]. The modifications have not been cleared or approved by the FDA. This assay has been validated pursuant to the CLIA regulations and is used for clinical purposes. ?? For additional information, please refer to http://education.FinanzCheck/ faq/Trichomonastma (This link is being provided for information/ educational purposes only.) ?? 05/28/2021 Laney Kirkpatrick MD LAB PATHOLOGY ORDERABLES Final Result [facility] [address] from Last 3 Months or Most Recently Relevant to Health Maintenance Insurance [facility] Care Teams Category Director Relationship Specialty Start Date End Date Laney Kirkpatrick MD [address] [place] [phone] PCP - General Family Medicine 11/25/17
--- OUTSIDE RECORDS SUMMARY | 2024-11-08 17:19 | XMS_ITS | Encounter Summary ---
Author Organization [employer] Address [address] [facility] 7t [place] [address] Care Team Providers Care Flare Breaker Name Role Phone Laney Kirkpatrick MD Primary Care Provider + Reason for Visit * Reason Comments Med Change Request Encounter Details Date Type Department Care Team ([facility] st Contact Info) Description 07/18/2023 Refill [facility] [address] [place], [place] [phone] Shadia Nieves DO [address] [place] [address] Panic disorder without agoraphobia Social History Tobacco [...] Description 11/10/2024 1:30 PM EDT Office Visit [facility] [address] [place] [phone] Danis Yanez MD [address] [place] [phone] 11/23/2024 10:00 AM EDT Office Visit [facility] OPTOMETRY [address] [place] [phone] Ashley Espinal, OD [address] [place] [address] 12/25/2024 2:15 PM EDT Office Visit [facility] [address] [place] [phone] Laney Kirkpatrick MD [address] [place] [phone] 01/08/2025 1:00 PM EDT Clinical Support [facility] [address] [place] [phone] Marysol Tovar RN documented as of this encounter Visit Diagnoses Diagnosis Panic disorder without agoraphobia documented in this encounter Additional Health Concerns Assessment Noted Time PHQ-9 Depression Total Score: 7 11/10/19 23 3:56 PM EDT documented as of this encounter Care Teams Flare Breaker Relationship Specialty Start Date End Date Laney Kirkpatrick MD [address] [place] [phone] PCP - General Family Medicine 11/25/17 documented as of this encounter
--- OUTSIDE RECORDS SUMMARY | 2024-11-08 17:19 | XMS_ITS | Encounter Summary ---
Author Organization [facility] Address [address] [place] [address] 7[address] [place] [address] Care Team Providers Care Line Production Cook Name Role Phone Laney Kirkpatrick MD Primary Care Provider + Reason for Visit * Reason Comments Med Refill Encounter Details Date Type Department Care Team ([facility] Contact Info) Description 04/21/2023 Refill [facility] [address] [place] [address] [phone] Laney Kirkpatrick MD [address] [place] [address] [phone] Other insomnia Social History Tobacco Use Types [...] Upcoming Encounters Date Type Department Care Team ([facility] Contact Info) Description 11/10/2024 1:30 PM EDT Office Visit [facility] [address] [place] [phone] Danis Ynaez MD [address] [place] [address] [phone] 11/23/2024 10:00 AM EDT Office Visit [facility] OPTOMETRY [address] [place] [address] Ashley Espinal OD [address] [place] [address] 12/25/2024 2:15 PM EDT Office Visit [facility] [address] [place] [address] Laney Kirkpatrick MD [address] [place], [place] 01/08/2025 1:00 PM EDT Clinical Support [facility] [address] [place] [phone] Marysol Tovar RN documented as of this encounter Visit Diagnoses Diagnosis Other insomnia documented in this encounter Additional Health Concerns Assessment Noted Time PHQ-9 Depression Total Score: 7 11/10/19 23 3:56 PM EDT documented as of this encounter Care Teams Line Production Cook Relationship Specialty Start Date End Date Laney Kirkpatrick MD [address] [place] [phone] PCP - General Family Medicine 11/25/17 documented as of this encounter
--- OUTSIDE RECORDS SUMMARY | 2024-11-08 17:19 | XMS_ITS | Encounter Summary ---
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 Oxycodone count was 69, anticipated [...] Description 11/10/2024 1:30 PM EDT Office Visit [facility] [address] [place] [address] Danis Yanez MD [address] [place] [address] 11/23/2024 10:00 AM EDT Office Visit [facility] [address] [place] [address] Ashley Espinal, OD [address] [place] [address] 12/25/2024 2:15 PM EDT Office Visit [facility] [address] [place] [address] Laney Kirkpatrick MD [address] [place] [address] 01/08/2025 1:00 PM EDT Clinical Support [facility] [address] [place] [address] Marysol Tovar RN documented as of this encounter Visit Diagnoses Diagnosis Other insomnia documented in this encounter Care Teams Rn Immunology Relationship Specialty Start Date End Date Laney Kirkpatrick MD [address] [place] [phone] PCP - General Family Medicine 11/25/17 documented as of this encounter
--- OUTSIDE RECORDS SUMMARY | 2024-11-08 17:19 | XMS_ITS | Encounter Summary ---
Author Organization [employer] [facility] Address [address] [facility] 7t [place] [address] Care Team Providers Care Track Watchman Name Role Phone Laney Kirkpatrick MD Primary Care Provider + Encounter Details Date Type Department Care Team (Late Contact Info) Description 07/09/2022 Abstract [facility] [address] [place], [place] [phone] ProviderDina MD Social History Tobacco Use Types [...] Description 11/10/2024 1:30 PM EDT Office Visit [facility] [address] [place] [address] Danis Yanez MD [address] [place] [address] 11/23/2024 10:00 AM EDT Office Visit [facility] OPTOMETRY [address] [place], [place] [phone] Ashley Espinal OD [address] [place] [address] 12/25/2024 2:15 PM EDT Office Visit [address] [address] Laney Kirkpatrick MD [address] [place] [address] 01/08/2025 1:00 PM EDT Clinical Support [address] [address] Marysol Tovar, HAWK documented as of this encounter Visit Diagnoses Not on filedocumented in this encounter Care Teams Track Watchman Relationship Specialty Start Date End Date Laney Kirkpatrick MD [address] [place] [phone] PCP - General Family Medicine 11/25/17 documented as of this encounter
--- OUTSIDE RECORDS SUMMARY | 2024-11-08 17:19 | XMS_ITS | Encounter Summary ---
Author Organization [employer] [facility] Address [address] [facility] 7t [place] [address] Care Team Providers Care Test Borer Helper Name Role Phone Laney Kirkpatrick MD Primary Care Provider + Encounter Details Date Type Department Care Team ([facility] Contact Info) Description 12/18/2022 Orders Only [facility] [address] [place] [phone] Laney Kirkpatrick MD [address] [place] [phone] Social History Tobacco Use Types Packs/Day Years [...] Upcoming Encounters Date Type Department Care Team ([facility] Contact Info) Description 11/10/2024 1:30 PM EDT Office Visit [facility] [address] [place] [address] Danis Yanez MD [address] [place] [address] 11/23/2024 10:00 AM EDT Office Visit [facility] OPT[facility]ET[facility] [address] [place] [address] Ashley Espinal, OD [address] [place] [address] 12/25/2024 2:15 PM EDT Office Visit [facility] [address] [place] [address] Laney Kirkpatrick MD [address] [place] [address] 01/08/2025 1:00 PM EDT Clinical Support [facility] [address] [place] [address] Marysol Tovar, HAWK documented as of this encounter Visit Diagnoses Not on filedocumented in this encounter Additional Health Concerns Assessment Noted Time PHQ-9 Depression Total Score: 7 11/10/19 23 3:56 PM EDT documented as of this encounter Care Teams Test Borer Helper Relationship Specialty Start Date End Date Laney Kirkpatrick MD [address] [place] [phone] PCP - General Family Medicine 11/25/17 documented as of this encounter
--- OUTSIDE RECORDS SUMMARY | 2024-11-08 17:19 | XMS_ITS | Encounter Summary ---
Author Organization [employer] Address [address] [facility] [address] 7t [place] [address] Care Team Providers Care Environmental Research Project Manager Name Role Phone Laney Kirkpatrick MD Primary Care Provider + Reason for Visit * Reason Comments Med Refill Encounter Details Date Type Department Care Team ([facility] st Contact Info) Description 04/26/2024 Refill [facility] [address] [place] [address] Basil Francois, YASH [address] [place] [address] Social History Tobacco Use Types Packs/Day Years [...] Description 11/10/2024 1:30 PM EDT Office Visit [facility] [address] [place] [address] Danis Yanez MD [address] [place] [phone] 11/23/2024 10:00 AM EDT Office Visit [facility] OPT[facility] [address] [place] [address] Ahsley Espinal, OD [address] [place] [address] 12/25/2024 2:15 PM EDT Office Visit [facility] [address] [place] [address] Laney Kirkpatrick MD [address] [place] [address] 01/08/2025 1:00 PM EDT Clinical Support [facility] [address] [place] [address] Marysol Tovar RN documented as of this encounter Visit Diagnoses Not on filedocumented in this encounter Additional Health Concerns Assessment Noted Time PHQ-9 Depression Total Score: 7 04/03/20 23 3:56 PM EDT documented as of this encounter Care Teams Environmental Research Project Manager Relationship Specialty Start Date End Date Laney Kirkpatrick MD [address] [place] [phone] PCP - General Family Medicine 11/25/17 documented as of this encounter
--- OUTSIDE RECORDS SUMMARY | 2024-11-08 17:19 | XMS_ITS | Encounter Summary ---
Author Organization [facility] Address [address] [place] [address] 7t [place] [address] Care Team Providers Care Control Room Helper Name Role Phone Laney Kirkpatrick MD Primary Care Provider + Reason for Visit * Reason Comments Med Refill Encounter Details Date Type Department Care Team ([facility] Contact Info) Description 03/02/2023 Refill [facility] [address] [place] [address] [phone] Adrienne Hernandez MD [address] [place] [address] [phone] Anxiety state Social History Tobacco Use Types [...] Upcoming Encounters Date Type Department Care Team ([facility] Contact Info) Description 11/10/2024 1:30 PM EDT Office Visit [facility] [address] [place] [address] [phone] Danis Yanez MD [address] [place], [place] [phone] 11/23/2024 10:00 AM EDT Office Visit [facility] OPTOMET[facility] [address] [place], [place] [phone] Ashley Espinal, OD [address] [place] [address] 12/25/2024 2:15 PM EDT Office Visit [facility] [address] [place] [address] Laney Kirkpatrick MD [address] [place], [place] 01/08/2025 1:00 PM EDT Clinical Support [facility] [address] [place] [address] Marysol Tovar, HAWK documented as of this encounter Visit Diagnoses Diagnosis Anxiety state Anxiety state, unspecified documented in this encounter Additional Health Concerns Assessment Noted Time PHQ-9 Depression Total Score: 7 11/10/19 23 3:56 PM EDT documented as of this encounter Care Teams Control Room Helper Relationship Specialty Start Date End Date Laney Kirkpatrick MD [address] [place] [phone] PCP - General Family Medicine 11/25/17 documented as of this encounter
--- OUTSIDE RECORDS SUMMARY | 2024-11-08 17:19 | XMS_ITS | Encounter Summary ---
Author Organization [employer] Address [address] [facility] [address] 7t [place] [address] Care Team Providers Care Electronic Pagination System Operator Name Role Phone Laney Kirkpatrick MD Primary Care Provider + Reason for Visit * Reason Comments Med Refill Encounter Details Date Type Department Care Team ([facility] st Contact Info) Description 03/20/2024 Refill [facility] [address] [place] [address] Pawel Pate DDS [address] [place] [address] Social History Tobacco Use Types Packs/Day Years [...] Description 11/10/2024 1:30 PM EDT Office Visit [facility] [address] [place] [address] Danis Yanez MD [address] [place] [address] 11/23/2024 10:00 AM EDT Office Visit [facility] OPTOM[facility] [address] [place] [address] Ashley Espinal, OD [address] [place] [address] 12/25/2024 2:15 PM EDT Office Visit [facility] [address] [place] [address] Laney Kirkpatrick MD [address] [place] [address] 01/08/2025 1:00 PM EDT Clinical Support [facility] [address] [place] [address] Marysol Tovar RN documented as of this encounter Visit Diagnoses Not on filedocumented in this encounter Additional Health Concerns Assessment Noted Time PHQ-9 Depression Total Score: 7 11/10/19 23 3:56 PM EDT documented as of this encounter Care Teams Electronic Pagination System Operator Relationship Specialty Start Date End Date Laney Kirkpatrick MD [address] [place] [phone] PCP - General Family Medicine 11/25/17 documented as of this encounter
--- OUTSIDE RECORDS SUMMARY | 2024-11-08 17:19 | XMS_ITS | Encounter Summary ---
Author Organization [email or web address] [facility] Address [address] [facility] 7t [place] [address] Care Team Providers Care Angle Bender Name Role Phone Laney Kirkpatrick MD Primary Care Provider + Encounter Details Date Type Department Care Team (Late Contact Info) Description 07/09/2022 Abstract [facility] [address] [place], [place] [phone] ProviderDina MD Social History Tobacco Use Types [...] 11/10/2024 1:30 PM EDT Office Visit [facility] [address] [place] [address] Danis Yanez MD [address] [place] [address] 11/23/2024 10:00 AM EDT Office Visit [facility] OPTOMETRY [address] [place], [place] [phone] Ashley Espinal OD [address] [place] [address] 12/25/2024 2:15 PM EDT Office Visit [address] [address] Laney Kirkpatrick MD [address] [place] [address] 01/08/2025 1:00 PM EDT Clinical Support [address] [address] Marysol Tovar, HAWK documented as of this encounter Visit Diagnoses Not on filedocumented in this encounter Care Teams Angle Bender Relationship Specialty Start Date End Date Laney Kirkpatrick MD [address] [place] [address] PCP - General Family Medicine 11/25/17 documented as of this encounter
--- OUTSIDE RECORDS SUMMARY | 2024-11-08 17:19 | XMS_ITS | Encounter Summary ---
Author Organization [employer] [facility] Address [address] [place] [address] Care Team Providers Care Automated Logistics Specialist Name Role Phone Laney Kirkpatrick MD Primary Care Provider + Reason for Referral * Consultation (Routine) - Authorized Specialty Diagnoses / Procedures Referred By Ramiro pedersen Referred To Contact Nutrition Diagnoses Poor appetite IFG (impaired fasting glucose) Laney Kirkpatrick MD [address] [place] [phone] Phone: tel: fax: Referral ID Status Reason Start Date Expiration Date Visits Requested Visits Authorized [id number] Authorized Consult and Treat 11/08/2024 11/08/2025 1 1 Encounter Details Date Type Department Care Team ([facility] st Contact Info) Description 11/08/2024 2:15 PM EDT Office Visit [facility] [address] [place] [address] [phone] Laney Kirkpatrick MD [address] [place] [address] [phone] Poor appetite (Primary Dx); Sprain of anterior talofibular ligament of right ankle, initial encounter; Overweight; IFG (impaired fasting glucose); Dietary counseling; Exercise counseling; Screening for colon cancer Social History Tobacco Use Types Packs/Day Years [...] Mass Index 29.88 11/08/2024 2:03 PM EDT documented in this encounter Progress Notes * Laney Kirkpatrick MD - 11/08/2024 2:15 PM EDT SUBJECTIVE: Ivett Carlson is a 59 y.o. year old female who presents for routine physical exam. Denies recent illness, injury, or hospitalization. Patient was scheduled for a PE, she is mostly up-to-date with preventative care but would like to address few issues. Acute Concerns: Decreased appetite. This been going on for 1 to 2 months, she just does not feel the need to eat, denies postprandial abdominal pain, nausea, diarrhea, melena, shortness of breath. She is a non-smoker. She denies using recreational substances. She tells me that she gets very butler and sad over the holidays as they reminded her of her son who 2 to 4 years ago and her who 6 to 7 years ago. She currently does not have a partner, lives alone and her childrenvisit her regularly. She fell after episode of lightheadedness when getting up from bed last week. She fell on her rightknee and ankle had difficulty getting up, she has been using ankle brace since. She did not hit herhead or had loss of consciousness, she denies previous episode of chest pain, severe headache. Social History Social History Narrative Not on file Patient Active Problem List Diagnosis Acute pain Arachnoid cyst Arthritis of knee Hip pain Cervical spondylosis without myelopathy Depressive disorder Disorder of skeletal muscle Fall Grief IFG (impaired fasting glucose) Lumbar disc disease with radiculopathy Panic disorder without agoraphobia Pneumonia of both lungs due to infectious organism Posttraumatic stress disorder Primary osteoarthritis of right hip Primary osteoarthritis of right shoulder Spinal stenosis of lumbar region Tendinitis of left rotator cuff Thoracic and lumbosacral neuritis Visual impairment Vitamin D deficiency Allergic reaction Encounter for other screening for malignant neoplasm of breast Calcaneal spur of foot, right Overweight Pure hypercholesterolemia Blood pressure elevated without history of HTN Screening for colorectal cancer Drug-induced constipation Other insomnia Decreased vision in both eyes Fall (on)(from) sidewalk curb, initial encounter Retained dental root Open fracture of tooth Periodontal disease Severe dental caries Flexural eczema Hand dermatitis Chronic periodontitis Dental abscess Sprain of anterior talofibular ligament of right ankle Poor appetite No family history on file. Review of Systems Constitutional: Positive for appetite change. Negative for chills, fatigue and fever. HENT: Negative for congestion, ear pain, nosebleeds, rhinorrhea, sinus pressure, sore throat and trouble swallowing. Eyes: Negative for pain and discharge. Respiratory: Negative for cough, chest tightness and shortness of breath. Cardiovascular: Negative for chest pain, palpitations and leg swelling. Gastrointestinal: Negative for abdominal pain, blood in stool, constipation, diarrhea and nausea. Endocrine: Negative for polydipsia and polyuria. Genitourinary: Negative for dysuria, frequency, genital sores, pelvic pain and vaginal discharge. Musculoskeletal: Positive for arthralgias and back pain. Negative for neck pain. Skin: Negative for rash. Allergic/Immunologic: Negative for environmental allergies. Neurological: Negative for dizziness, seizures, weakness, light-headedness and headaches. Hematological: Negative for adenopathy. Psychiatric/Behavioral: Negative for agitation, behavioral problems, self-injury and suicidal ideas. The patient is nervous/anxious. OBJECTIVE: Vitals: 11/08/24 1403 BP: 128/79 Pulse: 100 Resp: 20 Temp: 96.2 ??F (35.7 ??C) SpO2: 100% Physical Exam HENT: Right Ear: Tympanic membrane and ear canal normal. Left Ear: Tympanic membrane and ear canal normal. Mouth/Throat: Mouth: Mucous membranes are moist. Pharynx: No oropharyngeal exudate or posterior oropharyngeal erythema. Eyes: Pupils: Pupils are equal, round, and reactive to light. Cardiovascular: Rate and Rhythm: Regular rhythm. Pulses: Normal pulses. Heart sounds: Normal heart sounds. No murmur heard. Pulmonary: Breath sounds: Normal breath sounds. Abdominal: General: Bowel sounds are normal. Palpations: Abdomen is soft. Tenderness: There is no abdominal tenderness. Musculoskeletal: Cervical back: Neck supple. Tenderness present. Decreased range of motion. Lumbar back: Tenderness present. Decreased range of motion. Positive right straight leg raise test and positive left straight leg raise test. Right ankle: Tenderness present over the lateral malleolus. Decreased range of motion. Anterior drawer test positive. Skin: General: Skin is warm. Neurological: General: No focal deficit present. Mental Status: She is alert and oriented to person, place, and time. Psychiatric: Mood and Affect: Mood normal. Behavior: Behavior normal. Problem List Items Addressed This Visit Poor appetite - Primary She has gained weight . It is [...] with me in 2 to 3 months Relevant Orders CBC auto differential Comprehensive Metabolic Panel Hemoglobin A1c Referral to Nutrition Therapy Sprain of anterior talofibular ligament of right ankle Advised to use ankle brace to complete 2 to 4 weeks especially for ambulation and use her cane. I gave her information regarding stretching and exercises for her right ankle. Advised to put ice prior to exercises and take Tylenol or meloxicam as needed. She continue oxycodone same dose. Reconsult as needed if symptoms do not improve after 4 weeks Relevant Orders XR Ankle 3+ Views Right (Completed) Overweight Discussed re weight reduction options including exercise, life style modifications, diet. Recommended to decrease soda and sugary beverage consumption, increase protein intake with meals (at least 1 portion of protein with each meal) to assist with satiety, increase dietary fiber Recommended at least 150 min/week of moderate intensity exercise. Refer to dietitian IFG (impaired fasting glucose) Check labs I have discussed with patient regarding increasing physicial activity and decrease calorie intake. Refer to dietitian FU in 6 months Relevant Orders Lipid Panel with Reflex to Direct LDL Comprehensive Metabolic Panel Hemoglobin A1c Referral to Nutrition Therapy Other Visit Diagnoses Dietary counseling Exercise counseling Screening for colon cancer Relevant Orders Cologuard?? colon cancer screening Follow Up: Current Outpatient Medications on File Prior to Visit Medication Sig Dispense Refill acetaminophen (Tylenol) 500 MG tablet Take 1 tablet (500 mg) by mouth every 6 (six) hours if neededfor mild pain for up to 20 doses. 20 tablet 0 Blood Pressure Monitor kit Use as directed [...] BY MOUTH EVERY 4 TO 6 HOURS [id number] capsule 0 DULoxetine (Cymbalta) [address] capsule TAKE 1 CAPSULE BY MOUTH EVERY DAY. DO NOT CRUSH OR CHEW. 30 capsule 2 ibuprofen 600 MG tablet Take 1 tablet (600 mg) by mouth every 6 (six) hours if needed for mild painfor up to 20 doses. 20 tablet 0 loratadine (Claritin) 10 MG tablet Take 1 tablet (10 mg) by mouth in the morning. 90 tablet 1 LORazepam (Ativan) 0.5 MG tablet TAKE 1 TABLET BY MOUTH TWICE A DAY NEEDED IN THE MORNING AND ATBEDTIME FOR ANXIETY 56 tablet 0 Misc. Devices (Pulse Oximeter Deluxe) [...] for up to 28 days. 112 tablet 0 Spacer/Aero-Holding Chambers (AeroChamber Mini Chamber) device use as directed triamcinolone (Kenalog) 0.1 % cream Apply topically if needed in the morning and at bedtime (pain and swelling). 30 g 2 zolpidem (Ambien) 10 MG tablet TAKE 1 TABLET BY MOUTH EVERYDAY AT BEDTIME 28 tablet 0 [DISCONTINUED] oxyCODONE (Roxicodone) 10 MG immediate release tablet Take 1 tablet (10 mg) by mouthevery 6 (six) hours if needed for severe pain for up to 28 days. Do not start before October 11, 2024.112 tablet 0 [DISCONTINUED] zolpidem (Ambien) 10 MG tablet TAKE 1 TABLET BY MOUTH EVERYDAY AT BEDTIME 28 tablet 0 No current facility-administered medications on file prior to visit. documented in this encounter Miscellaneous Notes * Patient Education Note - Laney Kirkpatrick MD - 11/08/2024 6:32 PM EDT Images from the original note were not included. Patient Education Table of Contents Ankle Sprain, Phase I Rehab To view videos and all your education online visit, [email or web address] or scan this QR code with your smartphone. Access to this content will in one year. Ankle Sprain, Phase I Rehab An ankle sprain is an injury to the tissues that connect bone to bone (ligaments) in your ankle. Ankle sprains can cause stiffness, loss of motion, and loss of strength. Ask your health care providerwhich exercises are safe for you. Do exercises exactly as told by your provider and adjust them as directed. It is normal to feel mild stretching, pulling, tightness, or discomfort as you do these exercises. Stop right away if you feel sudden pain or your pain gets worse. Do not begin these exercises until told by your provider. Stretching and [id number] exercises These exercises warm up your muscles and joints. They can improve the movement and flexibility of your lower leg and ankle. They also help to relieve pain and stiffness. Gastroc and soleus stretch This exercise is also called a calf stretch. It stretches the muscles in the back of the lower leg.These muscles are the gastrocnemius, or gastroc, and the soleus. 1. Sit on the floor with your left / right leg extended. Loop a belt or towel around the ball of your left / right foot. The ball of your foot is on the walking surface, right under your toes. Keep your left / right ankle and foot relaxed and keep your knee straight. Use the belt or towel topull your foot toward you. You should feel a gentle stretch behind your calf or knee in your gastroc muscle. Hold this position for seconds, then release to the starting position. Repeat the exercise with your knee bent. You can put a pillow or a rolled bath towel under your knee to support it. You should feel a stretch deep in your calf in the soleus muscle or at your Achilles tendon. Repeat times. Complete this exercise times a day. Ankle alphabet 1. Sit with your left / right leg supported at the lower leg. Do not rest your foot on anything. Make sure your foot has room to move freely. Think of your left / right foot as a paintbrush. Move your foot to trace each letter of the alphabet in the air. Keep your hip and knee still while you trace. Make the letters as large as you can without feeling discomfort. Trace every letter from A to Z. Repeat times. Complete this exercise times a day. Strengthening exercises These exercises build strength and endurance in your ankle and lower leg. Endurance is the ability to use your muscles for a long time, even after they get tired. Ankle dorsiflexion 1. Secure a rubber exercise band or tube to an object, such as a table leg, that will stay still when the band is pulled. Secure the other end around your left / right foot. Sit on the floor facing the object, with your left / right leg extended. The band or tube should beslightly tense when your foot is relaxed. Slowly bring your foot toward you, bringing the top of your foot toward your jackson (dorsiflexion), and pulling the band tighter. Hold this position for seconds. Slowly return your foot to the starting position. Repeat times. Complete this exercise times a day. Ankle plantar flexion 1. Sit on the floor with your left / right leg extended. Loop a rubber exercise tube or band around the ball of your left / right foot. The ball of your foot is on the walking surface, right under your toes. Hold the ends of the band or tube in your hands. The band or tube should be slightly tense when your foot is relaxed. Slowly point your foot and toes downward to tilt the top of your foot away from your jackson (plantar flexion). Hold this position for seconds. Slowly return your foot to the starting position. Repeat times. Complete this exercise times a day. Ankle eversion 1. Sit on the floor with your legs straight out in front of you. Loop a rubber exercise band or tube around the ball of your left / right foot. The ball of your foot is on the walking surface, right under your toes. Hold the ends of the band in your hands or secure the band to a stable object. The band or tube should be slightly tense when your foot is relaxed. Slowly push your foot outward, away from your other leg (eversion). Hold this position for seconds. Slowly return your foot to the starting position. Repeat times. Complete this exercise times a day. This information is not intended to replace advice given to you by your health care provider. Make sure you discuss any questions you have with your health care provider. Document Released: 2006-02-24 Document Updated: 2023-05-19 Document Reviewed: 2023-05-19 [employer] Patient Education ? 2024 [employer]. * Assessment & Plan Note - Laney Kirkpatrick MD - 11/08/2024 4:34 PM EDT Associated Problem(s): IFG (impaired fasting glucose) Check labs I have discussed with patient regarding increasing physicial activity and decrease calorie intake. Refer to dietitian FU in 6 months * Assessment & Plan Note - Laney Kirkpatrick MD - 11/08/2024 4:34 PM EDT Associated Problem(s): Poor appetite She has gained weight . It is [...] with me in 2 to 3 months * Assessment & Plan Note - Laney Kirkpatrick MD - 11/08/2024 4:32 PM EDT Associated Problem(s): Sprain of anterior talofibular ligament of right ankle Advised to use ankle brace to complete 2 to 4 weeks especially for ambulation and use her cane. I gave her information regarding stretching and exercises for her right ankle. Advised to put ice prior to exercises and take Tylenol or meloxicam as needed. She continue oxycodone same dose. Reconsult as needed if symptoms do not improve after 4 weeks * Assessment & Plan Note - Laney Kirkpatrick MD - 11/08/2024 2:02 PM EDT Associated Problem(s): Overweight Discussed re weight reduction options including exercise, life style modifications, diet. Recommended to decrease soda and sugary beverage consumption, increase protein intake with meals (at least 1 portion of protein with each meal) to assist with satiety, increase dietary fiber Recommended at least 150 min/week of moderate intensity exercise. Refer to dietitian documented in this encounter Plan of Treatment Upcoming Encounters Date Type Department Care Team (Late st Contact Info) Description 11/10/2024 1:30 PM EDT Office Visit [facility] [address] [place] [address] Danis Yanez MD [address] [place] [address] 11/23/2024 10:00 AM EDT Office Visit [facility] [address] [place] [address] Ashley Espinal OD [address] [place] [address] 12/25/2024 2:15 PM EDT Office Visit [facility] [address] [place] [address] Laney Kirkpatrick MD [address] [place] [address] 01/08/2025 1:00 PM EDT Clinical Support [facility] [address] [place] [address] Marysol Tovar, HAWK Scheduled Orders Name Type Priority Associated Diagnoses Orde r Schedule Cologuard?? colon cancer screening Lab Routine Screening for colon cancer Ordered: 11/08/2024 CBC auto differential Lab Routine Poor appetite Expected: 11/08/2024 (Approximate), Expires: 11/08/2025 Lipid Panel with Reflex to Direct LDL Lab Routine IFG (impaired fasting glucose) Expected: 11/08/2024 (Approximate), Expires: 11/08/2025 Comprehensive Metabolic Panel Lab Routine Poor appetite IFG (impaired fasting glucose) Expected: 11/08/2024 (Approximate), Expires: 11/08/2025 Hemoglobin A1c Lab Routine Poor appetite IFG (impaired fasting glucose) Expected: 11/08/2024 (Approximate), Expires: 11/08/2025 Scheduled Referrals Name Type Priority Associated Diagnoses Orde r Schedule Referral to Nutrition Therapy Outpatient Referral Routine Poor appetite IFG (impaired fasting glucose) Expected: 11/08/2024 (Approximate), Expires: 11/08/2025 documented as of this encounter Procedures Procedure Name Priority Date/Time Associated Diagnosis Comments XR ANKLE 3+ VIEWS RIGHT Routine 11/08/2024 2:43 PM EDT Sprain of anterior talofibular ligament of right ankle, initial encounter documented in this encounter Results * XR Ankle 3+ Views Right (11/08/2024 2:43 PM EDT) Anatomical Region Laterality Modality Lower Extremities, Ankle Right Radiogr aphic Imaging 11/08/2024 2:43 PM EDT Narrative 11/08/2024 3:07 PM EDT ?[facility] ?[address] ?[place] [address] ?XRay Report ? Signed ? Patient: Aldo,Ivett Y ?MR#: [id number] ?? [id number] ? : 1965 ?Acct:[id number] ? Age/Sex: 59 / F ?ADM Date: 04/02/25 ? Loc: HO.HHCX ? Attending Dr: Laney Kirkpatrick MD ? Ordering Physician: Laney Kirkpatrick MD ?? Date of Service: 11/08/24 ?? Procedure(s): XR ankle RT min 3V ?? Accession Number(s): [id number] ? cc: Laney Kirkpatrick MD ? EXAMINATION: [...] DD/ 1443 ? TD/TT: 11/08/24 1453 ? Mapping Editor: ? Procedure Note Jerica Chin - 11/08/2024 [facility] [address] [place] [address] XRay Report Signed Patient: Ivett Carlson YMR#: [id number] : 1965Acct:[id number] Age/Sex: 59 / FADM Date: 11/08/24 Loc: HO.HHCX Attending Dr: Laney Kirkpatrick MD Ordering Physician: Laney Kirkpatrick MD Date of Service: 11/08/24 Procedure(s): XR ankle RT min 3V Accession Number(s): [id number] cc: Laney Kirkpatrick MD EXAMINATION: XR ANKLE, [...] acute fracture or dislocation. Electronically signed by: Spike Melgar MD 11/08/2024 03:05 PM EDT Dictated By: Spike Melgar MD Signed By: <Electronically signed by Spike Melgar MD in OV> 11/08/24 1505 DD/ 1443 TD/TT: 11/08/24 1453 Mapping Editor: Laney Kirkpatrick MD IMG XR PROCEDURES Final Result documented in this encounter Visit Diagnoses Diagnosis Poor appetite- Primary Anorexia Sprain of anterior talofibular ligament of right ankle, initial encounter Overweight IFG (impaired fasting glucose) Dietary counseling Dietary surveillance and counseling Exercise counseling Screening for colon cancer Special screening for malignant neoplasms, colon documented in this encounter Additional Health Concerns Assessment Noted Time PHQ-9 Depression Total Score: 7 11/10/19 23 3:56 PM EDT documented as of this encounter Care Teams Automated Logistics Specialist Relationship Specialty Start Date End Date Laney Kirkpatrick MD [address] [place] [phone] PCP - General Family Medicine 11/25/17 documented as of this encounter
--- OUTSIDE RECORDS SUMMARY | 2024-11-08 17:19 | XMS_ITS | Encounter Summary ---
Author Organization [employer] [facility] Address [address] [place] [address] [address] [place] [address] Care Team Providers Care Video Player Mechanic Name Role Phone Laney Kirkpatrick MD Primary Care Provider + Reason for Visit * Reason Comments Med Refill Encounter Details Date Type Department Care Team ([facility] Contact Info) Description 04/21/2023 Refill [facility] [address] [place] [address] [phone] Laney Kirkpatrick MD [address] [place] [address] [phone] Anxiety state Social History Tobacco Use Types [...] Upcoming Encounters Date Type Department Care Team ([facility] Contact Info) Description 11/10/2024 1:30 PM EDT Office Visit [facility] [address] [place] [phone] Danis Yanez MD [address] [place] [address] [phone] 11/23/2024 10:00 AM EDT Office Visit [facility] [address] [place] [address] Ashley Espinal OD [address] [place] [address] 12/25/2024 2:15 PM EDT Office Visit [facility] [address] [place] [address] Laney Kirkpatrick MD [address] [place], [place] 01/08/2025 1:00 PM EDT Clinical Support [facility] [address] [place] [phone] Marysol Tovar, HAWK documented as of this encounter Visit Diagnoses Diagnosis Anxiety state Anxiety state, unspecified documented in this encounter Additional Health Concerns Assessment Noted Time PHQ-9 Depression Total Score: 7 11/10/19 23 3:56 PM EDT documented as of this encounter Care Teams Video Player Mechanic Relationship Specialty Start Date End Date Laney Kirkpatrick MD [address] [place] [phone] PCP - General Family Medicine 11/25/17 documented as of this encounter
--- OUTSIDE RECORDS SUMMARY | 2024-11-08 17:19 | XMS_ITS | Data Portability ---
Author Organization [employer] [place] [facility] [employer] Address [address] [place] [address] Care Team Providers Care Child Study Team Director Name Role Phone [facility] Referring Provider HIM [facility] OTHER Assessment Encounter Date Assessment Date Assessment LastModified by Organization Details LastModified Time 02/16/2023 02/16/2023 I provided real -time medical direction via phone for this encounter, and was available for additional phone based assistance as needed. I have reviewed and agree with the Assessment and Plan as documented by the Dynamic Balancer. Patient given the opportunity to ask questions. [...] verbalized understanding of instructions to the medic. [email or web address] Not available 02/16/2023 13:09:13 05/04/2024 05/04/2024 As noted, we were called to see this patient regarding concerns of palm lesion. Evaluation in the field was performed by my compliance coordinator colleague, as noted above, I provided real-time [...] Assessment and Plan as documented by the Dynamic Balancer. Patient given the opportunity to ask questions. Our service contacted for an assessment of: Viral URI symptoms As per above, patient with approximately several days of viral URI symptoms. Denies fever or chills. Denies chest pain, shortness of breath, dyspnea on exertion. Positive nasal congestion and dry cough. Positive sick contacts. Per compliance coordinator on the scene, vital signs are stable and patient is afebrile. Minimal wheezing heard on exam. COVID and Flu are both negative. No increased work of breathing and no distress. Impression: Common cold and viral URI Plan: Continue with [id number] medications to control symptoms. Red flags discussed [...] Lab rapid flu (A+B) 2024 025 [email or web address] [facility], [address] [place] [address], [phone], 21:20:45 rapid SARS CoV 2 Ag, QL IA, respiratory specimen 2024 025 [email or web address] [facility], [address] [place] [address], [phone], 21:20:44 Referral None recorded. Procedures None recorded. Surgeries None recorded. Imaging None recorded. Medication Orders ketorolac 30 mg/mL injection solution 2022 023 [email or web address] 0 Not available 13:18:38 ibuprofen 600 mg tablet 2022 023 [facility]armacy #[id number], [address] [place], [address], 3 13:18:40 cyclobenzap rine 5 mg tablet 2022 023 [facility]armacy #[id number], [address] [place], [address], 3 13:18:40 Patient TargetsNo targets recorded. Patient InstructionsNo instructions recorded. Reason for Referral None Reported. Results Created Date Observation Date Name Description Value Unit Range Abnormal Flag Note LastModifiedBy Organization Detail LastModifiedTime 08/16/19 25 08/16/2024 rapid SARS CoV 2 Ag, QL IA, respi rator y speci men rapid SARS CoV 2 Ag, QL IA, respiratory specimen negati ve Not Available [facility] ed [address] [place] [address], [phone], 08/16/2024 21:20:15 08/16/19 25 08/16/2024 rapid flu (A+B) Flu negati ve Not Available [facility] [address] [place] [address], [phone], 08/16/2024 21:20:13 Result Notes None recorded. Medical [...] /min 110 mm[Hg] 69 mm[Hg] Not Available [employer] 3 12:44:50 Date Recorded Body weight Provider Name an d Address Organization Details Last Updated DateTime 02/16/2023 59506.97 g Anita Fields [address] [place] [address],[address], [place], [address], [place] - [facility] 02/16/2023 12:57:51 Date Recorded Respiratory rate Body weight Heart rate Body temperature Oxygen saturation Oxygen saturation in Arterial blood by Pulse oximetry Systolic blood pressure Diastolic blood pressure Provider Name and Address Organization Details Last Updated DateTime 4 16 /min 27477.6 16 g 88 /min 98.2 [degF] 98 % 98 % 108 mm[Hg] 64 mm[Hg] Not Available [employer] 4 20:22:04 Date Recorded Oxygen saturation Oxygen saturation in Arterial blood by Pulse oximetry Body temperature Heart rate Respiratory rate Systolic blood pressure Diastolic blood pressure Provider Name and Address Organization Details Last Updated DateTime 5 99 % 99 % 98.1 [degF] 89 /min 16 /min 122 mm[Hg] 78 mm[Hg] Not Available [employer] 5 21:18:56 Social History None recorded. Functional Status None recorded. Mental Status None recorded. Family History Nothing Reported. Medical History No medical history recorded. Gynecological HistoryNo gynecological history recorded. Obstetrics History GPAL:G 0 P 0 0 0 0 Past Encounters Encounter ID Performer Location Encounter Start Date Encounter Closed Date Diagnosis/Indication Diagnosis SNOMED-CT Code Diagnosis ICD10 Code Diagnosis Note [id number] Thao Love MD Main - [employer] [address] [place] [phone] 02/16/2023 12:44:48 02/17/2023 10:53:07 Acute low back pain 606330387 M54.50 on top of chronic with wht [...] verbalized understand ing to the medic Pain 24353102 R52 as above- advised cannot do mutliple ketorolac injections /multiple days in a row due to renal and GI effects/ri sks but can repeat injection 2 x- 3x / week short term [id number] Katlyn Oscar MD [facility] [address] [place] [id number] 05/04/2024 20:21:59 05/04/2024 23:24:04 Skin lesion 26186905 L98.9 [id number] Anca Russell MD [facility] [address] [place] [id number] 08/16/2024 21:18:54 08/16/2024 22:17:37 Common cold 26108634 J00 Health Concerns Section Related Observation LastModified by Organization Detai ls LastModified Time None Recorded Concern Status LastModified by Organization Details LastModified Time None Recorded Advance Directives Directive None Recorded Payers Encounter Date Sequence Insurance Name Policy Number Policy Blue Covered Member ID Blue Member ID Guarantor Name 02/16/2023 1 [facility] [employer] - DOS ON OR AFTER 2022 - DUAL ELIGIBLE - RETIREMENT OPTIONS AND ONE CARE (MEDICARE REPLACEMENT/ADV ANTAGE - HMO) Ivett Knightasio [id number] Ivett Y Aldo 05/04/2024 1 [facility] [employer] - DOS ON OR AFTER 2022 - DUAL ELIGIBLE - RETIREMENT OPTIONS AND ONE CARE (MEDICARE REPLACEMENT/ADV ANTAGE - HMO) Ivett Aldo [id number] Ivett Y Aldo 08/16/2024 1 [facility] [employer] - DOS ON OR AFTER 2022 - DUAL ELIGIBLE - RETIREMENT OPTIONS AND ONE CARE (MEDICARE REPLACEMENT/ADV ANTAGE - HMO) Ivett Carlson [id number] Ivett Carlson Notes Date Note Type Note [...] .................... .................... .................... .................... .................... .................... ..... Dynamic Balancer Note From Peace Vazquez: Community Dynamic Balancer Russell George CCA1 dispatched to a yellow [...] . Disposition: Fulfilled Thao Love MD [address] [facility],[address], [place], [address], [employer] 02/16/2023 16:39:55 05/04/2024 text/html HPI: Patient with rash with blisters on palm of right hand. Has been treated with Triamcinolone x 2 weeks with no resoloution. .................... .................... .................... .................... .................... .................... .................... . [facility] Nurse Triage Notes (Kip Umana): Chief Complaints: Rash PMH: Hypertension Allergies: Morphine Comments: HPI reviewed by this RN, no further information needed to process visit -Merle Umana [id number] Medic unable to reach, CRC RN left [facility] HPI: rash, right palm, when to PCP clinic, got steroid cream. applying four times per day for two weeks. not improving. itching. tender.............. .................... .................... .................... .................... .................... .................... ........ Dynamic Balancer Note From Deric Pruitt: Pt co continued [...] vitals assessed WNL, afebrile, photos uploaded , [facility] contacted and advised pt to discontinue use of ointment and contact pcp for referral to dermatology. Pt agreeable , pt sts will call pcp in the morning . Pt education on signs indicating the ER. .................... .................... .................... .................... .................... .................... .................... . Disposition: Fulfilled Katlyn Oscar MD [address] [place] [address],[address], [place], [address], [employer] 05/04/2024 21:29:00 08/16/2024 text/html HPI: Patient with onset of illness yesterday with hoarsness, sore throat and nasal congestion. No home Covid tests. Has slight SOB with exertion. Used to have inhaler not noted in chart but no longer has one. .................... .................... .................... .................... .................... .................... .................... . [facility] Nurse Triage Notes (Zuleyka Juan - RN): Chief Complaints: Common cold symptoms, Breathing problems PMH: Hypertension, Chronic Pain PMH Reviewed at 08/16/2024:52 Allergies Reviewed at 08/16/2024 - :52 Comments: HPI reviewed- [place] Dynamic Balancer Organization Information for [employer]en [employer] Business Legal Name: [employer]? Address: [address] [place] [id number], Agricultural Education Instructor: Flavio CORTES No.: [id number] Dynamic Balancer POC Test Results from [employer] - [facility] Rapid COVID antigen (19:34:03) COVID: - Rapid influenza antigen (19:34:07) Flu: - .................... .................... .................... .................... .................... .................... .................... . Dynamic Balancer Note From Arya Ruano: Dispatched to the [...] .................... .................... .................... .................... .................... .................... . [facility] Consulted: Anca Russell .................... .................... .................... .................... .................... .................... .................... . Disposition: Fulfilled Anca Russell MD [address] [facility],[address], [place], [address], [employer] [facility] 08/16/2024 21:21:10 OBGyn Episode No OBEpisode recorded.
--- OUTSIDE RECORDS SUMMARY | 2024-11-08 17:19 | XMS_ITS | Encounter Summary ---
Author Organization [employer] [facility] Address [address] [place] [address] 7t [place] [address] Care Team Providers Care Commercial Field Inspector Name Role Phone Laney Kirkpatrick MD Primary Care Provider + Encounter Details Date Type Department Care Team ([facility] Contact Info) Description 03/12/2023 Orders Only [facility] MEDICINE [address] [place] [address] [phone] Laney Kirkpatrick MD [address] [place] [address] [phone] Social History Tobacco Use Types Packs/Day Years [...] Upcoming Encounters Date Type Department Care Team ([facility] Contact Info) Description 11/10/2024 1:30 PM EDT Office Visit [facility] MEDICINE [address] [place] [address] [phone] Danis Yanez MD [address] [place] [address] [phone] 11/23/2024 10:00 AM EDT Office Visit [facility] OPTOMETRY [address] [place] [address] Ashley Espinal OD [address] [place] [address] 12/25/2024 2:15 PM EDT Office Visit [facility] MEDICINE [address] [place] [address] Laney Kirkpatrick MD [address] [place] [phone] 01/08/2025 1:00 PM EDT Clinical Support [facility] MEDICINE [address] [place] [phone] Marysol Tovar RN documented as of this encounter Visit Diagnoses Not on filedocumented in this encounter Additional Health Concerns Assessment Noted Time PHQ-9 Depression Total Score: 7 11/10/19 23 3:56 PM EDT documented as of this encounter Care Teams Commercial Field Inspector Relationship Specialty Start Date End Date Laney Kirkpatrick MD [address] [place] [address] [phone] PCP - General Family Medicine 11/25/17 documented as of this encounter
--- OUTSIDE RECORDS SUMMARY | 2024-11-08 17:19 | XMS_ITS | Encounter Summary ---
Author Organization [employer] Address [address] [facility] 7t [place] [address] Care Team Providers Care Electronic Scale Assembler And Tester Name Role Phone Laney Kirkpatrick MD Primary Care Provider + Reason for Visit * Reason Onset Date Comments Med Refill 07/09/2022 Encounter Details Date Type Department Care Team ([facility] Contact Info) Description 07/09/2022 Telephone [facility] MEDICINE [address] [place], [place] [phone] Laney Kirkpatrick MD [address] [place] [address] Med Refill Social History Tobacco Use Types [...] Visit [facility] MEDICINE [address] [place] [address] Danis Yanez MD [address] [place] [address] 11/23/2024 10:00 AM EDT Office Visit [facility] OPTOMETRY [address] [place] [address] Ashley Espinal, OD [address] [place] [address] 12/25/2024 2:15 PM EDT Office Visit [facility] MEDICINE [address] [place] [address] Laney Kirkpatrick MD [address] [place] [address] 01/08/2025 1:00 PM EDT Clinical Support [facility] MEDICINE [address] [place] [phone] Marysol Tovar, HAWK documented as of this encounter Visit Diagnoses Not on filedocumented in this encounter Care Teams Electronic Scale Assembler And Tester Relationship Specialty Start Date End Date Laney Kirkpatrick MD [address] [place] [phone] PCP - General Family Medicine 11/25/17 documented as of this encounter
--- OUTSIDE RECORDS SUMMARY | 2024-11-08 17:19 | XMS_ITS | Encounter Summary ---
Author Organization [employer] Address [address] [facility] [address] [place] [address] Care Team Providers Care Efficiency Manager Name Role Phone Laney Kirkpatrick MD Primary Care Provider + Reason for Visit * Reason Onset Date Comments Med Refill 11/07/2024 Encounter Details Date Type Department Care Team ([facility] st Contact Info) Description 11/07/2024 Refill [facility] MEDICINE [address] [place] [address] Laney Kirkpatrick MD [address] [place] [address] Other insomnia Social History Tobacco Use Types [...] Telephone Encounter - Shadia Perdomo LPN - 11/07/2024 2:20 PM EDT MEDICAL CLAIMS PROCESSOR checked on 11/07/24. Last seen 06/14/24. * Telephone Encounter - Viridiana Ambrose - 11/07/2024 2:17 PM EDT TC from pt requesting medication refill. Medications needing refill : zolpidem (Ambien) 10 MG tablet To be sent to: [facility]/pharmacy #[id number] documented in this encounter Plan of Treatment Upcoming Encounters Date Type Department Care Team (Late st Contact Info) Description 11/10/2024 1:30 PM EDT Office Visit [facility] MEDICINE [address] [place], [place] [phone] Danis Yanez MD [address] [place], [place] [phone] 11/23/2024 10:00 AM EDT Office Visit [facility] OPTOMETRY [address] [place], [place] [phone] Ashley Espinal, SARAH [address] [place] [address] 12/25/2024 2:15 PM EDT Office Visit [address] [phone] Laney Kirkpatrick MD [address] [place] [phone] 01/08/2025 1:00 PM EDT Clinical Support [address] [phone] Marysol Tovar, HAWK documented as of this encounter Visit Diagnoses Diagnosis Other insomnia documented in this encounter Additional Health Concerns Assessment Noted Time PHQ-9 Depression Total Score: 7 11/10/19 23 3:56 PM EDT documented as of this encounter Care Teams Efficiency Manager Relationship Specialty Start Date End Date Laney Kirkpatrick MD [address] [place] [phone] PCP - General Family Medicine 11/25/17 documented as of this encounter
--- OUTSIDE RECORDS SUMMARY | 2024-11-08 17:19 | XMS_ITS | Encounter Summary ---
Author Organization [employer] Address [address] [facility] 7t [place] [address] Care Team Providers Care Field Care Coordinator Name Role Phone Laney Kirkpatrick MD Primary Care Provider + Reason for Visit * Reason Onset Date Comments Med Refill 08/07/2024 Encounter Details Date Type Department Care Team ([facility] Contact Info) Description 08/07/2024 Telephone [facility] MEDICINE [address] [place], [place] [phone] Laney Kirkpatrick MD [address] [place] [address] Med Refill Social History Tobacco Use Types [...] 10 MG tablet To be sent to: [facility]/pharmacy #[id number] [place], [place] - [address] [place] [address] documented in this encounter Plan of Treatment Upcoming Encounters Date Type Department Care Team (Late st Contact Info) Description 11/10/2024 1:30 PM EDT Office Visit [facility] MEDICINE [address] [place] [phone] Danis Yanez MD [address] [place] [address] 11/23/2024 10:00 AM EDT Office Visit [facility] OPTOMETRY [address] [place] [address] Ashley Espinal OD [address] [place] [address] 12/25/2024 2:15 PM EDT Office Visit [facility] MEDICINE [address] [place] [address] Laney Kirkpatrick MD [address] [place] [address] 01/08/2025 1:00 PM EDT Clinical Support [facility] MEDICINE [address] [place] [address] Marysol Tovar RN documented as of this encounter Visit Diagnoses Not on filedocumented in this encounter Additional Health Concerns Assessment Noted Time PHQ-9 Depression Total Score: 7 11/10/19 23 3:56 PM EDT documented as of this encounter Care Teams Field Care Coordinator Relationship Specialty Start Date End Date Laney Kirkpatrick MD [address] [place] [phone] PCP - General Family Medicine 11/25/17 documented as of this encounter
--- OUTSIDE RECORDS SUMMARY | 2024-11-08 17:19 | XMS_ITS | Encounter Summary ---
Author Organization [employer] [facility] Address [address] [place] [address] 7[address] [place] [address] Care Team Providers Care Intake Man Name Role Phone Laney Kirkpatrick MD Primary Care Provider + Reason for Visit * Reason Comments Med Refill Encounter Details Date Type Department Care Team ([facility] Contact Info) Description 03/11/2023 Refill [facility] MEDICINE [address] [place] [address] [phone] Laney Kirkpatrick MD [address] [place] [address] [phone] Anxiety state Social History Tobacco Use Types [...] Upcoming Encounters Date Type Department Care Team ([facility] Contact Info) Description 11/10/2024 1:30 PM EDT Office Visit [facility] MEDICINE [address] [place] [phone] Danis Yanez MD [address] [place] [address] [phone] 11/23/2024 10:00 AM EDT Office Visit [facility] OPTOMETRY [address] [place] [address] Ashley Espinal OD [address] [place] [address] 12/25/2024 2:15 PM EDT Office Visit [facility] MEDICINE [address] [place] [address] Laney Kirkpatrick MD [address] [place], [place] 01/08/2025 1:00 PM EDT Clinical Support [facility] MEDICINE [address] [place] [phone] Marysol Tovar, HAWK documented as of this encounter Visit Diagnoses Diagnosis Anxiety state Anxiety state, unspecified documented in this encounter Additional Health Concerns Assessment Noted Time PHQ-9 Depression Total Score: 7 11/10/19 23 3:56 PM EDT documented as of this encounter Care Teams Intake Man Relationship Specialty Start Date End Date Laney Kirkpatrick MD [address] [place] [phone] PCP - General Family Medicine 11/25/17 documented as of this encounter
== END 2024-11-08 14:43 | disposition home or self-care (01) ==
LOC: HO.HHCX 14:42
PROVIDERS: Visit Provider Internal Medicine
DX: S93.491A Sprain of other ligament of right ankle, initial encounter (principal)
CPT/HCPCS: 73610

== ENCOUNTER → 2024-11-08 14:43 | Outpatient (BNV) | payer OTHER, SELFPAY | PROVIDERS: Visit Provider Radiology Diagnostic Radiology | DX: M25.571 Pain in right ankle and joints of right foot (principal); W19.XXXA Unspecified fall, initial encounter | CPT/HCPCS: 73610 ==

== ENCOUNTER 2024-11-21 11:29 | Outpatient (REF) | payer OTHER, SELFPAY ==
[2024-11-21 13:20] LABS: MANUAL DIFF FLAG NO
[2024-11-21 13:29] LABS: Basophils Percent Auto 0.3 % (0-2); Eosinophils Absolute Auto 0.1 X10*3/uL (0.0-0.4); Eosinophils Percent Auto 1.4 % (0-4); Hematocrit 35.6 % (37.0-47.0); Hemoglobin 11.5 g/dl (12.0-16.0); Imm Gran Abs Auto 0.02 X10*3/uL (0.00-0.03); Imm Gran Pct Auto 0.2 % (0.0-0.4); Lymphocytes Absolute Auto 2.9 X10*3/uL (1.2-4.9); Lymphocytes Percent Auto 31.4 % (20-40); Mean Corpuscular HGB Conc 32.3 g/dl (31.0-35.0); Mean Corpuscular Hemoglobin 29.4 pg (27.0-33.0); Mean Platelet Volume 11.2 fL (9.4-12.3); Monocytes Percent Auto 10.9 % (2-11); Neutrophils Absolute Auto 5.1 x10*3/uL (2.0-8.3); Neutrophils Percent Auto 55.8 % (45-73); Platelet Count 262 X10*3/uL (160-400); Red Blood Count 3.91 X10*6/uL (4.20-5.50); Red Cell Distribution Width 13.1 % (11.0-16.0); White Blood Count 9.1 X10*3/uL (4.8-10.8)
[2024-11-21 13:41] LABS: Estimated Average Glucose 134 mg/dL; Hemoglobin A1C 140.1562 umol/L; Hemoglobin A1c % 6.3 % (<6.0); Total Hemoglobin (HGBA1C) 3103.5879 umol/L
[2024-11-21 14:11] LABS: Alanine Aminotransferase 19 U/L (0-31); Albumin Level 3.7 g/dL (3.5-5.0); Anion Gap 9 (12-20); Aspartate Amino Transferase 35 U/L (5-31); Bilirubin Total 0.4 mg/dL (0.0-1.0); Blood Urea Nitrogen 15 mg/dL (9-16); Calcium 9.2 mg/dL (8.4-10.2); Carbon Dioxide 28 mmol/L (22-29); Chloride 104 mmol/L (96-108); Cholesterol 177 mg/dL (<200); Estimated Glomerular Filt Rate > 60; Glucose Random 101 mg/dL (60-115); HDL Cholesterol 61 mg/dL (>40); LDL Cholesterol Calculated 91 mg/dL (<100); Potassium 3.7 mmol/L (3.3-5.1); Sodium 137 mmol/L (135-145); Total Protein 7.5 g/dL (6.5-8.0); Triglycerides 128 mg/dL (<150)
--- OUTSIDE RECORDS SUMMARY | 2024-11-21 14:16 | XMS_ITS | Data Portability ---
Author Organization [employer] Address [address] [place] [address] Care Team Providers Care Discharge Planner Name Role Phone [facility] Referring Provider HIM CCA OTHER Assessment Encounter Date Assessment Date Assessment LastModified by Organization Details LastModified Time 02/16/2023 02/16/2023 I provided real -time medical direction via phone for this encounter, and was available for additional phone based assistance as needed. I have reviewed and agree with the Assessment and Plan as documented by the Financial Sales Associate. Patient given the opportunity to ask questions. [...] verbalized understanding of instructions to the medic. [email or web address] Not available 02/16/2023 13:09:13 05/04/2024 05/04/2024 As noted, we were called to see this patient regarding concerns of palm lesion. Evaluation in the field was performed by my etcher apprentice colleague, as noted above, I provided real-time [...] Assessment and Plan as documented by the Financial Sales Associate. Patient given the opportunity to ask questions. Our service contacted for an assessment of: Viral URI symptoms As per above, patient with approximately several days of viral URI symptoms. Denies fever or chills. Denies chest pain, shortness of breath, dyspnea on exertion. Positive nasal congestion and dry cough. Positive sick contacts. Per etcher apprentice on the scene, vital signs are stable and patient is afebrile. Minimal wheezing heard on exam. COVID and Flu are both negative. No increased work of breathing and no distress. Impression: Common cold and viral URI Plan: Continue with [id number] medications to control symptoms. Red flags discussed [...] Lab rapid flu (A+B) [email or web address], [phone] 21:20:45 rapid SARS CoV 2 Ag, QL IA, respiratory specimen [email or web address] [facility], [address] [place] [address], [phone] 5 21:20:44 Referral None recorded. Procedures None recorded. Surgeries None recorded. Imaging None recorded. Medication Orders ketorolac 30 mg/mL injection solution 2022 023 [email or web address] 0 Not available 3 13:18:38 ibuprofen 600 mg tablet 2022 023 [id number], [address] [place], [address], 3 13:18:40 cyclobenzap rine 5 mg tablet 2022 023 [id number], [address] [place], [address], 3 13:18:40 Patient TargetsNo targets recorded. Patient InstructionsNo instructions recorded. Reason for Referral None Reported. Results Created Date Observation Date Name Description Value Unit Range Abnormal Flag Note LastModifiedBy Organization Detail LastModifiedTime 08/16/19 25 08/16/2024 rapid SARS CoV 2 Ag, QL IA, respi rator y speci men rapid SARS CoV 2 Ag, QL IA, respiratory specimen negati ve Not Available [facility] ed [address] [place] [address], [phone] 08/16/2024 21:20:15 08/16/19 25 08/16/2024 rapid flu (A+B) Flu negati ve Not Available [facility] ed [address] [place] [address], [phone] 08/16/2024 21:20:13 Result Notes None recorded. Medical Equipment None Reported. Allergies Allergen ID Allergen Name Allergen Category Reaction Reaction Severity Criticality Documentation Date Start Date Code Code System Note Provider Name and Address Organization Details Recorded Time 2750 morphine medicatio n Not available Not available Not available 02/16/2023 7052 RxNorm Not Available [employer] - production 03:38:25 Medications Name Sig Start Date Stop [...] t Available cyclobenzapr ine 5 mg tablet 5 mg 3 x per day as needed for pain/ if not controling pain may increase to 2 tablets(10m g total) 3 x per day active Not Available Not Available No t [...] /min 110 mm[Hg] 69 mm[Hg] Not Available [employer] 3 12:44:50 Date Recorded Body weight Provider Name an d Address Organization Details Last Updated DateTime 02/16/2023 35156.97 g Anita Fields [address] [place] [address],[address], [place], [address], [place] - [email or web address] [facility] 02/16/2023 12:57:51 Date Recorded Respiratory rate Body weight Heart rate Body temperature Oxygen saturation Oxygen saturation in Arterial blood by Pulse oximetry Systolic blood pressure Diastolic blood pressure Provider Name and Address Organization Details Last Updated DateTime 4 16 /min 03059.6 16 g 88 /min 98.2 [degF] 98 % 98 % 108 mm[Hg] 64 mm[Hg] Not Available [employer] 4 20:22:04 Date Recorded Oxygen saturation Oxygen saturation in Arterial blood by Pulse oximetry Body temperature Heart rate Respiratory rate Systolic blood pressure Diastolic blood pressure Provider Name and Address Organization Details Last Updated DateTime 5 99 % 99 % 98.1 [degF] 89 /min 16 /min 122 mm[Hg] 78 mm[Hg] Not Available [employer] 5 21:18:56 Social History None recorded. Functional Status None recorded. Mental Status None recorded. Family History Nothing Reported. Medical History No medical history recorded. Gynecological HistoryNo gynecological history recorded. Obstetrics History GPAL:G 0 P 0 0 0 0 Past Encounters Encounter ID Performer Location Encounter Start Date Encounter Closed Date Diagnosis/Indication Diagnosis SNOMED-CT Code Diagnosis ICD10 Code Diagnosis Note [id number] Thao Love MD [facility] - [employer] [address] [place] [phone] 02/16/2023 12:44:48 02/17/2023 10:53:07 Acute low back pain 006149725 M54.50 on top of chronic with wht [...] verbalized understand ing to the medic Pain 49228952 R52 as above- advised cannot do mutliple ketorolac injections /multiple days in a row due to renal and GI effects/ri sks but can repeat injection 2 x- 3x / week short term [id number] Katlyn Oscar MD [facility] [address] [place] [phone] 05/04/2024 20:21:59 05/04/2024 23:24:04 Skin lesion 01711679 L98.9 [id number] Anca Russell MD [facility] [address] [place] [phone] 08/16/2024 21:18:54 08/16/2024 22:17:37 Common cold 71434330 J00 Health Concerns Section Related Observation LastModified by Organization Detai ls LastModified Time None Recorded Concern Status LastModified by Organization Details LastModified Time None Recorded Advance Directives Directive None Recorded Payers Encounter Date Sequence Insurance Name Policy Number Policy Blue Covered Member ID Blue Member ID Guarantor Name 02/16/2023 1 [facility] - DOS ON OR AFTER 2022 - DUAL ELIGIBLE - SKILLED NURSING OPTIONS AND ONE CARE (MEDICARE REPLACEMENT/ADV ANTAGE - HMO) Ivett Carlson [id number] Ivett Y Aldo 05/04/2024 1 [facility] [employer] - DOS ON OR AFTER 2022 - DUAL ELIGIBLE - SKILLED NURSING OPTIONS AND ONE CARE (MEDICARE REPLACEMENT/ADV ANTAGE - HMO) Ivett Carlson [id number] Ivett Y Aldo 08/16/2024 1 [facility] [employer] - DOS ON OR AFTER 2022 - DUAL ELIGIBLE - SKILLED NURSING OPTIONS AND ONE CARE (MEDICARE REPLACEMENT/ADV ANTAGE - HMO) Ivett Carlson [id number] Ivett Y Aldo Notes Date Note Type Note Provider Name [...] .................... .................... .................... .................... .................... .................... ..... Financial Sales Associate Note From Peace Vazquez: Community Financial Sales Associate Russell Vazquez CCA1 dispatched to a [facility] for a 57 yof C/O right leg [...] .................... .................... .................... .................... .................... . Disposition: Conrado Love MD [address] [facility],[address], [place], [address], [place] NUHA CHAND 02/16/2023 16:39:55 05/04/2024 text/html HPI: Patient with rash with blisters on palm of right hand. Has been treated with Triamcinolone x 2 weeks with no resoloution. .................... .................... .................... .................... .................... .................... .................... . CRC Nurse Triage Notes (Kip Umana): Chief Complaints: Rash PMH: Hypertension Allergies: Morphine Comments: HPI reviewed by this RN, no further information needed to process visit -Merle Umana [id number] Medic unable to reach, CRC RN left [facility] HPI: rash, right palm, when to PCP clinic, got steroid cream. applying four times per day for two weeks. not improving. itching. tender.............. .................... .................... .................... .................... .................... .................... ........ Financial Sales Associate Note From Deric Pruitt: Pt co continued [...] vitals assessed WNL, afebrile, photos uploaded , [facility] contacted and advised pt to discontinue use of ointment and contact pcp for referral to dermatology. Pt agreeable , pt sts will call pcp in the morning . Pt education on signs indicating the ER. .................... .................... .................... .................... .................... .................... .................... . Disposition: Fulfilled Katlyn Oscar MD [address] [place] [address],[address], [place], [address], [employer] 05/04/2024 21:29:00 08/16/2024 text/html HPI: Patient with onset of illness yesterday with hoarsness, sore throat and nasal congestion. No home Covid tests. Has slight SOB with exertion. Used to have inhaler not noted in chart but no longer has one. .................... .................... .................... .................... .................... .................... .................... . CRC Nurse Triage Notes (Zuleyka Juan - RN): Chief Complaints: Common cold symptoms, Breathing problems PMH: Hypertension, Chronic Pain PMH Reviewed at 08/16/2024:52 Allergies Reviewed at 08/16/2024:52 Comments: HPI reviewed- NE Financial Sales Associate Organization Information for Arya Ruano [employer] Name: [employer]? ? Address: [address] [place] [address], [employer]ul[employer] Boss: Flavio CORTES No.: [id number] Financial Sales Associate POC Test Results from Arya Ruano Rapid COVID antigen (19:34:03) COVID: - Rapid influenza antigen (19:34:07) Flu: - .................... .................... .................... .................... .................... .................... .................... . Financial Sales Associate Note From Arya Ruano: Dispatched to the [...] .................... .................... .................... .................... .................... .................... . [facility] Consulted: Anca Russell .................... .................... .................... .................... .................... .................... .................... . Disposition: Fulfilled Anca Russell MD [address] [place] [address],[address], [place], [address], [employer] 08/16/2024 21:21:10 OBGyn Episode No OBEpisode recorded.
[2024-11-21 15:53] LABS: Reflex LDLD? No
[2024-11-21 17:32] LABS: Alkaline Phosphatase 86 U/L (39-117)
== END 2024-11-21 11:30 | disposition home or self-care (01) ==
LOC: HO.HHCL 11:29
PROVIDERS: Visit Provider Internal Medicine
DX: R63.0 Anorexia (principal); R73.01 Impaired fasting glucose; Z13.6 Encounter for screening for cardiovascular disorders
CPT/HCPCS: 36415; 80053; 80061; 83036; 85025

== ENCOUNTER 2024-12-08 12:38 | Emergency (ER) | payer OTHER, SELFPAY ==
--- NOTE | ~2024-12-08 | XR_ITS ---
EXAMINATION: XR CHEST 2 VIEWS HISTORY: chest pain, SOB COMPARISON: Comparison is made with the prior examination dated 04/27/2020. FINDINGS: PA and lateral views of the chest are submitted. The lungs are expanded and clear. There is no pleural effusion, pneumothorax, or pulmonary vascular congestion. The heart is normal in size. There is mild degenerative disc disease of the spine. XR/XR chest 2V IMPRESSION: No acute cardiopulmonary abnormality. Electronically signed by: Isak Kirk MD 12/08/2024 01:47 PM EDT
--- NOTE | 2024-12-08 12:42 | ECG_ITS ---
Test Reason : CHEST PAIN Blood Pressure : */* mmHG Vent. Rate : 88 BPM Atrial Rate : 88 BPM P-R Int : 112 ms QRS Dur : 104 ms QT Int : 380 ms P-R-T Axes : 29 14 7 degrees QTcB Int : 459 ms Normal sinus rhythm Moderate voltage criteria for LVH, may be normal variant ( R in aVL , Josep product ) Borderline ECG When compared with ECG of 12-Dec-2023 12:25, No significant change was found Referred By: Generic ED Physician Electronically Signed By: Samy Dye
[2024-12-08 12:45] VITALS: BP 118/71; PULSE 96; RESP 16; TEMP 36.8; O2SAT 96; BMI 25.6
--- NOTE | 2024-12-08 12:46 | ED_ITS ---
HPI - Chest Pain General Chief Complaint: Chest Pain Stated Complaint: chest pain Time Seen by Provider: 12/08/24 13:51 History of Present Illness ED Provider: Serenity MOY narrative: The patient is a 59-year-old female who has a history of chronic pain but does not have a history of smoking, diabetes, elevated cholesterol, hypertension, or any thromboembolic disease. She has been very sad recently. She is always sad before mother's day because her son at age 33 six years ago. She has been feeling very sad for the last week or 2 in anticipation of mother's day. Last night she developed chest pain that continued this morning and for which she thought she ought to be evaluated. She says she has had similar chest pains in the past when she has been upset. Related Data Home Medications ?Medication ?Instructions ?Recorded ?Confirmed loratadine 10 mg tablet (Allergy 10 mg PO DAILY 07/10/20 10/18/24 Relief (loratadine)) lorazepam 0.5 mg tablet (Ativan) 0.5 mg PO BID PRN 07/10/20 10/18/24 naloxone 4 mg/actuation nasal 4 mg intranasal Q2M PRN 07/10/20 10/18/24 spray (Narcan) oxycodone 10 mg tablet 10 mg PO Q6H PRN 07/10/20 10/18/24 zolpidem 10 mg tablet 10 mg PO BEDTIME PRN 07/10/20 10/18/24 diclofenac sodium 1 % topical gel 1 ea topical QID 05/21/22 10/18/24 acetaminophen 500 mg tablet 500 mg PO Q6H PRN mild pain 10/18/24 10/18/24 duloxetine 30 mg capsule,delayed mg PO DAILY 10/18/24 10/18/24 release meclizine 50 mg tablet 50 mg PO BID 10/18/24 10/18/24 Previous Rx's ?Medication ?Instructions ?Recorded ibuprofen 800 mg tablet 800 mg PO Q8H PRN for pain #90 tabs 06/02/23 camphor 3.1 %-methyl salicylate 10 1 patch topical DAILY PRN pain #6 10/18/24 %-menthol 6 % topical patch ea (large) (Salonpas) tizanidine 4 mg tablet 4 mg PO TID #90 tabs 11/14/24 Allergies Allergy/AdvReac Type Severity Reaction Status Date / Time morphine [MORPHINE] Allergy Intermediate RASH Verified 12/08/24 12:47 Review of Systems 2 Review of Systems: Yes all other systems are reviewed and are negative [facility] Past Medical History Medical History Acute shoulder pain Anxiety Myofascial pain syndrome Surgical History H/O excision of dermoid cyst H/O shoulder surgery History of cholecystectomy History of tubal ligation Social History Social History Alcohol intake: former Advance Directives: No Advance Directives Information Provided: Yes Do you have a plan to hurt others: No Plan Current occupational status: disabled Current occupation: left hand Physical Exam 2 Vital Signs: Vital Signs: Last Vital Signs Temp 98.3 F 12/08/24 14:20 Pulse 96 12/08/24 14:20 Resp 16 12/08/24 14:20 BP 118/71 12/08/24 14:20 Pulse Ox 96 12/08/24 14:20 O2 Del Method Room Air 12/08/24 14:20 BMI result Body Mass Index 25.6 Const: Other: The patient was awake and alert. She was tearful and crying. She did not seem in acute pain or any respiratory distress. Orientation/consciousness: patient oriented x3 HEENT: Other: Face is symmetrical, mucous membranes moist. Eyes: Other: Eyes were tearful but otherwise normal. Neck: Neck: Yes normal visual inspection, Yes full ROM and Yes no JVD Resp: Effort & Inspection: normal respiratory effort Auscultation: clear to auscultation bilaterally Cardio: Rate: regular rate Rhythm: regular rhythm Heart sounds: S1 normal heart sound present and S2 normal heart sound present GI: Other: Abdomen is soft and nontender Skin: General skin exam: no rashes or lesions noted Neuro: General: patient oriented x3, gait normal, tone normal, moves all extremities, no focal motor deficits and CN's II-XI intact bilaterally Extrem: Other: no ankle edema, no calf swelling or tenderness, no asymmetry Course Course Course Narrative: This is an RME performed by Milena Murphy CNP: Additional HPI, ROS, PE not included below will be deferred to primary provider. Patient is a female who presents emergency department for evaluation of chest pain onset 10:30 this morning shortly after waking up with associated shortness breath. Plan: Serum labs, EKG, CXR, viral serologies Medical Decision Making Medical Decision Making [facility] Narrative: the patient is a very pleasant but quite sad 59-year-old woman who is here for evaluation of nonpleuritic pressure-like chest pain that has been bothering her for several hours all day today and possibly last night as well. She was very tearful and reports that she finds any time around holidays difficult because her son 6 years ago at age 33. at the moment mother's Day is imminent. She always feels sad in the right up to mother's day because of her son's . She has been experiencing chest pain since yesterday evening that she thinks is probably related to her sadness but she felt she ought to get herself checked. She has had pain like this before. Clinically my suspicion for acute coronary syndrome is very low. Her EKG is unremarkable and unchanged from previous. She has an undetectable troponin after more than 5 hours of continuous chest discomfort. Her discomfort is nonpleuritic. I do not think she is having pulmonary embolism or other concerning acute vascular problem. I suspect that her symptoms are related to her sadness. She is not suicidal. She is comfortable being discharged. Lab Data 12/08/24 13:17 12/08/24 13:17 Labs: Lab Results 12/08/24 Range/Units 13:17 WBC 7.4 (4.8-10.8) X10*3/uL RBC 3.80 L (4.20-5.50) X10*6/uL Hgb 11.3 L (12.0-16.0) g/dl Hct 34.5 L (37.0-47.0) % MCV 90.8 (80.0-98.0) fL MCH 29.7 (27.0-33.0) pg MCHC 32.8 (31.0-35.0) g/dl RDW 13.1 (11.0-16.0) % Plt Count 291 (160-400) X10*3/uL MPV 10.2 (9.4-12.3) fL Immature Gran % (Auto) 0.3 (0.0-0.4) % Neut % (Auto) 54.1 (45-73) % Lymph % (Auto) 33.3 (20-40) % Glasscock % (Auto) 9.5 (2-11) % Eos % (Auto) 2.4 (0-4) % Baso % (Auto) 0.4 (0-2) % Lymph # (Auto) 2.5 (1.2-4.9) X10*3/uL Glasscock # (Auto) 0.7 (0.1-1.2) X10*3/uL Eos # (Auto) 0.2 (0.0-0.4) X10*3/uL Baso # (Auto) 0.0 (0.0-0.2) X10*3/uL Abs Immat Gran (auto) 0.02 (0.00-0.03) X10*3/uL Absolute Neuts (auto) 4.0 (2.0-8.3) x10*3/uL Absolute Nucleated RBC 0.000 (0.0-0.012) X10*3/uL Nucleated RBC % (auto) 0.0 (0.0-0.2) /100WBC Sodium 140 (135-145) mmol/L Potassium 3.7 (3.3-5.1) mmol/L Chloride 106 (96-108) mmol/L Carbon Dioxide 29 (22-29) mmol/L Anion Gap 9 L (12-20) BUN 12 (9-16) mg/dL Creatinine 0.71 (0.5-1.4) mg/dL Estim Creat Clear Calc 72.8 Estimated GFR > 60 Random Glucose 103 (60-115) mg/dL Calcium 9.0 (8.4-10.2) mg/dL Magnesium 2.1 (1.6-2.6) mg/dL Total Bilirubin 0.4 (0.0-1.0) mg/dL AST 22 (5-31) U/L ALT 16 (0-31) U/L Alkaline Phosphatase 87 (39-117) U/L Troponin I High Sens < 2.7 (<3.5-17.0) ng/L B-Natriuretic Peptide < 10 (<100) pg/mL Total Protein 7.3 (6.5-8.0) g/dL Albumin 3.9 (3.5-5.0) g/dL Influenza Type A (PCR) NEGATIVE (Negative) Influenza Type B (PCR) NEGATIVE (Negative) RSV RNA Qual (PCR) NEGATIVE (Negative) SARS-CoV-2 RNA (RT-PCR) NEGATIVE (Negative) Independent Interpretation I performed an independent interpretation of an: EKG Interpretation: EKG at 13:11 shows normal sinus rhythm at 88 beats per minute. No definite acute ischemic changes. No significant change from previous EKG. Discharge Plan Discharge Clinical Impression: Chest pain Patient Disposition: Home, Self-Care Instructions: Chest Pain (ED) Additional Instructions: Your testing in the emergency room today seems very reassuring. I think it is unlikely that your symptoms represent a heart attack or other dangerous process. Please continue your regular medications. Please plan on following up soon with your regular doctor for a 2nd opinion. Even though everything is looking good today I would recommend that if you feel significantly worse at any time please return to the emergency room for another evaluation. Prescriptions: No Action ibuprofen 800 mg tablet 800 mg PO Q8H PRN (Reason: for pain) Qty: 90 3RF tizanidine 4 mg tablet 4 mg PO TID Qty: 90 3RF Narcan 4 mg/actuation spray,non-aerosol 4 mg intranasal Q2M PRN Rx Instructions: spray 1 dose into ONE nostril; alternate nostrils w each dose until help arrives oxycodone 10 mg tablet 10 mg PO Q6H PRN lorazepam [Ativan] 0.5 mg tablet 0.5 mg PO BID PRN zolpidem 10 mg tablet 10 mg PO BEDTIME PRN loratadine [Allergy Relief (loratadine)] 10 mg tablet 10 mg PO DAILY diclofenac sodium 1 % gel 1 ea topical QID acetaminophen 500 mg tablet 500 mg PO Q6H PRN (Reason: mild pain) duloxetine 30 mg capsule,delayed release(DR/EC) PO DAILY meclizine 50 mg tablet 50 mg PO BID Salonpas 3.1 %-10 %-6 % (large) adhesive patch,medicated 1 patch topical DAILY PRN (Reason: pain) Qty: 6 12RF Rx Instructions: may leave on for up to 12 hrs Interventions: ED Discharge Assessment Last Done: 12/08/24 14:20 Discharge Date/Time: 12/08/24 14:21 Print Language: Greenlandic
[2024-12-08 13:25] LABS: Basophils Percent Auto 0.4 % (0-2); Eosinophils Absolute Auto 0.2 X10*3/uL (0.0-0.4); Eosinophils Percent Auto 2.4 % (0-4); Hematocrit 34.5 % (37.0-47.0); Hemoglobin 11.3 g/dl (12.0-16.0); Imm Gran Abs Auto 0.02 X10*3/uL (0.00-0.03); Imm Gran Pct Auto 0.3 % (0.0-0.4); Lymphocytes Absolute Auto 2.5 X10*3/uL (1.2-4.9); Lymphocytes Percent Auto 33.3 % (20-40); MANUAL DIFF FLAG NO; Mean Corpuscular HGB Conc 32.8 g/dl (31.0-35.0); Mean Corpuscular Hemoglobin 29.7 pg (27.0-33.0); Mean Corpuscular Volume 90.8 fL (80.0-98.0); Mean Platelet Volume 10.2 fL (9.4-12.3); Monocytes Absolute Auto 0.7 X10*3/uL (0.1-1.2); Monocytes Percent Auto 9.5 % (2-11); Neutrophils Percent Auto 54.1 % (45-73); Platelet Count 291 X10*3/uL (160-400); Red Cell Distribution Width 13.1 % (11.0-16.0); White Blood Count 7.4 X10*3/uL (4.8-10.8)
--- OUTSIDE RECORDS SUMMARY | 2024-12-08 13:38 | XMS_ITS | Encounter Summary ---
Author Organization [employer] Address [address] [place] [address] [address] [place] [address] Care Team Providers Care Sinker Puller Name Role Phone Laney Kirkpatrick MD Primary Care Provider + Reason for Visit * Reason Comments Med Change Request Encounter Details Date Type Department Care Team ([facility] Contact Info) Description 04/08/2023 Refill [facility] [address] [place], [place] [phone] Laney Kirkpatrick MD [address] [place], [place] [phone] Lumbar disc disease with radiculopathy Social History [...] Upcoming Encounters Date Type Department Care Team ([facility] Contact Info) Description 12/19/2024 1:00 PM EDT Nutrition [facility] [address] [place] [address] [place], [place] [phone] 12/25/2024 2:15 PM EDT Office Visit [facility] [address] [place] [phone] Laney Kirkpatrick MD [address] [place] [address] 01/05/2025 1:15 PM EDT Office Visit [facility] [address] [place] [address] Eladia Kaufman, OD [address] [place] [address] 01/08/2025 1:00 PM EDT Clinical Support [facility] [address] [place] [phone] Marysol Tovar, HAWK 01/19/2025 11:00 AM EDT Office Visit [facility] [address] [place] [phone] Danis Yanez MD [address] [place] [phone] documented as of this encounter Visit Diagnoses Diagnosis Lumbar disc disease with radiculopathy documented in this encounter Additional Health Concerns Assessment Noted Time PHQ-9 Depression Total Score: 7 11/10/19 23 3:56 PM EDT documented as of this encounter Care Teams Sinker Puller Relationship Specialty Start Date End Date Laney Kirkpatrick MD [address] [place] [phone] PCP - General Family Medicine 11/25/17 documented as of this encounter
--- OUTSIDE RECORDS SUMMARY | 2024-12-08 13:38 | XMS_ITS | Encounter Summary ---
Author Organization [employer] Address [address] [facility] 7[address] [place] [address] Care Team Providers Care Kai Whakaruruhau Name Role Phone Laney Kirkpatrick MD Primary Care Provider + Encounter Details Date Type Department Care Team ([facility] Contact Info) Description 12/08/2024 Orders Only GENERIC EXTERNAL DATA DEPARTMENT Provider, Generic External Data Social History Tobacco Use Types Packs/Day Years [...] Care Team (Late st Contact Info) Description 12/19/2024 1:00 PM EDT Nutrition [facility] DIABETES/NUTRITION [address] [place] [address] Alejandra Dodd, ENEDINA [address] [place] [address] 12/25/2024 2:15 PM EDT Office Visit [facility] MEDICINE [address] [place] [phone] Laney Kirkpatrick MD [address] [place] [phone] 01/05/2025 1:15 PM EDT Office Visit [facility] OPTOMETRY [address] [place] [address] Eladia Kaufman OD [address] [place] [address] 01/08/2025 1:00 PM EDT Clinical Support [facility] MEDICINE [address] [place] [phone] Marysol Tovar RN 01/19/2025 11:00 AM EDT Office Visit [facility] MEDICINE [address] [place] [phone] Danis Yanez MD [address] [place] [address] documented as of this encounter Procedures Procedure Name Priority Date/Time Associated Diagnosis Comments CBC WITH AUTO DIFFERENTIAL Routine 12/08/2024 1:17 PM EDT documented in this encounter Results * (ABNORMAL) CBC auto differential (12/08/2024 1:17 PM EDT) White Blood Count 7.4 4.8 - 10.8 X10*3/uL [facility] Red Blood Count 3.80(L) 4.20 - 5.50 X10*6/uL [facility] Hemoglobin 11.3(L) 12.0 - 16.0 g/dl [facility] Hematocrit 34.5(L) 37.0 - 47.0 % [facility] Mean Corpuscular Volume 90.8 80.0 - 98.0 fL [facility] Mean Corpuscular Hemoglobin 29.7 27.0 - 33.0 pg [facility] Mean Corpuscular HGB Conc 32.8 31.0 - 35.0 g/dl [facility] Red Cell Distribution Width 13.1 11.0 - 16.0 % [facility] Platelet Count 291 160 - 400 X10*3/uL [facility] Mean Platelet Volume 10.2 9.4 - 12.3 fL [facility] Neutrophils Percent Auto 54.1 45 - 73 % [facility] Imm Gran Pct Auto 0.3 0.0 - 0.4 % [facility] Lymphocytes Percent Auto 33.3 20 - 40 % [facility] Monocytes Percent Auto 9.5 2 - 11 % [facility] Eosinophils Percent Auto 2.4 0 - 4 % [facility] Basophils Percent Auto 0.4 0 - 2 % [facility] NRBC Pct Auto 0.0 0.0 - 0.2 /100WBC [facility] Neutrophils Absolute Auto 4.0 2.0 - 8.3 x10*3/uL [facility] Imm Gran Abs Auto 0.02 0.00 - 0.03 X10*3/uL [facility] Lymphocytes Absolute Auto 2.5 1.2 - 4.9 X10*3/uL [facility] Monocytes Absolute Auto 0.7 0.1 - 1.2 X10*3/uL [facility] Eosinophils Absolute Auto 0.2 0.0 - 0.4 X10*3/uL [facility] Basophils Absolute Auto 0.0 0.0 - 0.2 X10*3/uL [facility] NRBC Abs Auto 0.000 0.0 - 0.012 X10*3/uL [facility] 12/08/2024 1:17 PM EDT 12/08/2024 1:22 PM EDT us Generic External Data Provider LAB BLOOD ORDERAB LES Final Result [facility] [address] [place] [phone] [phone] documented in this encounter Visit Diagnoses Not on filedocumented in this encounter Additional Health Concerns Assessment Noted Time PHQ-9 Depression Total Score: 7 11/10/19 23 3:56 PM EDT documented as of this encounter Care Teams Kai Whakaruruhau Relationship Specialty Start Date End Date Laney Kirkpatrick MD [address] [place] [phone] PCP - General Family Medicine 11/25/17 documented as of this encounter
--- OUTSIDE RECORDS SUMMARY | 2024-12-08 13:38 | XMS_ITS | Encounter Summary ---
Author Organization [employer] [facility] Address [address] [place] [address] 7[address] [place] [address] Care Team Providers Care Emergency Medical Dispatcher Name Role Phone Laney Kirkpatrick MD Primary Care Provider + Reason for Visit * Reason Comments Med Refill Encounter Details Date Type Department Care Team ([facility] Contact Info) Description 03/02/2023 Refill [facility] [address] [place], [place] [phone] Adrienne Hernandez MD [address] [place], [place] [phone] Anxiety state Social History Tobacco Use Types [...] Upcoming Encounters Date Type Department Care Team ([facility] Contact Info) Description 12/19/2024 1:00 PM EDT Nutrition [facility] DIABETES/NUTRITION [address] [place] [address] [place] [address] 12/25/2024 2:15 PM EDT Office Visit [facility] [address] [place] [phone] Laney Kirkpatrick MD [address] [place] [address] 01/05/2025 1:15 PM EDT Office Visit [facility] OPTOMETRY [address] [place] [address] Eladia Kaufman, OD [address] [place] [address] 01/08/2025 1:00 PM EDT Clinical Support [facility] [address] [place] [phone] Marysol Tovar RN 01/19/2025 11:00 AM EDT Office Visit [facility] [address] [place] [phone] Danis Yanez MD [address] [place] [phone] documented as of this encounter Visit Diagnoses Diagnosis Anxiety state Anxiety state, unspecified documented in this encounter Additional Health Concerns Assessment Noted Time PHQ-9 Depression Total Score: 7 11/10/19 23 3:56 PM EDT documented as of this encounter Care Teams Emergency Medical Dispatcher Relationship Specialty Start Date End Date Laney Kirkpatrick MD [address] [place] [phone] PCP - General Family Medicine 11/25/17 documented as of this encounter
--- OUTSIDE RECORDS SUMMARY | 2024-12-08 13:38 | XMS_ITS | Clinical Summary ---
Author Organization [employer] Address [address] [facility] 7t [place] [address] Care Team Providers Care Crown Buffer Name Role Phone Laney Kirkpatrick MD Primary [...] AT BEDTIME 28 tablet 11/08/19 25 Active cyclobenzaprine (Flexeril) 10 MG tabletIndication s:Left arm pain,Right hip pain TAKE 1 TABLET BY MOUTH TWICE A DAY IF NEEDED FOR MUSCLE SPASMS 60 tablet 12/06/19 25 Active LORazepam (Ativan) 0.5 MG tabletIndication s:Anxiety state TAKE 1 TABLET BY MOUTH TWICE A DAY NEEDED IN THE MORNING AND AT BEDTIME FOR ANXIETY 56 tablet 12/06/19 25 2024 Active oxyCODONE (Roxicodone) 10 MG immediate release tabletIndication s:Cervical radiculopathy due to degenerative joint disease of spine Take 1 tablet (10 mg) by mouth every 6 (six) hours if needed for severe pain for up to 28 days. 112 tablet 12/06/19 25 2024 Active cyclobenzaprine (Flexeril) 10 MG tabletIndication s:Left arm pain,Right hip pain TAKE 1 TABLET BY MOUTH TWICE A DAY IF NEEDED FOR MUSCLE SPASMS 60 tablet 10/11/19 25 2024 Discontinued(R eorder (will not trigger notification to Pharmacy)) LORazepam (Ativan) 0.5 MG tabletIndication s:Anxiety state TAKE 1 TABLET BY MOUTH TWICE A DAY NEEDED IN THE MORNING AND AT BEDTIME FOR ANXIETY 56 tablet 10/26/19 25 2024 Discontinued(R eorder (will not trigger notification to Pharmacy)) oxyCODONE (Roxicodone) 10 MG immediate release tabletIndication s:Cervical radiculopathy due to degenerative joint disease of spine Take 1 tablet (10 mg) by mouth every 6 (six) hours if needed for severe pain for up to 28 days. 112 tablet 11/09/19 25 2024 Discontinued(R eorder (will not trigger [...] (04/13/2024 2:03 PM EDT): Refer again to [facility] pain clinic. Continue Oxycodone 10 mg Q [...] if lost or stolen. Follow up with [facility] nurse, she is do for Oxycodone refill [...] Encounters Date Type Department Care Team Description 12/08/2024 Orders Only GENERIC EXTERNAL DATA DEPARTMENT Provider, Generic External Data 12/08/2024 Telephone [facility] [address] [place] [address] Laney Kirkpatrick MD Nurse Triage 12/04/2024 Refill [facility] [address] [place] [address] Laney Kirkpatrick MD Left arm pain; Right hip pain; Anxiety state 12/04/2024 Refill [facility] [address] [place] [address] Laney Kirkpatrick MD Cervical radiculopathy due to degenerative joint disease of spine 11/30/2024 1:00 PM EDT Office Visit [facility] OPTOMETRY [address] [place] [address] Ashley Espinal, OD Dry eyes (Primary Dx); IFG (impaired fasting glucose); Combined forms of age-related cataract of both eyes; Astigmatism of both eyes with presbyopia 11/30/2024 Travel 11/24/2024 Telephone [facility] [address] [place] [address] Laney Kirkpatrick MD Results 11/22/2024 Orders Only [facility] [address] [place] [phone] Laney Kirkpatrick MD Anemia, unspecified type (Primary Dx); High liver transaminase level 11/10/2024 Telephone [facility] [address] [place] [address] Laney Kirkpatrick MD Appointment Request 11/09/2024 Telephone [facility] [address] [place] [phone] Laney Kirkpatrick MD Results 11/09/[address] [address] Laney Kirkpatrick MD Error (VOID this visit) 11/08/2024 2:15 PM EDT Office Visit [facility] [address] [place] [phone] Laney Kirkpatrick MD Poor appetite (Primary Dx); Sprain of anterior talofibular ligament of right ankle, initial encounter; Overweight; IFG (impaired fasting glucose); Dietary counseling; Exercise counseling; Screening for colon cancer 11/08/2024 Telephone [facility] [address] [facility] [place] [address] Laney Kirkpatrick MD Document 11/08/2024 Travel 11/07/2024 Refill [facility] [address] [place] [address] Laney Kirkpatrick MD Other insomnia 11/07/2024 Refill [facility] [address] [place] [address] Laney Kirkpatrick MD Cervical radiculopathy due to degenerative joint disease of spine 11/07/2024 Telephone [facility] [address] [place] [address] Laney Kirkpatrick MD Chart prep 10/24/2024 Refill [facility] [address] [place] [address] Laney Kirkpatrick MD Anxiety state 10/10/2024 Refill [facility] [address] [place] [address] Laney Kirkpatrick MD Left arm pain; Right hip pain 10/06/2024 Refill [facility] [address] [place] [address] Laney Kirkpatrick MD Other insomnia 10/06/2024 Refill [facility] [address] [place] [address] Laney Kirkpatrick MD Cervical radiculopathy due to degenerative joint disease of spine 09/21/2024 9:30 AM EST Clinical Support [facility] [address] [place] [address] Marysol Tovar RN Chronic low back pain with sciatica, sciatica laterality unspecified, unspecified back pain laterality (Primary Dx) 09/21/2024 Refill [facility] [address] [place] [address] La, Marysol, laundry technician rhinitis 09/21/2024 Travel 09/20/2024 1:30 PM EST Office Visit [facility] ADULT DENTAL [address] [place] [address] Pawel Pate DDS Chronic periodontitis (Primary Dx); Dental abscess; Retained dental root 09/15/2024 Telephone [facility] [address] [place], [place] [phone] Laney Kirkpatrick MD No Show 09/11/2024 Refill [facility] [address] [place], [place] [phone] Laney Kirkpatrick MD Cervical radiculopathy due to degenerative joint disease of spine from Last 3 Months Immunizations Name Administration [...] Info) Description 12/19/2024 1:00 PM EDT Nutrition [facility] DIABETES/NUTRITION [address] [place] [address] [place] [address] 12/25/2024 2:15 PM EDT Office Visit [facility] [address] [place] [address] Laney Kirkpatrick MD [address] [place] [address] 01/05/2025 1:15 PM EDT Office Visit [facility] OPTOMETRY [address] [place] [address] Eladia Kaufman, SARAH [address] [place] [address] 01/08/2025 1:00 PM EDT Clinical Support [facility] [address] [place] [phone] Marysol Tovar RN 01/19/2025 11:00 AM EDT Office Visit [facility] [address] [place] [phone] Danis Yanez MD [address] [place] [address] Health Maintenance Due Date Last Done Comments [...] 11/08/2025 11/08/2024, 11/10/19 Tobacco Screening 11/08/2025 11/08/2024 Diabetes: Hemoglobin A1C 11/21/2025 025, 03/23/2023, 04/04/2021 HPV/Cotest 05/28/2026 05/28/2021 Pap Smear 05/28/2026 05/28/2021 [...] AUTO DIFFERENTIAL Routine 12/08/2024 1:17 PM EDT HEMOGLOBIN A1C Routine 11/21/2024 11:31 AM EDT Poor appetite IFG (impaired fasting glucose) COMPREHENSIVE METABOLIC PANEL Routine 11/21/2024 11:31 AM EDT Poor appetite IFG (impaired fasting glucose) LIPID PANEL WITH REFLEX TO DIRECT LDL Routine 11/21/2024 11:31 AM EDT IFG (impaired fasting glucose) CBC WITH AUTO DIFFERENTIAL Routine 11/21/2024 11:31 AM EDT Poor appetite XR ANKLE 3+ VIEWS RIGHT Routine 11/08/2024 [...] Recently Relevant to Health Maintenance Results * (ABNORMAL) CBC auto differential (12/08/2024 1:17 PM EDT) Only the most recent of2 resultswithin the time period is included. White Blood Count 7.4 4.8 - 10.8 X10*3/uL [facility] Red Blood Count 3.80(L) 4.20 - 5.50 X10*6/uL [facility] Hemoglobin 11.3(L) 12.0 - 16.0 g/dl [facility] Hematocrit 34.5(L) 37.0 - 47.0 % [facility] Mean Corpuscular Volume 90.8 80.0 - 98.0 fL [facility] Mean Corpuscular Hemoglobin 29.7 27.0 - 33.0 pg [facility] Mean Corpuscular HGB Conc 32.8 31.0 - 35.0 g/dl [facility] Red Cell Distribution Width 13.1 11.0 - 16.0 % [facility] Platelet Count 291 160 - 400 X10*3/uL [facility] Mean Platelet Volume 10.2 9.4 - 12.3 fL [facility] Neutrophils Percent Auto 54.1 45 - 73 % [facility] Imm Gran Pct Auto 0.3 0.0 - 0.4 % [facility] Lymphocytes Percent Auto 33.3 20 - 40 % [facility] Monocytes Percent Auto 9.5 2 - 11 % [facility] Eosinophils Percent Auto 2.4 0 - 4 % [facility] Basophils Percent Auto 0.4 0 - 2 % [facility] NRBC Pct Auto 0.0 0.0 - 0.2 /100WBC [facility] Neutrophils Absolute Auto 4.0 2.0 - 8.3 x10*3/uL [facility] Imm Gran Abs Auto 0.02 0.00 - 0.03 X10*3/uL [facility] Lymphocytes Absolute Auto 2.5 1.2 - 4.9 X10*3/uL [facility] Monocytes Absolute Auto 0.7 0.1 - 1.2 X10*3/uL [facility] Eosinophils Absolute Auto 0.2 0.0 - 0.4 X10*3/uL [facility] Basophils Absolute Auto 0.0 0.0 - 0.2 X10*3/uL [facility] NRBC Abs Auto 0.000 0.0 - 0.012 X10*3/uL [facility] 12/08/2024 1:17 PM EDT 12/08/2024 1:22 PM EDT us Generic External Data Provider LAB BLOOD ORDERAB LES Final Result [facility] [address] [place] [address] [phone] * Lipid Panel with Reflex to Direct LDL (11/21/2024 11:31 AM EDT) Triglycerides 128 <150 mg/dL [facility] Comment:Desirable Triglyceri de: less than 150 mg/dLBorderline High Triglyceride 150-199 mg/dLHigh Triglyceride: 200-499 mg/dLVery High Triglyceride: greater than or equal to 5OO mg/dL Cholesterol 177 <200 mg/dL [facility] Comment:Desirable Cholestero l: less than 200 mg/dLBorderline High Cholesterol: 200-239 mg/dLHigh Cholesterol: greater than 239 mg/dL LDL Cholesterol Calculated 91 <100 mg/dL [facility] Comment:Desirable LDL: less than 100 mg/dLNear Optimal/Above Optimal LDL: 110- 129 mg/dLBorderline High LDL: 130-159 mg/dLHigh LDL: 160-189 mg/dLVery High LDL: greater than or equal to 190 mg/dL HDL Cholesterol 61 >40 mg/dL [facility] Comment:Desirable HDL: great er than 40 mg/dL Note: This HDL assay may give artificially low results in patients with liver disease. Blood 11/21/2024 11:3 1 AM EDT 11/21/2024 1:22 PM EDT Laney Kirkpatrick MD LAB BLOOD ORDERABLES Fin al Result [facility] [address] [place] [phone] * (ABNORMAL) Hemoglobin A1c (11/21/2024 11:31 AM EDT) Hemoglobin A1c 6.3(H) <6.0 % [facility] Comment:Hemoglobin A1C Refer ence Range Adults: 4.8 - 6.0 % Non diabetic: < 6.0 % Goal: < 7.0 %Additional Action Suggested: > 8.0 %Note: Hemoglobin A1c results are invalid for patients with abnormal amounts of HbF. Blood transfusions may impact the HbA1c concentration in the patient sample. Estimated Average Glucose 134 mg/dL [facility] Comment:eAG = Estimated ave rage glucose which is %A1C expressed asaverage glucose, using the formula of the [id number] Glucose study (ADAG), Diabetes Care, Vol.31,#8,2007 Blood Venous blood specimen / Unknown 11/21/2024 11:31 AM EDT 11/21/2024 1:13 PM EDT us Laney Kirkpatrick MD LAB BLOOD ORDERABLES Fin al Result [facility] [address] [place] [phone] * (ABNORMAL) Comprehensive Metabolic Panel (11/21/2024 11:31 AM EDT) Sodium 137 135 - 145 mmol/L [facility] Potassium 3.7 3.3 - 5.1 mmol/L [facility] Chloride 104 96 - 108 mmol/L [facility] Carbon Dioxide 28 22 - 29 mmol/L [facility] Anion Gap 9(L) 12 - 20 [facility] Urea Nitrogen (BUN) 15 9 - 16 mg/dL [facility] Creatinine, Serum 0.71 0.5 - 1.4 mg/dL [facility] Estimated Glomerular Filt Rate >60 [facility] Comment:Chronic Kidney Disea se: Estimated GFR < 60 mL/min/1.94z6Quwyts Kidney Disease: Estimated GFR < 15 mL/min/1.73m2 Glucose 101 60 - 115 mg/dL [facility] Calcium 9.2 8.4 - 10.2 mg/dL [facility] Bilirubin, Total 0.4 0.0 - 1.0 mg/dL [facility] Aspartate Amino Transferase 35(H) 5 - 31 U/L [facility] Alanine Aminotransferase 19 0 - 31 U/L [facility] Total Protein 7.5 6.5 - 8.0 g/dL [facility] Albumin Level 3.7 3.5 - 5.0 g/dL [facility] Alkaline Phosphatase 86 39 - 117 U/L [facility] Blood Venous blood specimen / Unknown 11/21/2024 11:31 AM EDT 11/21/2024 1:22 PM EDT us Laney Kirkpatrick MD LAB BLOOD ORDERABLES Fin al Result [facility] [address] [facility] [place] [address] [phone] * XR Ankle 3+ Views Right (11/08/2024 2:43 PM EDT) Anatomical Region Laterality Modality Lower Extremities, Ankle Right Radiogr aphic Imaging 11/08/2024 2:43 PM EDT Narrative 11/08/2024 3:07 PM EDT ?[facility] ?[address] ?[place] [address] ?XRay Report ? Signed ? Patient: Aldo,Ivett Y ?MR#: [id number] ?? [id number] ? : 1965 ?Acct:[id number] ? Age/Sex: 59 / F ?ADM Date: 11/08/24 ? Loc: HO.HHCX ? Attending Dr: Laney Kirkpatrick MD ? Ordering Physician: Laney Kirkpatrick MD ?? Date of Service: 11/08/24 ?? Procedure(s): XR ankle RT min 3V ?? Accession Number(s): [id number] ? cc: Laney Kirkpatrick MD ? EXAMINATION: [...] DD/ 1443 ? TD/TT: 11/08/24 1453 ? Part Time: ? Procedure Note Prashantter, Image - 11/08/[address] [address] XRay Report Signed Patient: Ivett Carlson YMR#: [id number] : 1965Acct:[id number] Age/Sex: 59 / FADM Date: 11/08/24 Loc: HO.HHCX Attending Dr: Laney Kirkpatrick MD Ordering Physician: Laney Kirkpatrick MD Date of Service: 11/08/24 Procedure(s): XR ankle RT min 3V Accession Number(s): [id number] cc: Laney Kirkpatrick MD EXAMINATION: XR ANKLE, [...] Spike Melgar MD 11/08/2024 03:05 PM EDT RP Dictated By: Spike Melgar MD Signed By: <Electronically signed by Spike Melgar MD in OV> 11/08/24 1505 DD/ 1443 TD/TT: 11/08/24 1453 Part Time: us Laney Kirkpatrick MD IMG XR PROCEDURES Final Result * POCT BAUDILIO-14 Urine Drug Screen (09/21/2024 9:53 AM EST) Benzodiazepines Screen, Urine Positive TCA, Urine Positive Oxycodone Screen, Urine Positive Urine Urine specimen obtained by clean catch procedure / Unknown 09/21/2024 9:53 AM EST Narrative Marysol Tovar RN - 09/21/2024 9:53 AM EST UTOX cup Lot#[id number] Exp. 03/28/26 Internal Pass Control us Laney Kirkpatrick MD POINT OF CARE TEST ENTER /EDIT ORDERABLES Final Result * BI Mammogram Screening Tomosynthesis Bilateral (06/05/2024 1:00 PM EDT) Anatomical Region Laterality Modality Breast Bilateral Mammography 06/05/2024 1:00 PM EDT Narrative 06/13/2024 3:12 PM EST ? [facility] ? [address] ?[place] [address] ? Mammography Report ? Signed ? Patient: Aldo,Ivett Y ?MR#: [id number] ?? [id number] ? : 1965 ?Acct:[id number] ? Age/Sex: 58 / F ?ADM Date: 10/28/24 ? Loc: HO.MAMMO ? Attending Dr: Laney Kirkpatrick MD ? Ordering Physician: Laney Kirkpatrick MD ?Results: 1Ne ?? gative ? Date of Service: 06/05/24 ?Follow Up: 1 Year From Orig ?? inal Mammogram ? Procedure(s): MM tomosynthesis screening BI ?? Accession Number(s): [id number] ? cc: Laney Kirkpatrick MD ? EXAMINATION: [...] their next mammogram. ? Electronically signed by: ??vEa Rosales DO ??06/13/2024 03:09 PM EST ?? RP ? Dictated By: ?Eva Rosales DO ? Signed By: ?<Electronically signed by Eva Rosales, DO in OV> ? 06/13/24 1509 ? DD/ 1300 ? TD/TT: 06/05/24 1315 ? Part Time: ? Procedure Note Donotuseinterpreter, Image - 06/13/2024 [facility] [address] [place], [place] [address] Mammography Report Signed Patient: Ivtet Carlson YMR#: [id number] 729 : 1965Acct:[id number] Age/Sex: 58 / FADM Date: 06/05/24 Loc: HO.MAMMO Attending Dr: Laney Kirkpatrick MD Ordering Physician: Laney Kirkpatrick MDResults: 1Ne gative Date of Service: 06/05/24Follow Up: 1 Year From Orig inal Mammogram Procedure(s): MM tomosynthesis screening BI Accession Number(s): [id number] cc: Laney Kirkpatrick MD EXAMINATION: MM SCREENING [...] by: Eva Rosales DO 06/13/2024 03:09 PM [facility] Dictated By: Eva Rosales DO Signed By: <Electronically signed by Eva Rosales DO in OV> 06/13/24 1509 DD/ 1300 TD/TT: 06/05/24 1315 Part Time: Laney Kirkpatrick MD IMG BI PROCEDURES Final Result * Hepatitis Panel, General (04/13/2024 1:15 PM EDT) Hepatitis A IgM Nonreactive Nonreactive [facility] Comment:IgM antibodies to WISE V not detected; does not exclude earlyacute or recovered HAV infection. ~Hepatitis B Surface Antibody REACTIVE Nonreactive [facility] Comment:REACTIVE: > 11.99 mI U/mL Hepatitis B Core Antibody Reactive Nonreactive [facility] Comment:Presumptive evidence of anti-HBc. Hepatitis C Antibody Nonreactive Nonreactive [facility] Comment:Antibodies to HCV no t detected; does not exclude early acuteHCV infection. Hepatitis B Surface Ag Negative Negative [facility] Blood 04/13/2024 1:15 PM EDT 04/13/2024 4:22 PM EDT Laney Kirkpatrick MD LAB BLOOD ORDERABLES Fin al Result [facility] [address] [place] [phone] * HIV-1/2 Antigen and Antibodies, Fourth Generation, with Reflexes (04/13/2024 1:15 PM EDT) Pathologist [facility] HIV AB/AG Nonreactive Nonreactive [facility] Comment:HIV-1 p24 Ag and/or HIV-1/HIV-2 Ab not detected.A test result that is nonreactive does not exclude thepossibility of exposure to or infection with HIV-1 and/orHIV-2. Nonreactive results in this assay for individualswith prior exposure to HIV-1 and/or HIV-2 may be due toantigen and antibody levels that are below the limit ofdetection of this assay.The Qwaq HIV Ag/Ab Combo assay result andsupplemental assay results should be interpreted inconjunction with the patient's clinical presentation,history and other laboratory results. If the results areinconsistent with clinical evidence, additional testing issuggested to confirm the result. Blood Venous blood specimen / Unknown 04/13/2024 1:15 PM EDT 04/13/2024 4:22 PM EDT Laney Kirkpatrick MD LAB BLOOD ORDERABLES Fin al Result [facility] [address] [place] [address] [phone] * THINPREP TIS PAP AND HPV mRNA E6/E7, CT/NG, TRICH (05/28/2021 12:00 AM EDT) Chlamydia trachomatis RNA, TMA, Urogenital NOT DETECTED NOT DETECTED [facility] Clinical Information: None given [facility] COMMENT [facility] Comment: The analytical performance characteristics of this assay, when used to test SurePath(TM) specimens have been determined by [employer]. The modifications have not been cleared or approved by the FDA. This assay has been validated pursuant to the CLIA regulations and is used for clinical purposes. ?? For additional information, please refer to https://education.Covocative/faq/PJG537 (This link is being provided for information/ [...] has been evaluated with computer assisted technology. [facility] Loan Service Officer: SEE COMMENT [facility] Comment: RMM, CT(ASCP) CT screening location: [address] ??[phone] HPV nRNA E6/E7 Not Detected Not Detected [facility] Comment: Methodology: Ac[employer]-Mediated Amplification This assay detects E6/E7 viral messenger RNA (mRNA) from 14 high-risk HPV types (16,18,31,33,35,39,45,51,52,56,58,59,66,68). ? The analytical performance characteristics of this assay have been determined by [employer]. The modifications have not been cleared or approved by the FDA. This assay has been validated pursuant to the CLIA regulations and is used for clinical purposes. ?? For additional information, please refer to http://[employer]ios.Covocative/faq/TMJ423z5 (This link if provided for information/ educational purposes only.) Interpretation/Res ult: [facility] Comment: Negative for intraepithelial lesion [...] of this assay have been determined by [employer]. The modifications have not been cleared or approved by the FDA. This assay has been validated pursuant to the CLIA regulations and is used for clinical purposes. ?? For additional information, please refer to http://Nomios.Covocative/ faq/Trichomonastma (This link is being provided for information/ educational purposes only.) ?? 05/28/2021 Laney Kirkpatrick MD LAB PATHOLOGY ORDERABLES Final Result [facility] [address] from Last 3 Months or Most Recently Relevant to Health Maintenance Insurance [facility] < [facility] Care Teams Crown Buffer Relationship Specialty Start Date End Date Laney Kirkpatrick MD [address] [place] [phone] PCP - General Family Medicine 11/25/17
--- OUTSIDE RECORDS SUMMARY | 2024-12-08 13:38 | XMS_ITS | Encounter Summary ---
Author Organization [employer] Address [address] [facility] 7t [place] [address] Care Team Providers Care Support Engineer Name Role Phone Laney Kirkpatrick MD Primary Care Provider + Reason for Visit * Reason Onset Date Comments Med Refill 12/04/2024 Encounter Details Date Type Department Care Team ([facility] st Contact Info) Description 12/04/2024 Refill [facility] MEDICINE [address] [place] [address] Laney Kirkpatrick MD [address] [place] [address] Left arm pain; Right hip pain; Anxiety state Social History Tobacco Use Types [...] encounter Miscellaneous Notes * Telephone Encounter - Jose Ramon Connell - 12/04/2024 4:21 PM EDT TC from pt requesting medication refill. Medications needing refill : cyclobenzaprine (Flexeril) 10 MG tablet LORazepam (Ativan) 0.5 MG tablet To be sent to: [facility]/pharmacy [address] [place] [address] documented in this encounter Plan of Treatment Upcoming Encounters Date Type Department Care Team (Late st Contact Info) Description 12/19/2024 1:00 PM EDT Nutrition [facility] DIABETES/NUTRITION [address] [place] [address] [place] [address] 12/25/2024 2:15 PM EDT Office Visit [facility] MEDICINE [address] [place] [address] Laney Kirkpatrick MD [address] [place] [address] 01/05/2025 1:15 PM EDT Office Visit [facility] OPTOMETRY [address] [place] [address] Eladia Kuafman, OD [address] [place] [address] 01/08/2025 1:00 PM EDT Clinical Support [address] [address] Marysol Tovar RN 01/19/2025 11:00 AM EDT Office Visit [address] [address] Danis Yanez MD [address] [place] [phone] documented as of this encounter Visit Diagnoses Diagnosis Left arm pain Pain in soft tissues of limb Right hip pain Pain in joint, pelvic region and thigh Anxiety state Anxiety state, unspecified documented in this encounter Additional Health Concerns Assessment Noted Time PHQ-9 Depression Total Score: 7 11/10/19 23 3:56 PM EDT documented as of this encounter Care Teams Support Engineer Relationship Specialty Start Date End Date Laney Kirkpatrick MD [address] [place] [phone] PCP - General Family Medicine 11/25/17 documented as of this encounter
--- OUTSIDE RECORDS SUMMARY | 2024-12-08 13:38 | XMS_ITS | Encounter Summary ---
Author Organization [employer] Address 75 [facility] 7t [place] [address] Care Team Providers Care Exploitation Analyst Name Role Phone Laney Kirkpatrick MD Primary Care Provider + Encounter Details Date Type Department Care Team ([facility] Contact Info) Description 03/12/2023 Orders Only [facility] MEDICINE [address] [place], [place] [phone] Laney Kirkpatrick MD 230 [place] [address] Social History Tobacco Use Types Packs/Day Years [...] Encounters Date Type Department Care Team (Late Contact Info) Description 12/19/2024 1:00 PM EDT Nutrition [facility] DIABETES/NUTRITION [address] [place] [address] [place] [address] 12/25/2024 2:15 PM EDT Office Visit [facility] MEDICINE [address] [place] [address] Laney Kirkpatrick MD 230 [place] [address] 01/05/2025 1:15 PM EDT Office Visit [facility] OPTOMETRY [address] [place] [address] Eladia Kaufman, OD 267 [place] [address] 01/08/2025 1:00 PM EDT Clinical Support [facility] MEDICINE [address] [place] [address] Marysol Tovar RN 01/19/2025 11:00 AM EDT Office Visit [facility] MEDICINE [address] [place] [address] Danis Yanez MD [address] [place] [address] documented as of this encounter Visit Diagnoses Not on filedocumented in this encounter Additional Health Concerns Assessment Noted Time PHQ-9 Depression Total Score: 7 11/10/19 23 3:56 PM EDT documented as of this encounter Care Teams Exploitation Analyst Relationship Specialty Start Date End Date Laney Kirkpatrick MD [address] [place] [address] [phone] PCP - General Family Medicine 11/25/17 documented as of this encounter
--- OUTSIDE RECORDS SUMMARY | 2024-12-08 13:38 | XMS_ITS | Encounter Summary ---
Author Organization [employer] Address 75 [facility] 7t [place] [address] Care Team Providers Care Counter Helper Name Role Phone Laney Kirkpatrick MD Primary Care Provider + Reason for Visit * Reason Onset Date Comments Med Refill 07/09/2022 Encounter Details Date Type Department Care Team ([facility] Contact Info) Description 07/09/2022 Telephone [facility] MEDICINE [address] [place], [place] [phone] Laney Kirkpatrick MD 230 [place] [address] Med Refill Social History Tobacco Use Types [...] Info) Description 12/19/2024 1:00 PM EDT Nutrition [facility] DIABETES/NUTRITION 230 [place] [address] Alejandra Dodd, ENEDINA 230 [place] [address] 12/25/2024 2:15 PM EDT Office Visit [facility] MEDICINE [address] [place] [address] Laney Kirkpatrick MD 230 [place] [address] 01/05/2025 1:15 PM EDT Office Visit [facility] OPTOMETRY [address] [place] [address] Eladia Kaufman, OD 267 [place] [address] 01/08/2025 1:00 PM EDT Clinical Support [facility] [address] [place] [address] Marysol Tovar, HAWK 01/19/2025 11:00 AM EDT Office Visit [facility] MEDICINE [address] [place] [address] Danis Yanez MD [address] [place] [address] documented as of this encounter Visit Diagnoses Not on filedocumented in this encounter Care Teams Counter Helper Relationship Specialty Start Date End Date Laney Kirkpatrick MD [address] [place] [address] PCP - General Family Medicine 11/25/17 documented as of this encounter
--- OUTSIDE RECORDS SUMMARY | 2024-12-08 13:38 | XMS_ITS | Data Portability ---
Author Organization [employer] Address [address] [place] [address] Care Team Providers Care Wafer Polishing Lead Worker Name Role Phone [facility] [employer] Referring Provider HIM CCA OTHER Assessment Encounter Date Assessment Date Assessment LastModified by Organization Details LastModified Time 02/16/2023 02/16/2023 I provided real -time medical direction via phone for this encounter, and was available for additional phone based assistance as needed. I have reviewed and agree with the Assessment and Plan as documented by the [employer]. Patient given the opportunity to ask questions. [...] verbalized understanding of instructions to the medic. [email or web address] Not available 02/16/2023 13:09:13 05/04/2024 05/04/2024 As noted, we were called to see this patient regarding concerns of palm lesion. Evaluation in the field was performed by my humanities coordinator colleague, as noted above, I provided [...] Assessment and Plan as documented by the [employer]. Patient given the opportunity to ask questions. Our service contacted for an assessment of: Viral URI symptoms As per above, patient with approximately several days of viral URI symptoms. Denies fever or chills. Denies chest pain, shortness of breath, dyspnea on exertion. Positive nasal congestion and dry cough. Positive sick contacts. Per humanities coordinator on the scene, vital signs are stable and patient is afebrile. Minimal wheezing heard on exam. COVID and Flu are both negative. No increased work of breathing and no distress. Impression: Common cold and viral URI Plan: Continue with [id number] medications to control symptoms. Red flags discussed [...] Lab rapid flu (A+B) [email or web address], [address] 21:20:45 rapid SARS CoV 2 Ag, QL IA, respiratory specimen [email or web address] [facility], [address] [place] [address], [phone] 5 21:20:44 Referral None recorded. Procedures None recorded. Surgeries None recorded. Imaging None recorded. Medication Orders ketorolac 30 mg/mL injection solution 2022 023 [email or web address] 0 Not available 3 13:18:38 ibuprofen 600 mg tablet 2022 023 [id number], [address] [place], [address], 3 13:18:40 cyclobenzap rine 5 mg tablet 2022 023 [id number], [address] [place], [address], 3 13:18:40 Patient TargetsNo targets recorded. Patient InstructionsNo instructions recorded. Reason for Referral None Reported. Results Created Date Observation Date Name Description Value Unit Range Abnormal Flag Note LastModifiedBy Organization Detail LastModifiedTime 08/16/19 25 08/16/2024 rapid SARS CoV 2 Ag, QL IA, respi rator y speci men rapid SARS CoV 2 Ag, QL IA, respiratory specimen negati ve Not Available [facility] ed [address] [place] [address], [phone] 08/16/2024 21:20:15 08/16/19 25 08/16/2024 rapid flu (A+B) Flu negati ve Not Available [facility] ed [address] [place] [address], [phone] 08/16/2024 21:20:13 Result Notes None recorded. Medical [...] /min 110 mm[Hg] 69 mm[Hg] Not Available [employer] 3 12:44:50 Date Recorded Body weight Provider Name an d Address Organization Details Last Updated DateTime 02/16/2023 49845.97 g Anita Fields [address] [place] [address],[address], [place], [phone], [place] - [employer] [facility] 02/16/2023 12:57:51 Date Recorded Respiratory rate Body weight Heart rate Body temperature Oxygen saturation Oxygen saturation in Arterial blood by Pulse oximetry Systolic blood pressure Diastolic blood pressure Provider Name and Address Organization Details Last Updated DateTime 4 16 /min 83650.6 16 g 88 /min 98.2 [degF] 98 % 98 % 108 mm[Hg] 64 mm[Hg] Not Available [employer] 4 20:22:04 Date Recorded Oxygen saturation Oxygen saturation in Arterial blood by Pulse oximetry Body temperature Heart rate Respiratory rate Systolic blood pressure Diastolic blood pressure Provider Name and Address Organization Details Last Updated DateTime 5 99 % 99 % 98.1 [degF] 89 /min 16 /min 122 mm[Hg] 78 mm[Hg] Not Available [employer] 5 21:18:56 Social History None recorded. Functional Status None recorded. Mental Status None recorded. Family History Nothing Reported. Medical History No medical history recorded. Gynecological HistoryNo gynecological history recorded. Obstetrics History GPAL:G 0 P 0 0 0 0 Past Encounters Encounter ID Performer Location Encounter Start Date Encounter Closed Date Diagnosis/Indication Diagnosis SNOMED-CT Code Diagnosis ICD10 Code Diagnosis Note [id number] Thao Love MD [facility] [employer] [address] [place] [phone] 02/16/2023 12:44:48 02/17/2023 10:53:07 Acute low back pain 163536683 M54.50 on top of chronic with wht [...] verbalized understand ing to the medic Pain 34179432 R52 as above- advised cannot do mutliple ketorolac injections /multiple days in a row due to renal and GI effects/ri sks but can repeat injection 2 x- 3x / week short term [id number] Katlyn Oscar MD [facility] [address] [place] [phone] 05/04/2024 20:21:59 05/04/2024 23:24:04 Skin lesion 83076810 L98.9 [id number] Anca Russell MD [facility] [address] [place] [phone] 08/16/2024 21:18:54 08/16/2024 22:17:37 Common cold 89816149 J00 Health Concerns Section Related Observation LastModified by Organization Detai ls LastModified Time None Recorded Concern Status LastModified by Organization Details LastModified Time None Recorded Advance Directives Directive None Recorded Payers Encounter Date Sequence Insurance Name Policy Number Policy Blue Covered Member ID Blue Member ID Guarantor Name 02/16/2023 1 [facility] [employer] - DOS ON OR AFTER 2022 - DUAL ELIGIBLE - SENIOR LIVING OPTIONS AND ONE CARE (MEDICARE REPLACEMENT/ADV ANTAGE - HMO) Ivett Carlson [id number] Ivett Y Aldo 05/04/2024 1 [facility] [employer] - DOS ON OR AFTER 2022 - DUAL ELIGIBLE - SENIOR LIVING OPTIONS AND ONE CARE (MEDICARE REPLACEMENT/ADV ANTAGE - HMO) Ivett Carlson [id number] Ivett Y Aldo 08/16/2024 1 [facility] [employer] - DOS ON OR AFTER 2022 - DUAL ELIGIBLE - SENIOR LIVING OPTIONS AND ONE CARE (MEDICARE REPLACEMENT/ADV ANTAGE - HMO) Ivett Carlson [id number] Ivett Y Aldo Notes Date Note Type [...] .................... .................... .................... .................... .................... .................... ..... [employer] Note From Peace Vazquez: Community [employer] Russell Vazquez CCA1 dispatched to a [facility] for a 57 yof C/O right [...] .................... . Disposition: Conrado Love MD [address] [facility],[address], [place], [address], [place] NUHA CHAND 02/16/2023 16:39:55 05/04/2024 text/html [...] information needed to process visit -Merle Umana [id number] Medic unable to reach, CRC RN left [facility] HPI: rash, right palm, when to PCP clinic, got steroid cream. applying four times per day for two weeks. not improving. itching. tender.............. .................... .................... .................... .................... .................... .................... ........ [employer] Note From Deric Pruitt: Pt co continued [...] vitals assessed WNL, afebrile, photos uploaded , [facility] contacted and advised pt to discontinue use of ointment and contact pcp for referral to dermatology. Pt agreeable , pt sts will call pcp in the morning . Pt education on signs indicating the ER. .................... .................... .................... .................... .................... .................... .................... . Disposition: Fulfilled Katlyn Oscar MD [address] [place] [address],[address], [place], [address], [employer] 05/04/2024 21:29:00 08/16/2024 text/html HPI: Patient with [...] Reviewed at 08/16/2024:52 Comments: HPI reviewed- [place] [employer] Organization Information for Arya Ruano JUSTIN Elli Legal Name: [employer]? Address: [address] [place] [address], [facility]: Flavio CORTES No.: [id number] [employer] POC Test Results from Arya Ruano Rapid COVID antigen (19:34:03) COVID: - Rapid influenza antigen (19:34:07) Flu: - .................... .................... .................... .................... .................... .................... .................... . [employer] Note From Arya Ruano: Dispatched to the [...] PERRL, afebrile, lungs CTA, Rapid Covid/Flu (-). [facility] consulted. Pt advised to treat her symptoms with OTC medication and follow up with PCP or call back in a few days if she feels she wants to be re-evaluated. Red flags discussed. ALL times are approx. .................... .................... .................... .................... .................... .................... .................... . [facility] Consulted: Anca Russell .................... .................... .................... .................... .................... .................... .................... . Disposition: Fulfilled Anca Russell MD [address] [place] [address],[address] [facility], [place], [phone], [employer] 08/16/2024 21:21:10 OBGyn Episode No OBEpisode recorded.
--- OUTSIDE RECORDS SUMMARY | 2024-12-08 13:38 | XMS_ITS | Encounter Summary ---
Author Organization [employer] Address 75 [facility] 7t [place] [address] Care Team Providers Care Web Site Manager Name Role Phone Laney Kirkpatrick MD Primary Care Provider + Encounter Details Date Type Department Care Team ([facility] Contact Info) Description 12/18/2022 Orders Only [facility] MEDICINE [address] [place] [address] Laney Kirkpatrick MD [address] [place] [address] Social History Tobacco Use Types Packs/Day Years [...] Upcoming Encounters Date Type Department Care Team ([facility] Contact Info) Description 12/19/2024 1:00 PM EDT Nutrition [facility] DIABETES/NUTRITION [address] [place] [address] Alejandra Dodd, RD 230 [place] [address] 12/25/2024 2:15 PM EDT Office Visit [facility] MEDICINE [address] [place] [address] Laney Kirkpatrick MD [address] [place] [address] 01/05/2025 1:15 PM EDT Office Visit [facility] OPTOMETRY [address] [place] [address] Eladia Kaufman, OD 267 [place] [address] 01/08/2025 1:00 PM EDT Clinical Support [facility] MEDICINE [address] [place] [address] Marysol Tovar RN 01/19/2025 11:00 AM EDT Office Visit [facility] MEDICINE [address] [place] [address] Danis Yanez MD 230 [place] [address] documented as of this encounter Visit Diagnoses Not on filedocumented in this encounter Additional Health Concerns Assessment Noted Time PHQ-9 Depression Total Score: 7 11/10/19 23 3:56 PM EDT documented as of this encounter Care Teams Web Site Manager Relationship Specialty Start Date End Date Laney Kirkpatrick MD [address] [place] [address] PCP - General Family Medicine 11/25/17 documented as of this encounter
--- OUTSIDE RECORDS SUMMARY | 2024-12-08 13:38 | XMS_ITS | Encounter Summary ---
Author Organization [employer] [facility] Address [address] [place] [address] 7t [place] [address] Care Team Providers Care Trap Operator Name Role Phone Laney Kirkpatrick MD Primary Care Provider + Reason for Visit * Reason Comments Med Refill Encounter Details Date Type Department Care Team ([facility] Contact Info) Description 04/21/2023 Refill [facility] MEDICINE [address] [place], [place] [phone] Laney Kirkpatrick MD 230 [place], [place] [phone] Anxiety state Social History Tobacco Use Types [...] Upcoming Encounters Date Type Department Care Team ([facility] Contact Info) Description 12/19/2024 1:00 PM EDT Nutrition [facility] DIABETES/NUTRITION [address] [place] [address] [place] [address] 12/25/2024 2:15 PM EDT Office Visit [facility] MEDICINE [address] [place] [address] Laney Kirkpatrick MD [address] [place] [address] 01/05/2025 1:15 PM EDT Office Visit [facility] OPTOMETRY [address] [place] [address] Eladia Kaufman, OD [address] [place] [address] 01/08/2025 1:00 PM EDT Clinical Support [facility] MEDICINE [address] [place] [address] Marysol Tovar, HAWK 01/19/2025 11:00 AM EDT Office Visit [facility] MEDICINE [address] [place] [address] Danis Yanez MD [address] [place] [address] documented as of this encounter Visit Diagnoses Diagnosis Anxiety state Anxiety state, unspecified documented in this encounter Additional Health Concerns Assessment Noted Time PHQ-9 Depression Total Score: 7 11/10/19 23 3:56 PM EDT documented as of this encounter Care Teams Trap Operator Relationship Specialty Start Date End Date Laney Kirkpatrick MD [address] [place] [address] PCP - General Family Medicine 11/25/17 documented as of this encounter
--- OUTSIDE RECORDS SUMMARY | 2024-12-08 13:38 | XMS_ITS | Encounter Summary ---
Author Organization [employer] Address 75 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 Oxycodone count was 69, anticipated [...] Info) Description 12/19/2024 1:00 PM EDT Nutrition [facility] DIABETES/NUTRITION [address] [place] [address] Alejandra Dodd, ENEDINA [address] [place] [address] 12/25/2024 2:15 PM EDT Office Visit [facility] MEDICINE [address] [place] [address] Laney Kirkpatrick MD 230 [place] [address] 01/05/2025 1:15 PM EDT Office Visit [facility] OPTOMETRY [address] [place] [address] Eladia Kaufman, OD [address] [place] [address] 01/08/2025 1:00 PM EDT Clinical Support [facility] MEDICINE [address] [place] [address] Marysol Tovar, HAWK 01/19/2025 11:00 AM EDT Office Visit [facility] MED[facility]INE [address] [place] [address] Danis Yanez MD 230 [place] [address] documented as of this encounter Visit Diagnoses Diagnosis Other insomnia documented in this encounter Care Teams English Language Learner Teacher Relationship Specialty Start Date End Date Laney Kirkpatrick MD [address] [place] [address] PCP - General Family Medicine 11/25/17 documented as of this encounter
--- OUTSIDE RECORDS SUMMARY | 2024-12-08 13:38 | XMS_ITS | Encounter Summary ---
Author Organization [employer] Address [address] [facility] [address] 7t [place] [address] Care Team Providers Care Network Security Engineer Name Role Phone Laney Kirkpatrick MD Primary Care Provider + Reason for Visit * Reason Comments Med Refill Encounter Details Date Type Department Care Team ([facility] st Contact Info) Description 03/20/2024 Refill [facility] ADULT DENTAL [address] [place] [address] Pawel Pate DDS [address] [place] [address] Social History Tobacco Use Types Packs/Day Years [...] Description 12/19/2024 1:00 PM EDT Nutrition [facility] DIABETES/NUTRITION [address] [place] [address] Alejandra Dodd, ENEDINA 230 [place] [address] 12/25/2024 2:15 PM EDT Office Visit [facility] MEDICINE [address] [place] [address] Laney Kirkpatrick MD 230 [place] [address] 01/05/2025 1:15 PM EDT Office Visit [facility] OPTOMETRY [address] [place] [address] Eladia Kaufman OD 267 [place] [address] 01/08/2025 1:00 PM EDT Clinical Support [facility] MEDICINE [address] [place] [address] Marysol Tovar RN 01/19/2025 11:00 AM EDT Office Visit [facility] MEDICINE [address] [place] [address] Danis Yanez MD 230 [place] [address] documented as of this encounter Visit Diagnoses Not on filedocumented in this encounter Additional Health Concerns Assessment Noted Time PHQ-9 Depression Total Score: 7 11/10/19 23 3:56 PM EDT documented as of this encounter Care Teams Network Security Engineer Relationship Specialty Start Date End Date Laney Kirkpatrick MD 230 [place] [address] PCP - General Family Medicine 11/25/17 documented as of this encounter
--- OUTSIDE RECORDS SUMMARY | 2024-12-08 13:38 | XMS_ITS | Encounter Summary ---
Author Organization [employer] [facility] Address 75 [facility] 7t [place] [address] Care Team Providers Care Manager Data Name Role Phone Laney Kirkpatrick MD Primary Care Provider + Encounter Details Date Type Department Care Team (Late Contact Info) Description 07/09/2022 Abstract [facility] MEDICINE [address] [place] [address] [phone] ProviderDina MD Social History Tobacco Use Types [...] Info) Description 12/19/2024 1:00 PM EDT Nutrition [facility] DIABETES/NUTRITION [address] [place] [phone] [place], [place] [phone] 12/25/2024 2:15 PM EDT Office Visit [facility] MEDICINE [address] [place] [address] [phone] Laney Kirkpatrick MD [address] [place] [phone] 01/05/2025 1:15 PM EDT Office Visit [facility] OPTOMETRY [address] [place] [address] Eladia Kaufman, OD [address] [place] [address] 01/08/2025 1:00 PM EDT Clinical Support [facility] MEDICINE [address] [place] [address] Marysol Tovar, HAWK 01/19/2025 11:00 AM EDT Office Visit [facility] MEDICINE [address] [place] [address] Danis Yanez MD [address] [place] [address] documented as of this encounter Visit Diagnoses Not on filedocumented in this encounter Care Teams Manager Data Relationship Specialty Start Date End Date Laney Kirkpatrick MD [address] [place] [address] PCP - General Family Medicine 11/25/17 documented as of this encounter
--- OUTSIDE RECORDS SUMMARY | 2024-12-08 13:38 | XMS_ITS | Encounter Summary ---
Author Organization [employer] Address 75 [facility] 7t [place] [address] Care Team Providers Care Multi Slide Machine Tender Name Role Phone Laney Kirkpatrick MD Primary Care Provider + Reason for Visit * Reason Onset Date Comments Med Refill 09/06/2024 Encounter Details Date Type Department Care Team ([facility] Contact Info) Description 09/06/2024 Telephone [facility] MEDICINE 230 [place], [place] [phone] Laney Kirkpatrick MD 230 [place], [place] [phone] Med Refill Social History Tobacco Use Types [...] mL nasal spray To be sent to: [facility]/pharmacy #[id number] [place] [address] documented in this encounter Plan of Treatment Upcoming Encounters Date Type Department Care Team (Late st Contact Info) Description 12/19/2024 1:00 PM EDT Nutrition [facility] DIABETES/NUTRITION [address] [place] [address] [place], [place] [phone] 12/25/2024 2:15 PM EDT Office Visit [facility] MEDICINE 230 [place], [place] [phone] Laney Kirkpatrick MD 230 [place], [place] [phone] 01/05/2025 1:15 PM EDT Office Visit [facility] OPTOMETRY [address] [place] [address] Georginaelza Eladia, OD 267 [place] [address] 01/08/2025 1:00 PM EDT Clinical Support [facility] MEDICINE [address] [place] [address] Marysol Tovar, HAWK 01/19/2025 11:00 AM EDT Office Visit [facility] MEDICINE [address] [place] [address] Danis Yanez MD [address] [place] [address] documented as of this encounter Visit Diagnoses Diagnosis Cervical radiculopathy due to degenerative joint disease of spine documented in this encounter Additional Health Concerns Assessment Noted Time PHQ-9 Depression Total Score: 7 11/10/19 23 3:56 PM EDT documented as of this encounter Care Teams Multi Slide Machine Tender Relationship Specialty Start Date End Date Laney Kirkpatrick MD [address] [place] [address] PCP - General Family Medicine 11/25/17 documented as of this encounter
--- OUTSIDE RECORDS SUMMARY | 2024-12-08 13:38 | XMS_ITS | Encounter Summary ---
Author Organization [employer] Address 75 [facility] 7t [place] [address] Care Team Providers Care Pitching Coach Name Role Phone Laney Kirkpatrick MD Primary Care Provider + Reason for Visit * Reason Onset Date Comments Nurse Triage 12/08/2024 Encounter Details Date Type Department Care Team ([facility] st Contact Info) Description 12/08/2024 Telephone [facility] MEDICINE 230 [place], [place] [phone] Laney Kirkpatrick MD 230 [place] [address] Nurse Triage Social History Tobacco Use Types Packs/Day Years [...] Miscellaneous Notes * Telephone Encounter - Melissa Chawla RN - 12/08/2024 9:00 AM EDT called pt to triage, spoke to pt. pt states since early this morning, having left sided chest pain.pt states mild sob but denies chest wall tenderness, severe or sustained sob, vomiting, nausea, or other associated symptoms. advised that with chest pain and sob, needs to be evaluated in the ER. advised not to drive herself and if severe symptoms to call 911. pt understands and will follow up next week as needed. insurance verified. Protocol Used: Chest Pain (Adult) Protocol-Based Disposition: Go to ED Now Positive Triage Questions: * Pain also in shoulder(s) or arm(s) or jaw * Difficulty breathing * All higher-acuity triage questions were negative Care Advice Discussed: * Reasons To Call Back - You become worse * Telephone Encounter - Cale Chavez - 12/08/2024 8:29 AM EDT Symptom: Chest Pain - Adult Outcome: Transfer to a nurse or provider NOW! Reason: Trouble breathing The caller accepted this outcome. documented in this encounter Plan of Treatment Upcoming Encounters Date Type Department Care Team ([facility] st Contact Info) Description 12/19/2024 1:00 PM EDT Nutrition [facility] DIABETES/NUTRITION 230 [place] [address] Alejandra Dodd, ENEDINA 230 [place] [address] 12/25/2024 2:15 PM EDT Office Visit [facility] MEDICINE 230 [place] [address] Laney Kirkpatrick MD 230 [place] [address] 01/05/2025 1:15 PM EDT Office Visit [facility] OPTOMETRY 267 [place] [address] Eladia Kaufman, OD 267 [place] [address] 01/08/2025 1:00 PM EDT Clinical Support [facility] MEDICINE [address] [place] [address] Marysol Tovar RN 01/19/2025 11:00 AM EDT Office Visit [facility] MEDICINE [address] [place] [address] Danis Yanez MD 230 [place] [address] documented as of this encounter Visit Diagnoses Not on filedocumented in this encounter Additional Health Concerns Assessment Noted Time PHQ-9 Depression Total Score: 7 11/10/19 23 3:56 PM EDT documented as of this encounter Care Teams Pitching Coach Relationship Specialty Start Date End Date Laney Kirkpatrick MD [address] [place] [address] PCP - General Family Medicine 11/25/17 documented as of this encounter
--- OUTSIDE RECORDS SUMMARY | 2024-12-08 13:38 | XMS_ITS | Encounter Summary ---
Author Organization [email or web address] [facility] Address [address] [place] [address] 7t [place] [address] Care Team Providers Care Conference Interpreter Name Role Phone Laney Kirkpatrick MD Primary Care Provider + Reason for Visit * Reason Comments Med Refill Encounter Details Date Type Department Care Team ([facility] Contact Info) Description 03/11/2023 Refill [facility] MEDICINE 230 [place], [place] [phone] Laney Kirkpatrick MD 230 [place], [place] [phone] Anxiety state Social History Tobacco Use Types [...] Encounters Date Type Department Care Team ([facility] Contact Info) Description 12/19/2024 1:00 PM EDT Nutrition [facility] DIABETES/NUTRITION 230 [place] [address] 230 [place] [address] 12/25/2024 2:15 PM EDT Office Visit [facility] MEDICINE [address] [place] [address] Laney Kirkpatrick MD 230 [place] [address] 01/05/2025 1:15 PM EDT Office Visit [facility] OPTOMETRY 267 [place] [address] Eladia Kaufman, OD 267 [place] [address] 01/08/2025 1:00 PM EDT Clinical Support [facility] MEDICINE [address] [place] [address] Marysol Tovar, HAWK 01/19/2025 11:00 AM EDT Office Visit [facility] MEDICINE [address] [place] [address] Danis Yanez MD [address] [place] [address] documented as of this encounter Visit Diagnoses Diagnosis Anxiety state Anxiety state, unspecified documented in this encounter Additional Health Concerns Assessment Noted Time PHQ-9 Depression Total Score: 7 11/10/19 23 3:56 PM EDT documented as of this encounter Care Teams Conference Interpreter Relationship Specialty Start Date End Date Laney Kirkpatrick MD [address] [place] [address] PCP - General Family Medicine 11/25/17 documented as of this encounter
--- OUTSIDE RECORDS SUMMARY | 2024-12-08 13:38 | XMS_ITS | Encounter Summary ---
Author Organization [employer] [facility] Address [address] [place] [address] 7t [place] [address] Care Team Providers Care Hotel Breakfast Attendant Name Role Phone Laney Kirkpatrick MD Primary Care Provider + Reason for Visit * Reason Comments Med Refill Encounter Details Date Type Department Care Team ([facility] Contact Info) Description 04/21/2023 Refill [facility] MEDICINE 230 [place], [place] [phone] Laney Kirkpatrick MD 230 [place], [place] [phone] Other insomnia Social History Tobacco Use Types [...] Upcoming Encounters Date Type Department Care Team ([facility] Contact Info) Description 12/19/2024 1:00 PM EDT Nutrition [facility] DIABETES/NUTRITION 230 [place] [address] 230 [place] [address] 12/25/2024 2:15 PM EDT Office Visit [facility] MEDICINE [address] [place] [address] Laney Kirkpatrick MD 230 [place] [address] 01/05/2025 1:15 PM EDT Office Visit [facility] OPTOMETRY 267 [place] [address] Eladia Kaufman, OD 267 [place] [address] 01/08/2025 1:00 PM EDT Clinical Support [facility] MEDICINE [address] [place] [address] Marysol Tovar, HAWK 01/19/2025 11:00 AM EDT Office Visit [facility] MEDICINE [address] [place] [address] Danis Yanez MD [address] [place] [address] documented as of this encounter Visit Diagnoses Diagnosis Other insomnia documented in this encounter Additional Health Concerns Assessment Noted Time PHQ-9 Depression Total Score: 7 11/10/19 23 3:56 PM EDT documented as of this encounter Care Teams Hotel Breakfast Attendant Relationship Specialty Start Date End Date Laney Kirkpatrick MD [address] [place] [address] PCP - General Family Medicine 11/25/17 documented as of this encounter
--- OUTSIDE RECORDS SUMMARY | 2024-12-08 13:38 | XMS_ITS | Encounter Summary ---
Author Organization [employer] Address 75 [facility] 7t [place] [address] Care Team Providers Care Certified Ophthalmic Surgical Assistant Name Role Phone Laney Kirkpatrick MD Primary Care Provider + Reason for Visit * Reason Onset Date Comments Med Refill 01/14/2023 Encounter Details Date Type Department Care Team ([facility] Contact Info) Description 01/14/2023 Telephone [facility] MEDICINE 230 [place], [place] [phone] Laney Kirkpatrick MD 230 [place] [address] Med Refill Social History Tobacco Use Types [...] Info) Description 12/19/2024 1:00 PM EDT Nutrition [facility] DIABETES/NUTRITION 230 [place] [address] Alejandra Dodd, ENEDINA 230 [place] [address] 12/25/2024 2:15 PM EDT Office Visit [facility] MEDICINE 230 [place] [address] Laney Kirkpatrick MD 230 [place] [address] 01/05/2025 1:15 PM EDT Office Visit [facility] OPTOMETRY 267 [place] [address] Eladia Kaufman, OD 267 [place] [address] 01/08/2025 1:00 PM EDT Clinical Support [facility] MEDICINE 230 [place] [address] Marysol Tovar RN 01/19/2025 11:00 AM EDT Office Visit [facility] MEDICINE 230 [place] [address] Danis Yanez MD 230 [place] [address] documented as of this encounter Visit Diagnoses Not on filedocumented in this encounter Additional Health Concerns Assessment Noted Time PHQ-9 Depression Total Score: 7 11/10/19 23 3:56 PM EDT documented as of this encounter Care Teams Certified Ophthalmic Surgical Assistant Relationship Specialty Start Date End Date Laney Kirkpatrick MD [address] [place] [address] PCP - General Family Medicine 11/25/17 documented as of this encounter
--- OUTSIDE RECORDS SUMMARY | 2024-12-08 13:38 | XMS_ITS | Encounter Summary ---
Author Organization [employer] Address 75 [facility] 7t [place] [address] Care Team Providers Care Slitter Creaser Slotter Helper Name Role Phone Laney Kirkpatrick MD Primary Care Provider + Reason for Visit * Reason Onset Date Comments Med Refill 12/04/2024 Encounter Details Date Type Department Care Team ([facility] st Contact Info) Description 12/04/2024 Refill [facility] MEDICINE 230 [place] [address] Laney Kirkpatrick MD 230 [place] [address] Cervical radiculopathy due to degenerative joint disease [...] Encounter - Jose Ramon Connell - 12/04/2024 4:18 PM EDT TC from pt requesting medication refill. Medications needing refill : oxyCODONE (Roxicodone) 10 MG immediate release tablet zolpidem (Ambien) 10 MG tablet To be sent to: [facility]/pharmacy [address] [place] [address] documented in this encounter Plan of Treatment Upcoming Encounters Date Type Department Care Team (Late st Contact Info) Description 12/19/2024 1:00 PM EDT Nutrition [facility] DIABETES/NUTRITION 230 [place] [address] 230 [place] [address] 12/25/2024 2:15 PM EDT Office Visit [facility] MEDICINE 230 [place] [address] Laney Kirkpatrick MD 230 [place] [address] 01/05/2025 1:15 PM EDT Office Visit [facility] OPTOMETRY 267 [place] [address] Eladia Kaufman, OD 267 [place] [address] 01/08/2025 1:00 PM EDT Clinical Support [facility] MEDICINE [address] [place] [address] Marysol Tovar, RN 01/19/2025 11:00 AM EDT Office Visit [address] [address] Danis Yanez MD [address] [place] [address] documented as of this encounter Visit Diagnoses Diagnosis Cervical radiculopathy due to degenerative joint disease of spine documented in this encounter Additional Health Concerns Assessment Noted Time PHQ-9 Depression Total Score: 7 11/10/19 23 3:56 PM EDT documented as of this encounter Care Teams Slitter Creaser Slotter Helper Relationship Specialty Start Date End Date Laney Kirkpatrick MD [address] [place] [address] PCP - General Family Medicine 11/25/17 documented as of this encounter
--- OUTSIDE RECORDS SUMMARY | 2024-12-08 13:38 | XMS_ITS | Encounter Summary ---
Author Organization [employer] Address 75 [facility] 7t [place] [address] Care Team Providers Care Cooler Operator Name Role Phone Laney Kirkpatrick MD Primary Care Provider + Reason for Visit * Reason Comments Med Change Request Encounter Details Date Type Department Care Team ([facility] st Contact Info) Description 07/18/2023 Refill [facility] MEDICINE 230 [place], [place] [phone] Shadia Nieves DO 230 [place] [address] Panic disorder without agoraphobia Social History Tobacco [...] Info) Description 12/19/2024 1:00 PM EDT Nutrition [facility] DIABETES/NUTRITION [address] [place] [address] 230 [place] [address] 12/25/2024 2:15 PM EDT Office Visit [facility] MEDICINE [address] [place] [address] Laney Kirkpatrick MD [address] [place] [address] 01/05/2025 1:15 PM EDT Office Visit [facility] OPTOMETRY [address] [place] [address] TarEladia bertrand, OD 267 [place] [address] 01/08/2025 1:00 PM EDT Clinical Support [facility] MEDICINE [address] [place] [address] Marysol Tovar RN 01/19/2025 11:00 AM EDT Office Visit [facility] MEDICINE [address] [place] [address] Danis Yanez MD [address] [place] [address] documented as of this encounter Visit Diagnoses Diagnosis Panic disorder without agoraphobia documented in this encounter Additional Health Concerns Assessment Noted Time PHQ-9 Depression Total Score: 7 11/10/19 23 3:56 PM EDT documented as of this encounter Care Teams Cooler Operator Relationship Specialty Start Date End Date Laney Kirkpatrick MD 230 [place] [address] PCP - General Family Medicine 11/25/17 documented as of this encounter
--- OUTSIDE RECORDS SUMMARY | 2024-12-08 13:38 | XMS_ITS | Encounter Summary ---
Author Organization [employer] [facility] Address [address] [place] [address] 7t [place] [address] Care Team Providers Care Oracle Ebs Architect Name Role Phone Laney Kirkpatrick MD Primary Care Provider + Reason for Visit * Reason Comments Med Refill Encounter Details Date Type Department Care Team ([facility] Contact Info) Description 03/12/2023 Refill [facility] MEDICINE 230 [place], [place] [phone] Laney Kirkpatrick MD 230 [place] [address] Cervical radiculopathy due to degenerative joint disease [...] Upcoming Encounters Date Type Department Care Team ([facility] Contact Info) Description 12/19/2024 1:00 PM EDT Nutrition [facility] DIABETES/NUTRITION 230 [place] [address] 230 [place] [address] 12/25/2024 2:15 PM EDT Office Visit [facility] MEDICINE [address] [place] [address] Laney Kirkpatrick MD [address] [place] [address] 01/05/2025 1:15 PM EDT Office Visit [facility] OPTOMETRY [address] [place] [address] TarkaEladia, OD 267 [place] [address] 01/08/2025 1:00 PM EDT Clinical Support [facility] MEDICINE [address] [place] [address] Marysol Tovar RN 01/19/2025 11:00 AM EDT Office Visit [facility] MEDICINE [address] [place] [address] Danis Yanez MD [address] [place] [address] documented as of this encounter Visit Diagnoses Diagnosis Cervical radiculopathy due to degenerative joint disease of spine Anxiety state Anxiety state, unspecified documented in this encounter Additional Health Concerns Assessment Noted Time PHQ-9 Depression Total Score: 7 11/10/19 23 3:56 PM EDT documented as of this encounter Care Teams Oracle Ebs Architect Relationship Specialty Start Date End Date Laney Kirkpatrick MD [address] [place] [address] PCP - General Family Medicine 11/25/17 documented as of this encounter
--- OUTSIDE RECORDS SUMMARY | 2024-12-08 13:38 | XMS_ITS | Encounter Summary ---
Author Organization [employer] Address 75 [facility] 7t [place] [address] Care Team Providers Care Peanut Separator Name Role Phone Laney Kirkpatrick MD Primary Care Provider + Reason for Visit * Reason Onset Date Comments Med Refill 08/07/2024 Encounter Details Date Type Department Care Team ([facility] Contact Info) Description 08/07/2024 Telephone [facility] MEDICINE 230 [place], [place] [phone] Laney Kirkpatrick MD 230 [place] [address] Med Refill Social History Tobacco Use Types [...] 10 MG tablet To be sent to: [facility]/pharmacy #[id number] [place] [address] - [address] [place] [address] documented in this encounter Plan of Treatment Upcoming Encounters Date Type Department Care Team (Late st Contact Info) Description 12/19/2024 1:00 PM EDT Nutrition [facility] DIABETES/NUTRITION 230 [place] [address] 230 [place] [address] 12/25/2024 2:15 PM EDT Office Visit [facility] MEDICINE 230 [place] [address] Laney Kirkpatrick MD 230 [place] [address] 01/05/2025 1:15 PM EDT Office Visit [facility] OPTOMETRY 267 [place] [address] Eladia Kaufman, OD 267 [place] [address] 01/08/2025 1:00 PM EDT Clinical Support [address] [address] Marysol Tovar, HAWK 01/19/2025 11:00 AM EDT Office Visit [address] [address] Danis Yanez MD [address] [place] [address] documented as of this encounter Visit Diagnoses Not on filedocumented in this encounter Additional Health Concerns Assessment Noted Time PHQ-9 Depression Total Score: 7 11/10/19 23 3:56 PM EDT documented as of this encounter Care Teams Peanut Separator Relationship Specialty Start Date End Date Laney Kirkpatrick MD [address] [place] [address] PCP - General Family Medicine 11/25/17 documented as of this encounter
--- OUTSIDE RECORDS SUMMARY | 2024-12-08 13:38 | XMS_ITS | Encounter Summary ---
Author Organization [facility] [facility] Address 75 [facility] 7t [place] [address] Care Team Providers Care Process Improvement Specialist Name Role Phone Laney Kirkpatrick MD Primary Care Provider + Encounter Details Date Type Department Care Team (Late Contact Info) Description 07/09/2022 Abstract [facility] MEDICINE [address] [place] [address] [phone] ProviderDina MD Social History Tobacco Use Types [...] Description 12/19/2024 1:00 PM EDT Nutrition [facility] DIABETES/NUTRITION [address] [place] [phone] 230 [place], [place] [phone] 12/25/2024 2:15 PM EDT Office Visit [facility] MEDICINE [address] [place] [address] [phone] Laney Kirkpatrick MD [address] [place] [address] 01/05/2025 1:15 PM EDT Office Visit [facility] OPTOMETRY [address] [place] [address] Eladia Kaufman, OD 267 [place] [address] 01/08/2025 1:00 PM EDT Clinical Support [facility] MEDICINE [address] [place] [address] Marysol Tovar, HAWK 01/19/2025 11:00 AM EDT Office Visit [facility] MEDICINE [address] [place] [address] Danis Yanez MD [address] [place] [address] documented as of this encounter Visit Diagnoses Not on filedocumented in this encounter Care Teams Process Improvement Specialist Relationship Specialty Start Date End Date Laney Kirkpatrick MD [address] [place] [address] PCP - General Family Medicine 11/25/17 documented as of this encounter
--- OUTSIDE RECORDS SUMMARY | 2024-12-08 13:39 | XMS_ITS | Encounter Summary ---
Author Organization [email or web address] Address 75 [facility] 7t [place] [address] Care Team Providers Care Financial Services Education Consultant Name Role Phone Laney Kirkpatrick MD Primary Care Provider + Reason for Visit * Reason Comments Med Refill Encounter Details Date Type Department Care Team ([facility] st Contact Info) Description 04/26/2024 Refill [facility] ADULT DENTAL 230 [place] [address] Heath Francis DDS [address] [place] [address] Social History Tobacco Use Types Packs/Day Years [...] EDT Nutrition [facility] DIABETES/NUTRITION [address] [place] [address] Alejandra Dodd, ENEDINA 230 [place] [address] 12/25/2024 2:15 PM EDT Office Visit [facility] MEDICINE [address] [place] [address] Laney Kirkpatrick MD 230 [place] [address] 01/05/2025 1:15 PM EDT Office Visit [facility] OPTOMETRY [address] [address] Eladia Kaufman OD [address] [place] [address] 01/08/2025 1:00 PM EDT Clinical Support [facility] MEDICINE [address] [place] [address] Marysol Tovar RN 01/19/2025 11:00 AM EDT Office Visit [facility] MEDICINE [address] [place] [address] Danis Yanez MD 230 [place] [address] documented as of this encounter Visit Diagnoses Not on filedocumented in this encounter Additional Health Concerns Assessment Noted Time PHQ-9 Depression Total Score: 7 11/10/19 23 3:56 PM EDT documented as of this encounter Care Teams Financial Services Education Consultant Relationship Specialty Start Date End Date Laney Kirkpatrick MD 230 [place] [address] PCP - General Family Medicine 11/25/17 documented as of this encounter
--- OUTSIDE RECORDS SUMMARY | 2024-12-08 13:39 | XMS_ITS | Encounter Summary ---
Author Organization [employer] Address [address] [place] [address] Care Team Providers Care Echocardiography Radiology Technologist Name Role Phone Laney Kirkpatrick MD Primary Care Provider + Reason for Visit * Reason Comments Med Refill Encounter Details Date Type Department Care Team ([facility] st Contact Info) Description 04/26/2024 Refill [facility] ADULT DENTAL [address] [place] [phone] Basil Francois, YASH [address] [place] [address] Social History Tobacco Use Types Packs/Day Years [...] Info) Description 12/19/2024 1:00 PM EDT Nutrition [facility] DIABETES/NUTRITION [address] [place] [phone] Alejandra Dodd, ENEDINA [address] [place] [address] 12/25/2024 2:15 PM EDT Office Visit [facility] MEDICINE [address] [place] [phone] Laney Kirkpatrick MD [address] [place] [address] 01/05/2025 1:15 PM EDT Office Visit [facility] OPTOMETRY [address] [place] [phone] Eladia Kaufman, OD [address] [place] [address] 01/08/2025 1:00 PM EDT Clinical Support [facility] MEDICINE [address] [place] [phone] Marysol Tovar RN 01/19/2025 11:00 AM EDT Office Visit [facility] MEDICINE [address] [place] [phone] Danis Yanez MD [address] [place] [address] documented as of this encounter Visit Diagnoses Not on filedocumented in this encounter Additional Health Concerns Assessment Noted Time PHQ-9 Depression Total Score: 7 11/10/19 23 3:56 PM EDT documented as of this encounter Care Teams Echocardiography Radiology Technologist Relationship Specialty Start Date End Date Laney Kirkpatrick MD [address] [place] [address] PCP - General Family Medicine 11/25/17 documented as of this encounter
[2024-12-08 13:44] LABS: Alanine Aminotransferase 16 U/L (0-31); Albumin Level 3.9 g/dL (3.5-5.0); Alkaline Phosphatase 87 U/L (39-117); Anion Gap 9 (12-20); Aspartate Amino Transferase 22 U/L (5-31); Bilirubin Total 0.4 mg/dL (0.0-1.0); Blood Urea Nitrogen 12 mg/dL (9-16); Carbon Dioxide 29 mmol/L (22-29); Chloride 106 mmol/L (96-108); Creatinine Clr Calc Pharmacy 72.8; Estimated Glomerular Filt Rate > 60; Glucose Random 103 mg/dL (60-115); Magnesium 2.1 mg/dL (1.6-2.6); Potassium 3.7 mmol/L (3.3-5.1); Sodium 140 mmol/L (135-145); Total Protein 7.3 g/dL (6.5-8.0)
[2024-12-08 13:49] LABS: Troponin-I High Sensitivity < 2.7 ng/L (<3.5-17.0)
[2024-12-08 13:50] LABS: B Type Natriuretic Peptide < 10 pg/mL (<100)
[2024-12-08 14:05] LABS: Influenza A PCR NEGATIVE (Negative); Influenza B PCR NEGATIVE (Negative); Resp Syncy Virus RNA Qual PCR NEGATIVE (Negative); SARS COV2 PCR INHOUSE NEGATIVE (Negative)
[2024-12-08 14:20] VITALS: BP 118/71; PULSE 96; RESP 16; TEMP 36.8; O2SAT 96
== END 2024-12-08 14:21 | disposition home or self-care (01) ==
PROVIDERS: Nurse Practitioner Family; Emergency Provider Emergency Medicine; PCP Internal Medicine
DX: R07.9 Chest pain, unspecified (principal); Z03.818 Encounter for observation for suspected exposure to other biological agents ruled out
CPT/HCPCS: 0241U; 71046; 80053; 83735; 83880; 84484; 85025; 93005; 99283

== ENCOUNTER → 2024-12-08 12:42 | Outpatient (BNV) | payer OTHER, SELFPAY | PROVIDERS: Emergency Provider Emergency Medicine; PCP Internal Medicine; Visit Provider Internal Medicine Cardiovascular Disease | DX: R07.9 Chest pain, unspecified (principal) | CPT/HCPCS: 93010 ==

== ENCOUNTER → 2024-12-08 12:48 | Outpatient (BNV) | payer OTHER, SELFPAY | PROVIDERS: Emergency Provider Emergency Medicine; PCP Internal Medicine; Visit Provider Radiology Diagnostic Radiology | DX: R07.9 Chest pain, unspecified (principal); R06.02 Shortness of breath | CPT/HCPCS: 71046 ==

== ENCOUNTER 2025-03-07 13:00 | Outpatient (AMB) | payer OTHER, SELFPAY ==
--- NOTE | 2025-03-07 13:04 | A.OFFVIS_ITS ---
Vital Signs 03/07/25 13:07 03/07/25 13:23 Height 5 ft 2 in Weight 158 lb 11.725 oz BMI 29.0 BP 106/62 Blood Pressure Location Lt brachial Position Sitting Pulse 85 Pulse Oximetry (%) 99 Oxygen Delivery Method Room Air Intake Visit Reasons: Anemia Intake Note: Ivett presents in the office as a new patient for anemia. CC: States her only concern is constipation. Acupressurist Required: No Allergies morphine (MORPHINE) Allergy (Intermediate, Verified 03/07/25 13:08) RASH Medication List - Last Reconciled 03/07/25 by Addie Aaron CNP acetaminophen 500 mg PO Q6H PRN diclofenac sodium 1% 1 ea topical QID ibuprofen 800 mg PO Q8H PRN loratadine (Allergy Relief (loratadine)) 10 mg PO DAILY lorazepam (Ativan) 0.5 mg PO BID PRN naloxone 4 mg/actuation (Narcan) 4 mg intranasal Q2M PRN oxycodone 10 mg PO Q6H PRN zolpidem 10 mg PO BEDTIME PRN HPI HPI Anemia: Details: Patient is a 59-year-old female with PMH of depression, PTSD, OA, myofascial pain syndrome and drug-induced constipation. Referred by PCP for further evaluation of anemia. Patient presents for evaluation of anemia; accompanied by granddaughter. Mild anemia first documented in 2021, though patient was only recently informed. Current hemoglobin level is 11 g/dL. Reports a bowel pattern of once per week without straining and denies observing stool consistency, though no blood has been noted. Constipation onset corresponds with initiation of oxycodone for chronic pain. Patient states appetite has decreased over the years without a specific cause and only consumes small portions. Weight has remained stable, fluctuating between upper 140s?150s. Patient denies overt GI bleeding, melena, hematochezia, abdominal pain, nausea, or vomiting. She also denies heartburn, dysphagia (except dietary challenges due to dental status with no teeth), fatigue, or systemic symptoms. Dietary and hydration history suggests low fiber and variable fluid intake, with recent increased water consumption. No complaints of increased, joint swelling, redness or pain during exercise except occasional leg pain after extended walks. Comorbid chronic conditions include chronic pain and potential mild vitamin D deficiency as previously documented. Patient denies: fever/chills, n/v, appetite changes, pyrosis, regurgitation,dysphasia, unintentional wt loss, ab pain or melena/hematochezia. Social hx: -denies ETOH use -denies recreational drug use -non-smoker - family hx as below -denies personal hx of CA -denies significant cardiopulmonary history -tolerated anesthesia in the past without difficulty. [facility] Medical History (Updated 03/09/25 @ 10:10 by Addie Aaron CNP) Anemia Constipation due to opioid therapy Anxiety Acute shoulder pain Myofascial pain syndrome Surgical History H/O excision of dermoid cyst H/O shoulder surgery History of cholecystectomy History of tubal ligation Social History Alcohol intake: former Current occupational status: disabled Current occupation: left hand Review of Systems Const Reports as per HPI ENT Reports as per HPI Card Reports as per HPI Resp Reports as per HPI GI Reports as per HPI Reports as per HPI Physical Exam Vital Signs: Last Vital Signs Pulse 85 03/07/25 13:07 BP 106/62 03/07/25 13:07 Pulse Ox 99 03/07/25 13:23 Oxygen Delivery Method Room Air 03/07/25 13:23 BMI result Body Mass Index 29.0 Const General: healthy appearing, no acute distress and well developed Nutritional Appearance: average body habitus Orientation/consciousness: patient oriented x3 HEENT Head: Yes normal to inspection, Yes normocephalic and Yes atraumatic Face and sinus: Yes normal facial exam Eyes General: appearance normal, both eyes and all related structures Neck Neck: Yes normal visual inspection Resp Effort & Inspection: normal respiratory effort, able to speak in complete sentences, no tracheal deviation and symmetric chest movement Auscultation: clear to auscultation bilaterally Cardio Jugular venous distension: no JVD Rate: regular rate Rhythm: regular rhythm Heart sounds: S1 normal heart sound present, S2 normal heart sound present, no gallops and no murmurs GI Inspection: Yes normal to inspection, No distended and Yes obesity Palpation (GI): Soft to palpation, not firm, nontender and No hepatosplenomegaly present Auscultation: normal bowel sounds Neuro General: patient oriented x3 Gait exam (Neuro): Normal gait present Psych Appearance: grossly normal Mental Status: mental status grossly normal Speech and movement: Normal speech and movement present Affect: normal affect Attitude: cooperative Thought process: Normal thought process present Thought content: Normal thought content present Insight: Good insight present (Psych) Judgement: Good judgement present (Psych) Assessment & Plan Assessment & Plan (1) Colon cancer screening: Code(s): Z12.11 - Encounter for screening for malignant neoplasm of colon Category: Medical Plan: Strongly recommended colonoscopy as definitive modality, especially in context of unexplained anemia. Patient hesitant due to concerns about prep and procedure but agreed to proceed tentatively. Medications: -prescriptions for laxative tablets and MiraLax sent to pharmacy; instructions for Gatorade purchase and clear liquid diet given. Patient educated on scheduling process, procedure preparation, including avoiding certain foods and ensuring clear liquid intake Advised on necessity for ride post-procedure due to sedation. (2) Constipation due to opioid therapy: Code(s): K59.03 - Drug induced constipation; T40.2X5A - Adverse effect of other opioids, initial encounter Category: Medical Plan: Correlation with oxycodone use; low fiber and hydration contribute. Additional Testing: None at this time; focus on clinical management. Medication Management: Prescribed polyethylene glycol 3350 (Miralax) 17g oral daily. Reinforced lifestyle modifications to promote regularity: -higher fiber diet, examples provided -adequate hydration with water -150 minutes of moderate intensity exercise per week (3) Anemia: Code(s): D64.9 - Anemia, unspecified Category: Medical Qualifiers: Anemia type: unspecified type Qualified Code(s): D64.9 - Anemia, unspecified Plan: Normocytic anemia, lab findings (Hb 11 g/dL), and no prior full evaluation; further workup necessary to exclude GI blood loss. Additional Testing: Comprehensive lab panel including iron studies, vitamin D, vitamin B12, and thyroid function. Ensure results align with prior PCP orders to avoid redundancy. Lifestyle Recommendations: Encourage increased iron and fiber intake from dietary sources. Plan Advised that transient leg pain after extended walking is likely musculoskeletal and related to increased activity. Instructed to monitor for swelling, redness, or persistent pain, and to report these to PCP for further evaluation. Follow-up after colonoscopy or sooner as needed Time: I spent a total of 40 minutes on the date of encounter which includes: Preparing to see the patient (reviewed previous documentation, test results and medical history) Performing a medically appropriate exam and/or evaluation Ordering medications, tests, and procedures Documenting clinical information in the health record Orders: Orders TSH reflex Free T4 03/07/25 K59.03 - Drug induced constipation, T40.2X5A - Adverse effect of other opioids, initial encounter Vitamin B12 and Folate 03/07/25 K59.03 - Drug induced constipation, T40.2X5A - Adverse effect of other opioids, initial encounter Vitamin D 1,25 dihydroxy 03/07/25 K59.03 - Drug induced constipation, T40.2X5A - Adverse effect of other opioids, initial encounter Medications: New polyethylene glycol 3350 (Miralax) Take 17G (one cap full) daily with 8oz of water 17 grams PO DAILY 510 grams 2RF constipation 30 days bisacodyl (Dulcolax (bisacodyl)) Take four tablets pre colonoscopy instructions 20 mg (4 x 5 mg) PO ONCE 4 tabs 0RF 1 day polyethylene glycol 3350 (Miralax) per colonoscopy prep instructions 238 grams PO ONCE 238 grams 0RF Coding Level of Care Code New Pt New Pt Level 3 (65698) Patient Type New Diagnoses Colon cancer screening Z12.11 Constipation due to opioid therapy K59.03; T40.2X5A Anemia, unspecified type D64.9 Anemia type: unspecified type
[2025-03-07 13:07] VITALS: BP 106/62; PULSE 85; BMI 29.0
[2025-03-07 13:23] VITALS: O2SAT 99
--- OUTSIDE RECORDS SUMMARY | 2025-03-07 13:36 | XMS_ITS | Encounter Summary ---
Author Organization [employer] Address [address] [facility] [address] [place] [address] Care Team Providers Care Roofer Apprentice Name Role Phone Laney Kirkpatrick MD Primary Care Provider + Encounter Details Date Type Department Care Team ([facility] Contact Info) Description 12/18/2022 Orders Only [facility] MEDICINE [address] [place] [phone] Laney Kirkpatrick MD [address] [place] [phone] Social History Tobacco Use Types Packs/Day Years [...] Department Care Team (Late Contact Info) Description 03/09/2025 12:15 PM EDT Telemedicine [facility] MED[facility]INE [address] [place] [phone] Laney Kirkpatrick MD [address] [place] [address] 07/10/2025 1:00 PM EST Clinical Support [facility] MEDICINE [address] [place], [place] [phone] Marysol Tovar RN documented as of this encounter Visit Diagnoses Not on filedocumented in this encounter Additional Health Concerns Assessment Noted Time PHQ-9 Depression Total Score: 7 11/10/19 23 3:56 PM EDT documented as of this encounter Care Teams Roofer Apprentice Relationship Specialty Start Date End Date Laney Kirkpatrick MD [address] [place] [address] PCP - General Family Medicine 11/25/17 documented as of this encounter
== END 2025-03-07 13:44 | disposition home or self-care (01) ==
LOC: HO.HGI 13:01
PROVIDERS: PCP Internal Medicine; Visit Provider Nurse Practitioner Family
DX: D64.9 Anemia, unspecified (principal); K59.03 Drug induced constipation; T40.2X5A Adverse effect of other opioids, initial encounter
CPT/HCPCS: 99203

== ENCOUNTER 2025-03-07 13:00 | Outpatient (REF) | payer OTHER, SELFPAY ==
[2025-03-07 15:07] LABS: Folate 8.2 ng/mL (> or = 4.0); Vitamin B12 348 pg/mL (200-900)
[2025-03-11 17:09] LABS: VITAMIN D (1,25 OH) D3 27 pg/mL; Vit D (1,25-Dihydroxy) Total 40 pg/mL (18-72); Vitamin D (1,25 OH) D2 13 pg/mL
== END 2025-03-07 13:01 | disposition home or self-care (01) ==
LOC: HO.LAB 13:00
PROVIDERS: PCP Internal Medicine; Visit Provider Nurse Practitioner Family
DX: Z12.11 Encounter for screening for malignant neoplasm of colon (principal); K59.03 Drug induced constipation; T40.2X5A Adverse effect of other opioids, initial encounter; D64.9 Anemia, unspecified; Z79.899 Other long term (current) drug therapy; Z79.891 Long term (current) use of opiate analgesic
CPT/HCPCS: 36415; 82607; 82652; 82746; 84443; 99202